=== PATIENT | male | born 1995 | race Caucasian/White ===

== ENCOUNTER 2018-11-30 15:25 | Outpatient (CLI) | payer BC, SELFPAY ==
[2018-11-30 16:00] LABS: HCT 42.6 % (40.0-50.0); HGB 14.4 g/dL (13.5-17.5); Mean Corp. HGB Concentration 33.8 g/dL (32.0-36.0); Mean Corpuscular Hemoglobin 27.7 pg (27.0-33.0); Mean Corpuscular Volume 81.9 fL (80-95); Mean Platelet Volume 9.2 fL (8.0-11.0); Platelet Count 287 x1000/uL (130-400); RBC Distribution Width 12.9 % (11.8-14.1)
[2018-11-30 18:10] LABS: ALT 80 U/L (12-78); AST 42 U/L (15-37); Albumin 4.2 g/dL (3.4-5.0); Alkaline Phosphatase 94 U/L (46-116); Anion Gap 9.6 mmol/L (3-11); BUN 15 mg/dL (7-18); Bilirubin, Total 0.4 mg/dL (0.2-1.0); CO2 27.4 mmol/L (21.0-32.0); CREATININE 0.92 mg/dL (0.70-1.30); Calcium 9.1 mg/dL (8.5-10.1); Chloride 103 mmol/L (98-107); Glucose 90 mg/dL (70-100); Sodium 140 mmol/L (136-145); TSH (W/Ref FT4) 1.66 uIU/mL (0.358-3.74); Total Protein 7.6 g/dL (6.4-8.2)
== END 2018-11-30 15:45 ==
PROVIDERS: Family Medicine; PCP Family Medicine; Visit Provider Family Medicine
DX: F41.9 Anxiety disorder, unspecified (principal); F39 Unspecified mood [affective] disorder
CPT/HCPCS: 36415; 80053; 85027; 84443

== ENCOUNTER 2019-03-02 15:16 | Emergency (ER) | payer BC, SELFPAY ==
[2019-03-02 15:18] VITALS: BP 128/77; PULSE 81; RESP 12; TEMP 36.5; O2SAT 98
--- NOTE | 2019-03-02 17:10 | ED.GENADUL_ITS ---
Discharge Plan Disposition Patient Disposition: HOME Condition: Stable Discharge Details Chief Complaint: Orthopedic Clinical Impression: Cellulitis of ring finger Primary Care Provider: Gab Adrian ED Provider: Shawna Mota Home Meds and New Rx's Prescriptions: New cephalexin [Keflex] 500 mg capsule 500 mg PO QID 7 Days Qty: 28 RF: 0 sulfamethoxazole-trimethoprim [Bactrim DS] 800-160 mg tablet 1 tab PO BID 7 Days Qty: 14 RF: 0 Continued Aspirin/Acetaminophen/Caffeine [Excedrin Extra Strength Caplet] 1 EACH tablet 1 - 2 ea PO PRN RF: 0 fexofenadine [Aller-ease] 180 MG tablet 180 mg PO PRN RF: 0 ibuprofen 800 MG tablet 800 mg PO TID PRNQty: 20 RF: 0 naproxen sodium [Aleve] 220 mg Capsule 440 mg PO BID RF: 0 No Action ketoconazole 2 % cream 1 applic TP BID Qty: 15 RF: 0 Discharge Instructions Instructions: Cellulitis (ED) Additional Instructions: Take the antibiotics until finished. Call Dr. Mccormack tomorrow morning to schedule a follow-up appointment for reevaluation. Return immediately to the emergency department with any worsening or new concerning symptoms such as fever, increased pain, redness, and swelling. Discharge Data Discharge Date/Time-TO BE ENTERED AT DEPARTURE: 03/02/19 18:29 Discharge Physician: Shawna Mota Medical Decision Making 23-year-old male 1 month status post left wrist ganglion cystectomy and left radio lunate ligament repair who presents with difficulty with full flexion of left fourth finger for the past month, now with development of left fourth fing er erythema and pain. There is redness streaking along the radial aspect of the left fourth finger extending from the base to the tip that appears consistent with a left fourth finger cellulitis/lymphangitis. Unclear if this is related to the surgery but doubtful. Patient states he was scratched by a cat few days ago and there is a very minimal area of erythema approximately 1 mm overlying incision but there is no red streaking extending from the incision. No signs of flexor tenosynovitis. He is otherwise neurovascular intact. There is no evidence of paronychia or or wrist or hand abscess. Has this does appear consistent with infection, will treat with Keflex and call orthopedics at [facility] ([place], [place]) for recommendations. I do not see any indication for imaging at this time. 1730 --discussed with Dr. Horn covering for Dr. Mccormack at [facility] -as there is no signs of flexor tenosynovitis, okay for outpatient antibiotics and recommends adding Bactrim and for patient to call Dr. Mccormack tomorrow for follow-up. Patient advised to call Dr. Mccormack tomorrow morning for follow-up and to return here with any worsening or concerning symptoms HPI General Mode of arrival: ambulatory . Date/Time Provider Initiated Documentation: 03/02/19 15:37 . Limitations to Documentation: no limitations . Information obtained by: patient . HPI Narrative: Patient is a 23-year-old male 1 month status post left wrist ganglion cystectomy and left radio lunate ligament repair by Dr. Mccormack at [facility] who presents with difficulty with full flexion of left fourth finger for the past month, now with development of left fourth finger erythema and pain that he noticed this morning. He denies any injury. He did state that he was scratched by his cat on the incision on his l eft wrist a few days ago. He denies any fever. He states he has not contacted Dr. Mccormack regarding any of these symptoms. He states his tetanus is up to date. Related Data Home Medications Medication Instructions Recorded Confirmed fexofenadine [Aller-ease] 180 mg PO PRN 04/09/14 03/02/19 ibuprofen 800 mg PO TID PRN #20 tab 04/09/14 03/02/19 Aspirin/Acetaminophen/Caffeine 1 - 2 ea PO PRN 01/04/18 03/02/19 [Excedrin Extra Strength Caplet] cephalexin [Keflex] 500 mg PO QID 7 Days #28 cap 03/02/19 naproxen sodium [Aleve] 440 mg PO BID 03/02/19 03/02/19 sulfamethoxazole-trimethoprim 1 tab PO BID 7 Days #14 tab 03/02/19 [Bactrim DS] ketoconazole 1 applic TP BID #15 gm 03/04/19 Previous Rx's Medication Instructions Recorded ibuprofen 800 mg PO TID PRN #20 tab 04/09/14 cephalexin [Keflex] 500 mg PO QID 7 Days #28 cap 03/02/19 sulfamethoxazole-trimethoprim 1 tab PO BID 7 Days #14 tab 03/02/19 [Bactrim DS] ketoconazole 1 applic TP BID #15 gm 03/04/19 Allergies Allergy/AdvReac Type Severity Reaction Status Date / Time albuterol Allergy Unknown Unverified 03/04/19 16:28 amoxicillin [Amoxicillin] AdvReac Unknown Unverified 03/04/19 16:28 potassium clavulanate AdvReac Unknown Unverified 03/04/19 16:28 [From Augmentin] General Stated Complaint: Orthopedic KRISTIAN: 4 Review of Systems Review of Systems All systems reviewed & are unremarkable except as noted in HPI and below Constitutional Reports as per HPI, Denies chills and Denies fever(s) Eyes Denies blurry vision ENT Denies dizziness, Denies sore throat and Denies throat swelling Cardiovascular Denies chest pain and Denies dyspnea Respiratory Denies cough and Denies dyspnea Gastrointestinal Denies abdominal pain, Denies diarrhea and Denies vomiting Genitourinary Denies hematuria and Denies dysuria Musculoskeletal Denies back pain, Denies numbness and Reports other (L 4th finger pain ) Integumentary/Breasts Denies lesions and Denies rash Neurologic Denies dizziness, Denies focal weakness and Denies numbness Allergic/Immunologic Denies throat swelling [facility] Medical History Anxiety Surgical History Biopsy, Soft Tissue (02/16/18) Family History Mother No problems noted. Father No problems noted. Sister No problems noted. Sister No problems noted. Grandfather Essential hypertension Heart disease Hyperlipidemia Grandfather Diabetes Essential hypertension Grandmother Essential hypertension Grandmother Personal history of malignant neoplasm Social History Smoking/Tobacco Use Status: Never Alcohol Intake: current Alcohol Intake frequency: a few times a month Drug use: Never Substance use type: does not use Do you feel safe at home: Yes Do you feel safe in your relationship?: Yes Exam Const General: cooperative, healthy appearing and no acute distress HENMT Head: normal to inspection Mouth: oral mucosae normal Eyes General: appearance normal, both eyes and all related structures Neck Neck: normal visual inspection Resp Effort & Inspection: normal respiratory effort and able to speak in complete sen tences Cardio Rate: regular rate Skin General skin exam: no rashes or lesions noted Neuro General: alert, awake and oriented x3 Motor: muscle tone normal throughout Extrem Hand/finger images: 1. 2 cm well-healing incision from previous ganglion cystectomy 2. Streaky erythema extending from base of medial fourth finger down to medial tip. There is no fluctuance, induration or obvious abscess. Other: Patient able to flex and extend at all fingers but with limitation of full flexion at left fourth finger due to edema. No pain with passive flexion or extension. Cap refill less than 2 seconds. Left radial and ulnar pulses intact. Psych Appearance: grossly normal Affect: normal affect Course Vital Signs Temperature 97.7 F 03/02/19 15:18 Pulse 81 03/02/19 15:18 Respiratory Rate 12 03/02/19 15:18 Blood Pressure 128/77 03/02/19 15:18 Pulse Oximetry 98 03/02/19 15:18 Temperature 97.7 F 03/02/19 15:18 Temperature Source Temporal Artery Scan 03/02/19 15:18 Pulse 81 03/02/19 15:18 Respiratory Rate 12 03/02/19 15:18 Respiratory Effort Non-Labored 03/02/19 15:20 Blood Pressure 128/77 03/02/19 15:18 Blood Pressure Position Sitting 03/02/19 15:18 Pulse Oximetry 98 03/02/19 15:18 Oxygen Delivery Method Room Air 03/02/19 15:18 Oxygen Flow Rate 0 03/02/19 15:18 Pain Level 2 03/02/19 15:20
[2019-03-02] MEDS: Cephalexin 500 MG CAP PO ×2 (17:13→17:48)
[2019-03-02] MEDS: Sulfameth/Trimeth DS TAB 1 TAB PO ×2 (17:48)
== END 2019-03-02 18:29 | disposition home or self-care (01) ==
PROVIDERS: Emergency Provider Physician Assistant; PCP Family Medicine
DX: L03.012 Cellulitis of left finger (principal)
CPT/HCPCS: 99283

== ENCOUNTER 2019-03-04 16:16 | Emergency (ER) | payer BC, SELFPAY ==
[2019-03-04 16:19] VITALS: BP 142/78; PULSE 95; RESP 16; TEMP 36.8; O2SAT 100
--- NOTE | 2019-03-04 16:31 | ED.GENADUL_ITS ---
Discharge Plan Disposition Patient Disposition: HOME Condition: Good Discharge Details Chief Complaint: RashLesion Clinical Impression: Jock itch Primary Care Provider: Gab Adrian ED Provider: Jonathan Maldonado Home Meds and New Rx's Prescriptions: New ketoconazole 2 % cream 1 applic TP BID Qty: 15 RF: 0 Continued Aspirin/Acetaminophen/Caffeine [Excedrin Extra Strength Caplet] 1 EACH tablet 1 - 2 ea PO PRN RF: 0 fexofenadine [Aller-ease] 180 MG tablet 180 mg PO PRN RF: 0 ibuprofen 800 MG tablet 800 mg PO TID PRNQty: 20 RF: 0 naproxen sodium [Aleve] 220 mg Capsule 440 mg PO BID RF: 0 cephalexin [Keflex] 500 mg capsule 500 mg PO QID 7 Days Qty: 28 RF: 0 sulfamethoxazole-trimethoprim [Bactrim DS] 800-160 mg tablet 1 tab PO BID 7 Days Qty: 14 RF: 0 Discharge Instructions Instructions: Jock Itch (ED) Additional Instructions: Please make sure that your underwear, groin and folds are dry at all times. Please use the cream as directed. If you notice spreading of the rash to your arms chest abdomen extremities or other areas please return immediately for reassessment. At this time your symptoms are consistent with a mild yeast infection, and inconsistent with an allergic drug reaction. Continue the antibiotics that you are currently taking. If you notice any worsening of your symptoms, or any new symptoms such as vomiting, diarrhea, fever, chills, shortness of breath, chest pain, numbness, weakness, or fainting , please return immediately to the emergency department for reevaluation. Please follow up with your primary care provider as soon as possible for reassessment and reevaluation. As always, it was a pleasure participating in your medical care today. Referrals: Gab Adrian MD [Primary Care Provider] - Medical Decision Making This is a pleasant 23-year-old male who presents for evaluation of rash on his groin. The patient recently had an infection on his ring finger on his left nondominant hand he was given Bactrim and Keflex, since starting these he did notice mild very itchy rash to his groin bilaterally. This certainly in the pannus fold. It is very moist. Exam demonstrates signs and symptoms consistent with a mild fungal infection,/jock itch. Inconsistent with an allergic drug reaction. No oral lesions. No current clinical evidence of staph scalded skin syndrome, erythema multiforme, erythema migrans, toxic epidermal necrolysis, Sharma-Kana syndrome, Kawasaki-like rash, meningococcemia, pemphigus vulgaris, or necrotizing fasciitis. At this time recommend continuing the current antibiotics, we will add a topical antifungal cream. We discussed red flags which to return, as well as signs and symptoms that would be concerning for an allergic drug reaction rather than just a mild yeast infection. I have extensively reviewed the treatment plan and discharge instructions with the patient. I have addressed all patient concerns at this time. The patient was made aware of what symptoms to monitor for that would warrant a return to the emergency department. Discussed the plan with the patient, they demonstrate verbal understanding and agreement with our assessment and plan at this time. HPI General Date/Time Provider Initiated Documentation: 03/04/19 16:21 . HPI Narrative: This is a pleasant 23-year-old male who presents today for evaluation of rash. Patient had a ganglionic cyst removed from his left wrist proximal to his index finger over a week ago. Things have been doing very well postoperatively however few days afterwards which was about 3 days ago, he noticed a red lesion on the lateral aspect of his ring finger, shortly thereafter the redness quickly spread up his extensor tendon, and around the finger. He was seen in the ED at that time, and started on Keflex and Bactrim. He has been taking this and the redness has been significantly improving. The pain is also been notably improving in his finger. No clinical evidence of f lexor tenosynovitis. He is scheduled to follow-up with his orthopedic surgeon in 4 days on Thursday. However he has noticed a bit of a notably itchy rash on his left and right groin since then. He denies any rash on the rest of his body, he denies any lesions in his mouth. He denies any fever or chills. He has no other complaints. No other modifying factors. Related Data Home Medications Medication Instructions Recorded Confirmed fexofenadine [Aller-ease] 180 mg PO PRN 04/09/14 03/02/19 ibuprofen 800 mg PO TID PRN #20 tab 04/09/14 03/02/19 Aspirin/Acetaminophen/Caffeine 1 - 2 ea PO PRN 01/04/18 03/02/19 [Excedrin Extra Strength Caplet] cephalexin [Keflex] 500 mg PO QID 7 Days #28 cap 03/02/19 naproxen sodium [Aleve] 440 mg PO BID 03/02/19 03/02/19 sulfamethoxazole-trimethoprim 1 tab PO BID 7 Days #14 tab 03/02/19 [Bactrim DS] ketoconazole 1 applic TP BID #15 gm 03/04/19 Previous Rx's Medication Instructions Recorded ibuprofen 800 mg PO TID PRN #20 tab 04/09/14 cephalexin [Keflex] 500 mg PO QID 7 Days #28 cap 03/02/19 sulfamethoxazole-trimethoprim 1 tab PO BID 7 Days #14 tab 03/02/19 [Bactrim DS] ketoconazole 1 applic TP BID #15 gm 03/04/19 Allergies Allergy/AdvReac Type Severity Reaction Status Date / Time albuterol Allergy Unknown Unverified 03/04/19 16:28 amoxicillin [Amoxicillin] AdvReac Unknown Unverified 03/04/19 16:28 potassium clavulanate AdvReac Unknown Unverified 03/04/19 16:28 [From Augmentin] General Stated Complaint: RashLesion KRISTIAN: 4 Review of Systems Review of Systems All systems reviewed & are unremarkable except as noted in HPI and below PFSH Social History Smoking/Tobacco Use Status: Never Alcohol Intake: current Alcohol Intake frequency: a few times a month Drug use: Never Substance use type: does not use Do you feel safe at home: Yes Do you feel safe in your relationship?: Yes Exam Narrative Exam Narrative: 1.Const: Well-nourished, Well-developed, appearing stated age 2.Eyes: PERRL, no conjunctival injection, and symmetrical lids. 3.ENT: Atraumatic external nose and ears. Moist MM. Neck: Symmetric, trachea midline, No thyromegaly. 4.CVS: +S1/S2, No murmurs or gallops. Peripheral pulses 2+ and equal in all extremities. Brisk capillary refill in all extremities. 5.RESP: Unlabored respiratory effort. Clear to auscultation bilaterally. No wheezes rales or rhonchi 6.GI: Soft, Nontender/Nondistended, No hepatosplenomegaly. No guarding or rebound. 7.MSK: Normocephalic/Atraumatic, Extremities w/o deformity or ttp No cyanosis or clubbing, Normal movement of all extremities. Patient's left ring finger demonstrates a small amount of erythema on the medial and lateral aspect, it is not spread past the lines of demarcation that were written previously. In fact it is actually much more minor compared to when those initial lines were made. No significant warmth, fluctuance, or presence of abscess. No significant pain with passive or active flexion or extension of the finger. No other significant abnormalities. 8.Skin: Warm, Dry. Please see musculoskeletal for description of the finger. Patient's groin bilaterally demonstrates a blanching, mildly erythematous flat macular rash. No lesions on the chest back arms or legs. No oral lesions. N egative Nikolsky sign. No large vesicles or bulla. No palpable purpura. No oral lesions. No mucosal lesions. No evidence of severe cellulitis. No evidence of vaccine preventable rash. 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 Sensation grossly intact, no focal neurologic deficits. 10.Psych: (AAO) x3. Appropriate mood and affect Course Vital Signs Temperature 36.8 C 03/04/19 16:19 Pulse 95 H 03/04/19 16:19 Respiratory Rate 16 03/04/19 16:19 Blood Pressure 142/78 H 03/04/19 16:19 Pulse Oximetry 100 03/04/19 16:19 Temperature 36.8 C 03/04/19 16:19 Temperature Source Temporal Artery Scan 03/04/19 16:19 Pulse 95 H 03/04/19 16:19 Respiratory Rate 16 03/04/19 16:19 Respiratory Effort Non-Labored 03/04/19 16:23 Blood Pressure 142/78 H 03/04/19 16:19 Blood Pressure Position Sitting 03/04/19 16:19 Pulse Oximetry 100 03/04/19 16:19 Oxygen Delivery Method Room Air 03/04/19 16:19 Oxygen Flow Rate 0 03/04/19 16:19
== END 2019-03-04 16:47 | disposition home or self-care (01) ==
PROVIDERS: Emergency Provider Student in an Organized Health Care Education/Training Program; PCP Family Medicine
DX: B35.6 Tinea cruris (principal)
CPT/HCPCS: 99283

== ENCOUNTER 2019-10-24 08:27 | Outpatient (CLI) | payer BC, SELFPAY ==
[2019-10-26 09:34] LABS: COVID-19 RT-PCR Result Not Detected (NotDetected)
== END 2019-10-24 08:47 ==
PROVIDERS: PCP Family Medicine; Visit Provider Family Medicine
DX: R05 Cough (principal); R06.02 Shortness of breath
CPT/HCPCS: U0003

== ENCOUNTER 2019-10-28 08:09 | Outpatient (CLI) | payer BC, SELFPAY ==
--- NOTE | 2019-10-28 09:30 | DI.RAD_ITS ---
EXAM: XR CHEST 2V PA LATERAL CLINICAL HISTORY: Cough for 1 month,r05 TECHNIQUE: 2D digital imaging was performed. COMPARISON: RIBS BILATERAL TO INCLUDE CXR from 04/10/2014 FINDINGS: MEDIASTINUM: Normal. HEART: Normal. PULMONARY VASCULATURE: Normal. LUNGS: Clear. PLEURAL SPACE: No pleural effusion or pneumothorax. BONE:Normal. OTHER FINDINGS:Normal. IMPRESSION: No acute pulmonary findings. DATA REPOSITORY: RADIATION DOSE DELIVERED:
== END 2019-10-28 08:29 ==
PROVIDERS: PCP Family Medicine; Visit Provider Family Medicine
DX: R05 Cough (principal)
CPT/HCPCS: 71046

== ENCOUNTER 2020-04-13 13:29 | Outpatient (CLI) | payer BC, SELFPAY ==
[2020-04-16 19:07] LABS: Patient Race White; SARS-CoV-2 RNA Undetected (Undetected); SARS-CoV-2 Specimen Source Nasopharynx
== END 2020-04-13 13:49 ==
PROVIDERS: PCP Nurse Practitioner; Visit Provider Nurse Practitioner
DX: Z11.59 Encounter for screening for other viral diseases (principal)
CPT/HCPCS: U0003

== ENCOUNTER 2020-05-04 12:49 | Outpatient (CLI) | payer BC, SELFPAY ==
[2020-05-06 23:17] LABS: Patient Race White; SARS-CoV-2 RNA Undetected (Undetected); SARS-CoV-2 Specimen Source Nasal
== END 2020-05-04 13:09 ==
PROVIDERS: PCP Nurse Practitioner; Visit Provider Physician Assistant
DX: B34.9 Viral infection, unspecified (principal)
CPT/HCPCS: U0003

== ENCOUNTER 2020-05-04 13:31 | Outpatient (REF) | payer BC, SELFPAY | END 2020-05-04 13:51 | LOC: LBN 13:31 | PROVIDERS: PCP Nurse Practitioner; Visit Provider Physician Assistant | DX: J02.9 Acute pharyngitis, unspecified (principal) | CPT/HCPCS: 87070 ==

== ENCOUNTER 2020-05-05 19:49 | Emergency (ER) | payer BC, SELFPAY ==
[2020-05-05] VITALS (26 sets, daily range): BP systolic 121–152; BP diastolic 71–100; PULSE 76–101; RESP 10–40; TEMP 36.1; O2SAT 95–99
--- NOTE | 2020-05-05 19:45 | RT.EKG_ITS ---
APPROVED REPORT Exam: Resting ECG Patient Location: E HR:92 bpm ECG Measurements Heart Rate [address] 198 P 14 QRSd 91 QRS 49 QT 340 T 11 QTc 420 Conclusion EKG 19: 58 Rate 92, intervals normal, sinus rhythm, no significant ST elevations or depressions, no evidence of STEMI, Q waves is noted in lead III, flattened T waves noted in lead III. No evidence of other signi ficant dysrhythmia or abnormality.
--- NOTE | 2020-05-05 20:00 | DI.CT_ITS ---
EXAM: CT CHEST PE CTA CLINICAL HISTORY: chest pain, SOB, likely covid. TECHNIQUE: Imaging Protocol: Axial CT angiography was performed with multi-slice acquisition and mu lti-planar and/or 3D reconstructions. CONTRAST MATERIAL: Intravenous: Omnipaque 350 Contrast volume:structured data in ml COMPARISON: No exams were available for comparison FINDINGS: CT angiography of the chest was performed with intravenous infusion of 100 cc of Omnipaque 350. The lungs are clear. No pleural effusion. Tracheobronchial tree appears intact. No evidence of pulmonary embolic disease. Thoracic aorta is of normal diameter, no thoracic aortic an eurysm or dissection, major branch vessels appear intact. No mediastinal or hilar adenopathy. Images obtained through the upper abdomen show unremarkable appearance of the visualized portions of the liver, spleen, pancreas, adrenals, and kidneys. IMPRESSION: Negative CT angiogram of the chest. No evidence of pulmonary embolic disease. RADIATION DOSE DELIVERED: 663.96mGy.cm Total DLP 663.96mGy.cm Total DLP DATA REPOSITORY: All CT scans at this facility are submitted to the National Radiology Data Registry (NRDR) Dose Index Registry (DIR) with the [employer] ([employer]). RADIATION OPTIMIZATION: All CT scans at this facility use at least one of these dose optimization te chniques: automated exposure control; mA and/or kV adjustment per patient size (includes targeted exa ms where dose is matched to clinical indication); or iterative reconstruction.
[2020-05-05] MEDS: Normal Saline 1,000 ML 1000 ML IV (20:21)
--- NOTE | 2020-05-05 20:21 | W.ED.GENAD ---
Discharge Plan Disposition Patient Disposition: [facility] Condition: Serious Discharge Details Clinical Impression: Myocarditis, Chest pain Primary Care Provider: Camille Barbour ED Provider: Jonathan Maldonado Home Meds and New Rx's Prescriptions: No Action Aspirin/Acetaminophen/Caffeine [Excedrin Extra Strength Caplet] 1 EACH tablet 1 - 2 ea PO PRN RF: 0 Medical Decision Making 25-year-old male with no significant past medical history who presents today for evaluation of chest pain shortness of breath as well as nausea diarrhea in conjunction with chills and subjective fever. 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 He states that he has come in contact with the person who was Covid positive. Patient states that yesterday he developed his symptoms, as well as mild achy central chest pain. There does appear to be a pleuritic component. No particular aggravating factors. Minimal cough, notably nonproductive. He denies any blood in his stool, he denies any vomiting or hematemesis. He does occasionally smoke. He denies any long trips recent surgeries or procedures. He denies any history of blood clots. He denies any history of cardiac disease. He is obese. He denies high cholesterol hypertension though. No other complaints at this time. No other modifying factors. Physical exam demonstrates no signs of significant hypoxemia, heart rate is mildly tachycardic, blood pressure stable. Screening EKG shows no signs of STEMI, differential is notably highest for Covid/coronavirus. With no signs of [place] hypoxemia there is no current indication for aggressive ventilator or steroid management. However with his symptomatologies I do feel that further work-up is indicated. With his notable and pleuritic chest pain we will CT PE study, will evaluate for other components of organ dysfunction or damage, gently rehydrate, monitor closely and reassess. Additionally patient's results were reviewed and his coronavirus testing is not yet back. No indication for repeat testing at this time as he was just swabbed yesterday. 10:18 PM Patient's laboratory work-up has returned, no white count or left shift. No bandemia. No severe lymphopenia area. D-dimer 352, electrolytes are stable potassium slightly low at 3.3. We will give some IV potassium. Renal function normal. Troponin is 9.48, CRP is 11.4 notably elevated. Procalcitonin is 0.1. CT scan of the chest per virtual radiology shows no evidence of PE or other significant abnormality. EKG shows no evidence of STEMI. Elevated troponin in the setting of suspected viral etiology especially in conjunction with likely coronavirus component certainly leads to high concern for viral myocarditis. Bacterial endocarditis or myocarditis is less likely as the patient denies and has no history of IV or illicit drug use whatsoever. Because of this I did contact [facility], discussed the case with Dr. Pena, Dr. Marsh, Dr. Huertas, and eventually Dr. Sullivan with the medicine team, at this time they agree with the need for transfer. They recommend holding off on any additional medications, steroids, or heparinization at this time. Patient will be transferred via EMS to [facility] for further management. There is has no additional recommendations at this time. I have extensively reviewed the treatment plan with the patient. I have addressed all patient concerns at this time. I have also discussed the plan with the admitting physician and they agree with the current assessment and plan and have agreed to assume responsibility for the patient. All parties demonstrate verbal understanding and agreement with our assessment and plan at this time. At time of transfer the patient was reassessed and continued to demonstrate current hemodynamic stability. No signs of acute respiratory distress requiring intubation, hemodynamic instability requiring pressor support, or rapidly declining mental status. The patient is appropriate for transport. Also of note I have contacted the patient's family and discussed the case with them at the patient's request. EKG 19: 58 Rate 92, intervals normal, sinus rhythm, no significant ST elevations or depressions, no evidence of STEMI, Q waves is noted in lead III, flattened T waves noted in lead III. No evidence of other significant dysrhythmia or abnormality. FINDINGS: Pulmonary arteries: Normal. No pulmonary emboli. Aorta: Unremarkable. No aortic aneurysm. No aortic dissection. Lungs: Unremarkable. No consolidation. No masses. Pleural space: Unremarkable. No pneumothorax. No pleural effusion. Heart: Unremarkable. No cardiomegaly. No pericardial effusion. Lymph nodes: Unremarkable. No enlarged lymph nodes. Bones/joints: Unremarkable. No acute fracture. Soft tissues: Unremarkable. IMPRESSION: 1. No acute findings. 2. No pulmonary arterial embolism. 3. Clear lungs. No infiltrates or edema. 4. No pleural effusion. 5. No pericardial effusion. Thank you for allowing us to participate in the care of your patient. Dictated and Authenticated by: Pato Trent MD 05/05/2020 9:39 PM Eastern Time ([place] & [place]) HPI General Date/Time Provider Initiated Documentation: 05/05/20 19:56. HPI Narrative: 25-year-old male with no significant past medical history who presents today for evaluation of chest pain shortness of breath as well as nausea diarrhea in conjunction with chills and subjective fever. 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 He states that he has come in contact with the person who was Covid positive. Patient states that yesterday he developed his symptoms, as well as mild achy central chest pain. There does appear to be a pleuritic component. No particular aggravating factors. Minimal cough, notably nonproductive. He denies any blood in his stool, he denies any vomiting or hematemesis. He does occasionally smoke. He denies any long trips recent surgeries or procedures. He denies any history of blood clots. He denies any history of cardiac disease. He is obese. He denies high cholesterol hypertension though. No other complaints at this time. No other modifying factors. Related Data Home Medications Medication Instructions Recorded Confirmed Aspirin/Acetaminophen/Caffeine 1 - 2 ea PO PRN 01/04/18 05/05/20 [Excedrin Extra Strength Caplet] Allergies Allergy/AdvReac Type Severity Reaction Status Date / Time albuterol Allergy Unknown Unverified 05/05/20 20:10 amoxicillin [Amoxicillin] AdvReac Unknown Unverified 05/05/20 20:10 potassium clavulanate AdvReac Unknown Unverified 05/05/20 20:10 [From Augmentin] General Stated Complaint: Chest Pain KRISTIAN: 2 Review of Systems All systems reviewed & are unremarkable except as noted in HPI and below [facility] Medical History (Updated 05/05/20 @ 22:26 by Jonathan Maldonado DO) Anxiety Surgical History Biopsy, Soft Tissue (02/16/18) anterior chest wall, mature adipose tissue - consistent with lipoma. Family History Mother No problems noted. Father No problems noted. Sister No problems noted. Sister No problems noted. Grandfather Essential hypertension Heart disease Hyperlipidemia Grandfather Diabetes Essential hypertension Grandmother Essential hypertension Grandmother Personal history of malignant neoplasm Social History Smoking/Tobacco Use Status: Current-Occasional Tobacco: How many years used: 4 Quit status: quit date established Second Hand Exposure: Yes Alcohol Intake: current Alcohol Intake frequency: a few times a month Alcohol type: beer and hard liquor Drug use: Current Sobriety Substance use type: marijuana Details: quit before staqrting corrections 2-3 on months ago Caregiver/Support person: No Housing: apartment Do you need help understanding health information?: Rarely Pets and animals: No Sexually active: No Do you think of yourself as: straight/heterosexual Current gender identity: male What is your relationship status?: refused to answer How often do you talk on the phone with friends or family?: decline to answer How often do you get together with friends or relatives?: once per week How often do you attend anglican or congregation services?: decline to answer Do you belong to any clubs or organized social groups?: no Panel score (0-1 are the most socially isolated patients): 0 What type of physical activity do you participate in: decline to answer Duration: decline to answer Frequency: decline to answer Aggie/Religious: None Special aggie needs: No Seatbelt use: always 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 3.ENT: Atraumatic external nose and ears. Moist MM. Neck: Symmetric, trachea midline, No thyromegaly. 4.CVS: +S1/S2, No murmurs or gallops. Peripheral pulses 2+ and equal in all extremities. Brisk capillary refill in all extremities. 5.RESP: Unlabored respiratory effort. Clear to auscultation bilaterally. No wheezes rales or rhonchi 6.GI: Soft, Nontender/Nondistended, No hepatosplenomegaly. No guarding or rebound. 7.MSK: Normocephalic/Atraumatic, Extremities w/o deformity or ttp No cyanosis or clubbing, Normal movement of all extremities 8.Skin: Warm, Dry. No rashes or lesions. 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 Sensation grossly intact, no focal neurologic deficits. 10.Psych: (AAO) x3. Appropriate mood and affect Course Vital Signs Vital signs: Vital Signs Temperature 36.1 C L 05/05/20 20:00 Pulse 89 05/05/20 20:00 Respiratory Rate 18 05/05/20 20:00 Blood Pressure 149/88 H 05/05/20 20:00 Pulse Oximetry 97 05/05/20 20:00 Temperature 36.1 C L 05/05/20 20:00 Temperature Source Skin 05/05/20 20:00 Pulse 89 05/05/20 20:00 Respiratory Rate 18 05/05/20 20:11 Respiratory Effort 05/05/20 20:11 Blood Pressure 149/88 H 05/05/20 20:00 Pulse Oximetry 97 05/05/20 20:00 Oxygen Delivery Method Room Air 05/05/20 20:00 Oxygen Flow Rate 0 05/05/20 20:00 Lab/Test Results Lab/Test Results: 05/05/20 20:11 Blood Blood Culture - Pending 05/05/20 20:11 Blood Blood Culture - Pending
[2020-05-05 20:25] LABS: Abs Immature Grans 0.03 10^3/uL (0.0-0.06); Absolute Basophil Count 0.04 10^3/uL (0.0-0.2); Absolute Eosinophil Count 0.18 10^3/uL (0.0-0.7); Absolute Lymphocyte Count 1.79 10^3/uL (1.2-3.4); Absolute Monocyte Count 1.13 10^3/uL (0.1-0.8); Basophils % 0.4; HCT 45.4 % (40.0-50.0); HGB 15.5 g/dL (13.5-17.5); Immature Grans % 0.3; Lymphocytes % 19.5; MCH 27.6 pg (27.0-33.0); MCHC 34.1 % (32.0-36.0); MCV 80.9 fL (80-95); Monocytes % 12.3; Neutrophils % 65.5; Nucleated RBC 0 %; Platelet Count 247 10^3/uL (130-400); RBC 5.61 10^6/uL (4.36-5.78); RDW 12.4 % (11.8-14.1); RDW-SD 36.6 fL; WBC 9.17 10^3/uL (4.4-10.8)
[2020-05-05 20:34] LABS: Lactate 1.3 mmol/L (0.6-1.4)
[2020-05-05] MEDS: Ketorolac 15 MG/ML VIAL IVP (20:38)
[2020-05-05] MEDS: ACETAMINOPHEN 1,000 MG/100 ML BTL 400 MG IVPB (20:38)
[2020-05-05 20:48] LABS: ALT 21 U/L (16-63); AST 35 U/L (15-37); Alkaline Phosphatase 109 U/L (46-116); Anion Gap 8.8 mmol/L (3-11); BUN 14 mg/dL (7-18); CO2 27.2 mmol/L (21.0-32.0); Chloride 101 mmol/L (98-107); Glucose 101 mg/dL (74-106); LDH 210 U/L (85-227); Potassium 3.3 mmol/L (3.5-5.1); Sodium 137 mmol/L (136-145); Total Protein 8.8 g/dL (6.4-8.2)
[2020-05-05 20:53] LABS: Troponin I 9.48 ng/mL (<0.06)
--- NOTE | 2020-05-05 20:57 | NUR.NOTE ---
Nursing Note: AMADO 9.[address] CORTÉS 05/05/20
[2020-05-05] MEDS: Omnipaque 350 MG/ML 100 ML BTL IJ (21:19)
[2020-05-05 21:27] LABS: D-Dimer 352 ng/mlFEU (<500)
--- NOTE | 2020-05-05 21:40 | DI.VRAD_ITS ---
PROCEDURE INFORMATION: Exam: CT Angiography Chest With Contrast Exam date and time: 05/05/2020 9:11 PM Age: 25 years old Clinical indication: Shortness of breath TECHNIQUE: Imaging protocol: Computed tomographic angiography of the chest with intravenous contrast. 3D rendering (Not supervised by radiologist): MIP and/or 3D reconstructed images were created by the technologist. Radiation optimization: All CT scans at this facility use at least one of these dose optimization techniques: automated exposure control; mA and/or kV adjustment per patient size (includes targeted exams where dose is matched to clinical indication); or iterative reconstruction. Contrast material: MONPAQUE 350; Contrast volume: 100 ml; Contrast route: IV; COMPARISON: CR XR CHEST 2V PA LATERAL 10/28/2019 10:41 AM FINDINGS: Pulmonary arteries: Normal. No pulmonary emboli. Aorta: Unremarkable. No aortic aneurysm. No aortic dissection. Lungs: Unremarkable. No consolidation. No masses. Pleural space: Unremarkable. No pneumothorax. No pleural effusion. Heart: Unremarkable. No cardiomegaly. No pericardial effusion. Lymph nodes: Unremarkable. No enlarged lymph nodes. Bones/joints: Unremarkable. No acute fracture. Soft tissues: Unremarkable. IMPRESSION: 1. No acute findings. 2. No pulmonary arterial embolism. 3. Clear lungs. No infiltrates or edema. 4. No pleural effusion. 5. No pericardial effusion. Dictated and Authenticated by: Pato Trent MD. Ordering:FILIPPO Castillo MD
[2020-05-05 22:05] LABS: Procalcitonin 0.1 ng/mL
[2020-05-05] MEDS: Potassium Chloride 20 MEQ TABCR 40 MEQ PO (22:52)
[2020-05-05 23:37] LABS: Ferritin 160 ng/mL (26-388)
== END 2020-05-05 23:30 | disposition short-term general hospital (02) ==
PROVIDERS: Emergency Provider Student in an Organized Health Care Education/Training Program; PCP Nurse Practitioner
DX: I40.0 Infective myocarditis (principal); E87.6 Hypokalemia; R06.02 Shortness of breath; Z20.828 Contact with and (suspected) exposure to other viral communicable diseases
CPT/HCPCS: 36415; 71275; 80053; 84145; 87040; 87449; 93005; 96361; 96365; 96375; 99285; 82728; 83605; 83615; 84484; 85025; 85379; 86140; 93010; J0131; J1885; J3490

== ENCOUNTER 2020-06-27 18:31 | Outpatient (CLI) | payer BC, SELFPAY ==
[2020-06-27 13:33] LABS: Abs Immature Grans 0.03 10^3/uL (0.0-0.06); Absolute Basophil Count 0.04 10^3/uL (0.0-0.2); Absolute Eosinophil Count 0.19 10^3/uL (0.0-0.7); Absolute Lymphocyte Count 2.17 10^3/uL (1.2-3.4); Absolute Monocyte Count 0.55 10^3/uL (0.1-0.8); Absolute Neutrophil Count 4.96 10^3/uL (1.2-6.7); Basophils % 0.5; Eosinophils % 2.4; HCT 46.7 % (40.0-50.0); HGB 15.5 g/dL (13.5-17.5); Immature Grans % 0.4; Lymphocytes % 27.3; MCH 27.4 pg (27.0-33.0); MCHC 33.2 % (32.0-36.0); MCV 82.7 fL (80-95); MPV 8.8 fL (8.0-11.0); Monocytes % 6.9; Neutrophils % 62.5; Nucleated RBC 0 %; Platelet Count 272 10^3/uL (130-400); RBC 5.65 10^6/uL (4.36-5.78); RDW 12.1 % (11.8-14.1); RDW-SD 36.9 fL; WBC 7.94 10^3/uL (4.4-10.8)
[2020-06-27 13:45] LABS: Calculated LDL 102 mg/dL (<100); Cholesterol 172 mg/dL (<200); HDL Cholesterol 37 mg/dL (40-60); Triglyceride 168 mg/dL (<150)
[2020-06-27 13:55] LABS: ALT 25 U/L (16-63); AST 18 U/L (15-37); Albumin 3.9 g/dL (3.4-5.0); Alkaline Phosphatase 108 U/L (46-116); BUN 14 mg/dL (7-18); Bilirubin, Total 0.5 mg/dL (0.2-1.0); CREATININE 1.03 mg/dL (0.70-1.30); Chloride 104 mmol/L (98-107); Glucose 106 mg/dL (74-106); Sodium 140 mmol/L (136-145); TSH (W/Ref FT4) 2.01 uIU/mL (0.36-3.74)
[2020-06-27 13:59] LABS: Troponin I < 0.05 ng/mL (<0.06)
== END 2020-06-27 18:51 ==
PROVIDERS: Nurse Practitioner Family; Physician Assistant; PCP Nurse Practitioner; Visit Provider Nurse Practitioner
DX: R07.9 Chest pain, unspecified (principal); E66.01 Morbid (severe) obesity due to excess calories
CPT/HCPCS: 36415; 80053; 80061; 83735; 84443; 84484; 85025

== ENCOUNTER 2020-10-02 10:32 | Outpatient (CLI) | payer BC, SELFPAY ==
[2020-10-03 13:59] LABS: COVID-19 RT-PCR UVMMC Result Negative (Negative)
== END 2020-10-02 10:33 | disposition home or self-care (01) ==
PROVIDERS: PCP Nurse Practitioner; Visit Provider Nurse Practitioner
DX: Z20.822 Contact with and (suspected) exposure to COVID-19 (principal)
CPT/HCPCS: U0003

== ENCOUNTER 2021-04-12 09:37 | Outpatient (CLI) | payer BC, SELFPAY ==
--- NOTE | 2021-04-12 09:30 | RT.EKG_ITS ---
APPROVED REPORT Exam: Resting ECG Reason for Exam: dizziness Patient Location: O HR:54 bpm ECG Measurements Heart Rate 54 AXIS [place] 170 P 17 QRSd 96 QRS 50 QT 406 T 59 QTc 386 Conclusion Sinus bradycardia...rate< 60 Normal Electrocardiogram
== END 2021-04-12 09:38 | disposition home or self-care (01) ==
LOC: DI.CM 09:38
PROVIDERS: PCP Nurse Practitioner; Visit Provider Nurse Practitioner Family
DX: R07.9 Chest pain, unspecified (principal); R42 Dizziness and giddiness
CPT/HCPCS: 80053; 93010; U0003; 83735; 85025

== ENCOUNTER 2021-04-12 20:52 | Outpatient (REF) | payer BC, SELFPAY ==
[2021-04-12 21:06] LABS: Abs Immature Grans 0.02 10^3/uL (0.0-0.06); Absolute Basophil Count 0.07 10^3/uL (0.0-0.2); Absolute Eosinophil Count 0.25 10^3/uL (0.0-0.7); Absolute Lymphocyte Count 2.01 10^3/uL (1.2-3.4); Absolute Monocyte Count 0.73 10^3/uL (0.1-0.8); Absolute Neutrophil Count 5.31 10^3/uL (1.2-6.7); Basophils % 0.8; HCT 47.1 % (40.0-50.0); HGB 15.3 g/dL (13.5-17.5); Immature Grans % 0.2; MCH 27.8 pg (27.0-33.0); MCHC 32.5 % (32.0-36.0); MCV 85.5 fL (80-95); Monocytes % 8.7; Neutrophils % 63.3; Nucleated RBC 0 %; Platelet Count 283 10^3/uL (130-400); RBC 5.51 10^6/uL (4.36-5.78); RDW 12.5 % (11.8-14.1); RDW-SD 38.8 fL; WBC 8.39 10^3/uL (4.4-10.8)
[2021-04-12 21:18] LABS: ALT 23 U/L (16-63); AST 18 U/L (15-37); Albumin 4.4 g/dL (3.4-5.0); Alkaline Phosphatase 100 U/L (46-116); Anion Gap 6.4 mmol/L (3-11); BUN 13 mg/dL (7-18); Bilirubin, Total 0.4 mg/dL (0.2-1.0); CO2 29.6 mmol/L (21.0-32.0); Chloride 106 mmol/L (98-107); Glucose 98 mg/dL (74-106); Magnesium 2.3 mg/dL (1.8-2.4); Potassium 4.8 mmol/L (3.5-5.1); Sodium 142 mmol/L (136-145); Total Protein 8.1 g/dL (6.4-8.2)
[2021-04-14 14:12] LABS: COVID-19 RT-PCR UVMMC Result Negative (Negative)
== END 2021-04-12 20:53 | disposition home or self-care (01) ==
LOC: LBN 20:52
PROVIDERS: PCP Nurse Practitioner; Visit Provider Nurse Practitioner Family
DX: J06.9 Acute upper respiratory infection, unspecified (principal); R11.2 Nausea with vomiting, unspecified; R42 Dizziness and giddiness; I51.4 Myocarditis, unspecified; Z20.822 Contact with and (suspected) exposure to COVID-19
CPT/HCPCS: 80053; U0003; 83735; 85025

== ENCOUNTER 2021-04-17 07:26 | Outpatient (RCR) | payer BC, SELFPAY ==
--- NOTE | 2021-04-17 09:00 | HOLTER_ITS ---
APPROVED REPORT Conclusion This is a 48-hour Holter monitor ordered for dizziness Rhythm throughout was sinus. Average heart rate was 79. Minimum was 48, maximum 127 2 isolated PVCs were seen. There were 3 isolated atrial premature beats There was no atrial fibrillation, no high-grade AV block, no pauses greater than 3 seconds Patient symptoms of dizziness, flutter, and chest pain did not correspond to any dysrhythmia
== END 2021-05-12 23:59 | disposition home or self-care (01) ==
LOC: RT 07:26
PROVIDERS: PCP Nurse Practitioner; Visit Provider Nurse Practitioner Family
DX: R42 Dizziness and giddiness (principal)
CPT/HCPCS: 93225; 93226

== ENCOUNTER 2021-04-19 02:17 | Outpatient (CLI) | payer BC, SELFPAY ==
[2021-04-19 16:02] LABS: HCT 42.2 % (40.0-50.0); HGB 13.9 g/dL (13.5-17.5); MCH 27.4 pg (27.0-33.0); MCHC 32.9 % (32.0-36.0); MCV 83.2 fL (80-95); MPV 9.1 fL (8.0-11.0); Platelet Count 246 10^3/uL (130-400); RBC 5.07 10^6/uL (4.36-5.78); RDW 12.2 % (11.8-14.1); RDW-SD 36.9 fL; WBC 8.86 10^3/uL (4.4-10.8)
[2021-04-19 17:15] LABS: ALT 24 U/L (16-63); AST 18 U/L (15-37); Albumin 4.1 g/dL (3.4-5.0); Alkaline Phosphatase 97 U/L (46-116); Anion Gap 5.5 mmol/L (3-11); BUN 15 mg/dL (7-18); Bilirubin, Total 0.5 mg/dL (0.2-1.0); CO2 30.5 mmol/L (21.0-32.0); Calcium 8.5 mg/dL (8.5-10.1); Chloride 104 mmol/L (98-107); Glucose 84 mg/dL (74-106); Sodium 140 mmol/L (136-145); Total Protein 7.4 g/dL (6.4-8.2)
[2021-04-22 14:27] LABS: Lyme Ab w Rflx to Lyme Confirm Equivocal (Negative)
[2021-04-22 15:26] LABS: Lyme IgM Ab Negative (Negative)
[2021-04-22 15:39] LABS: Lyme IgG Ab Positive (Negative)
[2021-04-23 20:35] LABS: Anaplasma phagocytophilum Negative (Negative); B. miyamotoi PCR Negative (Negative); Babesia divergens/MO-1 Negative (Negative); Babesia duncani Negative (Negative); Babesia microti Negative (Negative); Ehrlichia chaffeensis Negative (Negative); Ehrlichia ewingii/canis Negative (Negative); Ehrlichia muris eauclairensis Negative (Negative)
== END 2021-04-19 02:18 | disposition home or self-care (01) ==
LOC: LBO 02:17
PROVIDERS: PCP Nurse Practitioner; Visit Provider Nurse Practitioner
DX: R53.83 Other fatigue (principal); R42 Dizziness and giddiness; W57.XXXA Bitten or stung by nonvenomous insect and other nonvenomous arthropods, initial encounter; T14.8XXA Other injury of unspecified body region, initial encounter
CPT/HCPCS: 36415; 80053; 85027; 86617; 87798; 86618

== ENCOUNTER 2021-06-25 19:05 | Outpatient (REF) | payer BC, SELFPAY ==
[2021-06-27 13:07] LABS: COVID-19 RT-PCR UVMMC Result Negative (Negative)
== END 2021-06-25 19:06 | disposition home or self-care (01) ==
LOC: LBN 19:05
PROVIDERS: PCP Nurse Practitioner; Visit Provider Nurse Practitioner
DX: Z20.822 Contact with and (suspected) exposure to COVID-19 (principal)
CPT/HCPCS: U0003

== ENCOUNTER 2022-02-18 21:29 | Outpatient (REF) | payer BC, SELFPAY ==
[2022-02-20 12:05] LABS: COVID-19 RT-PCR UVMMC Result Negative (Negative)
== END 2022-02-18 21:30 | disposition home or self-care (01) ==
LOC: LBN 21:29
PROVIDERS: PCP Nurse Practitioner; Visit Provider Nurse Practitioner Family
DX: Z20.822 Contact with and (suspected) exposure to COVID-19 (principal)
CPT/HCPCS: U0003

== ENCOUNTER 2022-04-17 16:54 | Outpatient (CLI) | payer OTHER, SELFPAY ==
--- NOTE | 2022-04-17 16:45 | RT.EKG_ITS ---
APPROVED REPORT Exam: Resting ECG Reason for Exam: chest discomfort Patient Location: O HR:86 bpm ECG Measurements Heart Rate 86 AXIS [place] 165 P 26 QRSd 93 QRS 42 QT 366 T 44 QTc 438 Conclusion Sinus rhythm...normal P axis, V-rate 50- 99 Normal Electrocardiogram
== END 2022-04-17 16:55 | disposition home or self-care (01) ==
LOC: DI.CM 16:55
PROVIDERS: PCP Nurse Practitioner; Visit Provider Nurse Practitioner Family
DX: R07.89 Other chest pain (principal)
CPT/HCPCS: 93010

== ENCOUNTER → 2022-04-17 17:53 | Outpatient (CLI) | payer OTHER, SELFPAY ==
--- NOTE | 2022-04-17 18:11 | DI.RAD_ITS ---
Exam(s) XR CHEST 2V PA LATERAL EXAM: XR CHEST 2V PA LATERAL CLINICAL HISTORY: evaluate for pnuemonia vs bronchitis,CHRONIC COUGH R05.3. TECHNIQUE: 2D digital imaging was performed. COMPARISON: CR XR CHEST 2V PA LATERAL from 10/28/2019 FINDINGS: 2 views: Heart size is normal. The mediastinum is not widened. Lungs are clear. No infiltrates nor pleural effusions. IMPRESSION: No acute pulmonary findings. DATA REPOSITORY: RADIATION DOSE DELIVERED:
--- NOTE | 2022-04-17 18:50 | DI.VRAD_ITS ---
PROCEDURE INFORMATION: Exam: XR Chest Exam date and time: 04/17/2022 6:10 PM Age: 27 years old Clinical indication: Other: Eval pneu or bronchitis TECHNIQUE: Imaging protocol: Radiologic exam of the chest. Views: 2 views. COMPARISON: CR XR CHEST 2V PA LATERAL 10/28/2019 10:41 AM FINDINGS: Lungs: Unremarkable. No consolidation. Pleural spaces: Unremarkable. No pleural effusion. No pneumothorax. Heart/Mediastinum: Unremarkable. No cardiomegaly. Bones/joints: Unremarkable. IMPRESSION: 1. No acute findings. 2. Clear lungs and pleural space. 3. No hyperinflation. 4. Stable exam 10/28/2019. Dictated and Authenticated by: Pato Trent MD. Ordering:RUPALI Coffman MD
== END ==
PROVIDERS: PCP Nurse Practitioner; Visit Provider Nurse Practitioner Family
DX: R05.3 Chronic cough (principal)
CPT/HCPCS: 71046

== ENCOUNTER 2022-07-21 15:00 | Outpatient (REF) | payer OTHER, SELFPAY ==
[2022-07-22 09:34] LABS: IgA 312 mg/dL (85-499); IgG 1419 mg/dL (610-1616); IgM 113 mg/dL (35-242)
[2022-07-22 10:52] LABS: HIV-1/2 Ag & Ab Screen Negative (Negative)
[2022-07-23 11:06] LABS: IgE 12 IU/mL (<158)
== END 2022-07-21 15:01 | disposition home or self-care (01) ==
LOC: LBN 15:00
PROVIDERS: PCP Nurse Practitioner Family; Visit Provider Student in an Organized Health Care Education/Training Program
DX: U09.9 Post COVID-19 condition, unspecified (principal); I95.1 Orthostatic hypotension
CPT/HCPCS: 82533; 82784; 87389; 82785; 82787

== ENCOUNTER 2022-07-25 01:39 | Outpatient (CLI) | payer OTHER, SELFPAY ==
[2022-07-25] MEDS: Methacholine 100 MG VIAL IH (16:30)
[2022-07-25] MEDS: Inhaler, Assist Device 1 EACH MC (16:30)
[2022-07-25] MEDS: Albuterol HFA 18 GM 200 PUFF INH IH (16:30)
--- NOTE | 2022-07-28 10:24 | W.PFT ---
Date of service: 07/25/22 Time of Service: 13:38 Pulmonary Function Test Result Requesting Provider Sonam Indications: Dyspnea Interpretation Spirometry: There is no airflow limitation. There was a 28% decrease in FEV1% with administration of 4.0mg/mL methacholine. Lung Volumes: Normal lung volumes Diffusion Capacity: Normal diffusion Airway Pressure: Normal airways resistance Impression Normal baseline pulmonary function testing with a positive methacholine challenge. Clinical Correlation therefore is recommended.
== END 2022-07-25 01:40 | disposition home or self-care (01) ==
LOC: RT 01:39
PROVIDERS: PCP Nurse Practitioner Family; Visit Provider Student in an Organized Health Care Education/Training Program
DX: U09.9 Post COVID-19 condition, unspecified (principal); R06.09 Other forms of dyspnea; Z87.891 Personal history of nicotine dependence
CPT/HCPCS: 94060; 94070; 94726; 94729; 94010; J7674

== ENCOUNTER 2022-11-05 10:53 | Emergency (ER) | payer OTHER, SELFPAY ==
[2022-11-05] VITALS (7 sets, daily range): BP systolic 134–143; BP diastolic 66–83; PULSE 60–75; RESP 13–22; TEMP 36.8; O2SAT 98–99
--- NOTE | 2022-11-05 10:45 | RT.EKG_ITS ---
APPROVED REPORT Exam: Resting ECG Reason for Exam: chest pain Patient Location: E HR:60 bpm ECG Measurements Heart Rate 60 AXIS [place] 173 P 15 QRSd 98 QRS 45 QT 391 T 26 QTc 390 Conclusion Sinus rhythm...normal P axis, V-rate 60- 99 Low voltage, precordial leads...precordial leads <1.0mV Narrow complex normal sinus rhythm at a rate of 60. Normal axis. Intervals within normal limits. N o ST segment abnormalities. T wave flattening in lead III. Appears similar to prior dated last fall .
--- NOTE | 2022-11-05 11:45 | DI.RAD_ITS ---
Exam(s) XR CHEST 2V PA LATERAL EXAM: XR CHEST 2V PA LATERAL CLINICAL HISTORY: chest wall pain TECHNIQUE: 2D digital imaging was performed. COMPARISON: CR,XR XR CHEST 2V PA LATERAL from 04/17/2022 FINDINGS: HEART: Normal size. Aorta: Not dilated. PULMONARY VASCULATURE: Normal. LUNGS: Clear. PLEURAL SPACE: No pleural effusion or pneumothorax. BONE:Unremarkable for age. IMPRESSION: No acute abnormality. DATA REPOSITORY: RADIATION DOSE DELIVERED:
--- NOTE | 2022-11-05 11:45 | W.ED.GENAD ---
Discharge Plan Disposition Patient Disposition: Home Condition: Improving Discharge Details Clinical Impression: Acute costochondritis Primary Care Provider: Kimi Grayson ED Provider: Wilbur Martins Home Meds and New Rx's Prescriptions: New naproxen 250 mg tablet 250 mg PO BID PRNQty: 30 0RF Continued fexofenadine [Winsome Allergy] 180 mg tablet 180 mg PO DAILY fluticasone propion-salmeterol [Advair HFA] 230-21 mcg/actuation HFA aerosol inhaler 2 puff inhalation BID Qty: 12 9RF Patient Comments: not taking Rx Instructions: Rinse mouth after use Aspirin/Acetaminophen/Caffeine [Excedrin Extra Strength Caplet] 1 EACH tablet 1 - 2 ea PO PRN Discharge Instructions Instructions: Chest Wall Pain (ED) Discharge Data Discharge Physician: Wilbur Martins Medical Decision Making Patient presents to the emergency department complaining of left rib cage pain which is constant when he turns. EKG was done which is within normal limits. Clearly the patient has musculoskeletal pain x-ray does not show any rib fractures and the lungs are clear as read by me and the radiologist. At this time there is no further labs that need to be obtained the data analyzed shows pulselike the patient has musculoskeletal pain or costochondritis and will be discharged home on nonsteroidals. In the differential I told him to watch for rashes for this still could be early shingles but at this time it seems to be just musculoskeletal pain. Differential Diagnosis Differential Diagnosis: 1. Costochondritis 2. Muscle strain 3. Shingles Medical Records Medical records reviewed: Yes I reviewed the patient's medical records. Imaging Data Radiologic Study: Attestation: I personally reviewed and interpreted this imaging study as follows: Imaging: X-Ray My impression: No acute findings and x-ray as read by the radiologist and reviewed by me Radiologist's impression: Patient Name: Alcides Lo Jr Unit #: [id number] Loc: ER ? Ordering Provider:? Wilbur Martins M.D. Status: REG ER ? Primary Care Provider: Kimi Grayson SUPERVISOR FABRICATION Date of Exam: 11/05/22 Sex: M ? Admission Date: 11/05/22? : 1995 ? Age: 27 ? Exam(s) XR CHEST 2V PA ? LATERAL EXAM:? XR CHEST 2V PA ? LATERAL CLINICAL HISTORY:? chest wall pain TECHNIQUE:? 2D digital imaging was performed. COMPARISON:? CR,XR XR CHEST 2V PA ? LATERAL from 04/17/2022 FINDINGS: HEART: Normal size.? Aorta: Not dilated. PULMONARY VASCULATURE: Normal. LUNGS: Clear. ? PLEURAL SPACE: No pleural effusion or pneumothorax. BONE:Unremarkable for age.? IMPRESSION: No acute abnormality.? DATA REPOSITORY:? RADIATION DOSE DELIVERED:? Ordered By:? Wilbur Martins M.D. CC: ? Dictated By: Renetta Singleton M.D. ? 11/05/22 1216 ? <Electronically signed by Renetta Singleton M.D. in OV> ? 11/05/22 1216 Transcribed By: Renetta Singleton?? ECG Data Attestation: I personally reviewed and interpreted this ECG (s) as follows: Prior ECG tracings: available for review Interpretation: Normal sinus rhythm heart rate of [address]-T changes with normal AL intervals. HPI General Date/Time Provider Initiated Documentation: 11/05/22 11:45. HPI Narrative: Patient presents emergency department complaining of left-sided chest wall pain which he said it hurts when he touches the left lateral rib and hurts when he takes a deep breath hurts when he moves he complains about a sharp 4/10 pain. Denies any shortness of breath denies any cough reports the pain is constant since yesterday on the lateral side and exacerbated with movement and breathing. Related Data Home Medications Medication Instructions Recorded Confirmed Aspirin/Acetaminophen/Caffeine 1 - 2 ea PO PRN 01/04/18 11/05/22 [Excedrin Extra Strength Caplet] fexofenadine 180 mg tablet 180 mg PO DAILY 07/21/22 11/05/22 (Winsome Allergy) fluticasone propionate 230 2 puff inhalation BID #12 grams 07/28/22 11/05/22 mcg-salmeterol 21 mcg/actuation HFA inhaler (Advair HFA) naproxen 250 mg tablet 250 mg PO BID PRN #30 tabs 11/05/22 Previous Rx's Medication Instructions Recorded fluticasone propionate 230 2 puff inhalation BID #12 grams 07/28/22 mcg-salmeterol 21 mcg/actuation HFA inhaler (Advair HFA) naproxen 250 mg tablet 250 mg PO BID PRN #30 tabs 11/05/22 Allergies Allergy/AdvReac Type Severity Reaction Status Date / Time albuterol Allergy Unknown Verified 11/05/22 10:59 amoxicillin [Amoxicillin] AdvReac Unknown Verified 11/05/22 10:59 potassium clavulanate AdvReac Unknown Verified 11/05/22 10:59 [From Augmentin] General Stated Complaint: Chest Pain KRISTIAN: 3 Review of Systems All systems reviewed & are unremarkable except as noted in HPI and below Constitutional Constitutional: Reports as per HPI and Reports system reviewed and no additional complaints, except as documented Eyes Eyes: Reports system reviewed and no additional complaints, except as documented ENT Ears, Nose, Mouth, and Throat: Reports system reviewed and no additional complaints, except as documented Cardiovascular Cardiovascular: Reports as per HPI and Reports system reviewed and no additional complaints, except as documented Respiratory Respiratory: Reports system reviewed and no additional complaints, except as documented Gastrointestinal Gastrointestinal: Reports system reviewed and no additional complaints, except as documented Genitourinary Genitourinary: Reports system reviewed and no additional complaints, except as documented Musculoskeletal Musculoskeletal: Reports system reviewed and no additional complaints, except as documented Neurologic Neurologic: Reports system reviewed and no additional complaints, except as documented Psychiatric Psychiatric: Reports system reviewed and no additional complaints, except as documented Hematologic/Lymphatic Hematologic/Lymphatic: Reports system reviewed and no additional complaints, except as documented PFSH All Active Problems (Updated 11/05/22 @ 12:51 by Wilbur Martins MD) Acute costochondritis (Acute) Orthostatic hypotension (Acute) 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 Family History Mother No problems noted. Father No problems noted. Sister No problems noted. Sister No problems noted. Grandfather Essential hypertension Heart disease Hyperlipidemia Grandfather Diabetes Essential hypertension Grandmother Essential hypertension Grandmother Personal history of malignant neoplasm Social History Smoking/Tobacco Use Status: Current every day Tobacco Type: e-cigarettes Tobacco: How many years used: 4 Second Hand Exposure: Yes Smoking risk assessment performed?: Yes Alcohol Intake: current Alcohol Intake frequency: a few times a month Alcohol type: beer and wine Drug use: Rarely Substance use type: marijuana Details: quit before staqrting corrections 2-3 on months ago Caregiver/Support person: No Household members: family Housing: house Communication Needs: None Do you need help understanding health information?: Never Pets and animals: Yes Pets and animals: cat(s) Sexually active: No Do you think of yourself as: bisexual Current gender identity: male What is your relationship status?: never How often do you talk on the phone with friends or family?: three or more times per week How often do you get together with friends or relatives?: three or more times per week How often do you attend religion or hinduism services?: decline to answer Do you belong to any clubs or organized social groups?: no Panel score (0-1 are the most socially isolated patients): 1 What type of physical activity do you participate in: walking Duration: > 90 minutes/day Frequency: 5-6 times per week Aggie/Oriental Orthodox: No preference Special aggie needs: No Seatbelt use: always Drive intox or ride w/intox solo truck driver: No Do you feel safe at home: Yes Do you feel safe in your relationship?: Yes Exam Const General: cooperative, healthy appearing, comfortable and no acute distress HENMT Head: normal to inspection, no palpable skull fracture and normocephalic Eyes General: appearance normal, both eyes and all related structures Visual Matthews: normal visual matthews by confrontation Alignment and Position: alignment normal Neck Neck: normal visual inspection, full ROM and no lymphadenopathy Chest Chest: normal inspection of the chest and localized rib tenderness with anteroposterior compression left mid-axillary line involving the 7th rib Resp Effort & Inspection: normal respiratory effort and able to speak in complete sentences Auscultation: clear to auscultation bilaterally Percussion: percussion normal Cardio Jugular venous pressure: no JVD Rate: regular rate Rhythm: regular rhythm GI Inspection: normal to inspection Palpation: soft Back/Spine/Pelvis Thoracic/Lumbar Spine: thoracic and lumbar spine normal to inspection Skin General skin exam: no rashes or lesions noted Neuro General: patient alert, patient awake, patient oriented x3, gait normal, moves all extremities, normal light touch, pain and propioception, no focal motor deficits and CN's II-XI intact bilaterally Course Vital Signs Vital signs: Vital Signs Temperature 36.8 C 11/05/22 10:58 Pulse 72 11/05/22 10:58 Respiratory Rate 18 11/05/22 10:58 Pulse Oximetry 99 11/05/22 10:58 Temperature 36.8 C 11/05/22 10:58 Temperature Source Oral 11/05/22 10:58 Pulse 63 11/05/22 11:33 Pulse 66 11/05/22 11:40 Respiratory Rate 15 11/05/22 11:40 Respiratory Effort Normal 11/05/22 11:01 Respiratory Depth Normal 11/05/22 11:01 Respiratory Pattern Normal 11/05/22 11:01 Blood Pressure 143/66 H 11/05/22 11:33 Blood Pressure Mean 81 11/05/22 11:33 Pulse Oximetry 99 11/05/22 11:40 Oxygen Delivery Method Room Air 11/05/22 10:58 Oxygen Flow Rate 0 11/05/22 10:58 Pain Level 5 11/05/22 11:01 PAWSS Have you Been Recently Intoxicated or Drunk Within the Last 30 days?: No Have you Ever Experienced Previous Episodes of Alcohol Withdrawal?: No Have you ever Experienced Withdrawal Seizures?: No Have you ever Experienced Delirium Tremens(DT)s?: No Have you ever undergone Alcohol Rehabilitation Treatment (i.e, inpt ot outpatient treatment programs)?: No Have you ever Experienced Blackouts?: No Have you ever Combined Alcohol with other Downers within the last 90 days?: No Have you ever Combined Alcohol with any other Substance of Abuse during the last 90 days?: No Positive Blood Alcohol level on Presentation? [PCS.BAL]: No Evidence of Increased Autonomic Activity (i.e. HR>120, tremor, sweating, agitation, nausea)?: No Result: 0
== END 2022-11-05 13:10 | disposition home or self-care (01) ==
PROVIDERS: Emergency Provider Emergency Medicine Emergency Medical Services; PCP Nurse Practitioner Family
DX: M94.0 Chondrocostal junction syndrome [Tietze] (principal)
CPT/HCPCS: 93005; 99283; 71046; 93010; 99284

== ENCOUNTER 2023-10-26 17:17 | Outpatient (REF) | payer OTHER, SELFPAY ==
[2023-10-26 23:27] LABS: C Diff PCR Negative (Negative)
== END 2023-10-26 17:18 | disposition home or self-care (01) ==
LOC: NCHCN 17:17
PROVIDERS: PCP Nurse Practitioner Family; Visit Provider Physician Assistant Medical
DX: R19.7 Diarrhea, unspecified (principal)
CPT/HCPCS: 87329; 87493; 87505; 87177

== ENCOUNTER 2023-12-03 05:04 | Outpatient (CLI) | payer OTHER, SELFPAY ==
[2023-12-03 13:27] LABS: HCT 45.3 % (40.0-50.0); HGB 15.4 g/dL (13.5-17.5); MCH 27.9 pg (27.0-33.0); MCV 82 fL (80-95); MPV 8.9 fL (8.0-11.0); Platelet Count 259 10^3/uL (130-400); RBC 5.51 10^6/uL (4.36-5.78); RDW 12.3 % (11.8-14.1); RDW-SD 37.2 fL; WBC 10.62 10^3/uL (4.4-10.8)
[2023-12-03 13:53] LABS: Amylase 53 U/L (25-115); Anion Gap 9.5 mmol/L (3-11); BUN 17 mg/dL (7-18); CO2 27.5 mmol/L (21.0-32.0); Calcium 8.8 mg/dL (8.5-10.1); Chloride 103 mmol/L (98-107); Estimated GFR 105.79 (mL/min/1.73m2); Glucose 84 mg/dL (74-106); Lipase 17 U/L (16-77); Potassium 3.9 mmol/L (3.5-5.1); Sodium 140 mmol/L (136-145)
[2023-12-07 14:27] LABS: IgA 272 mg/dL (85-499); Interpretation (See Note); Tissue Transglutaminase IgA <4.0 CU (<20.0)
== END 2023-12-03 05:05 | disposition home or self-care (01) ==
LOC: LBO 05:04
PROVIDERS: PCP Nurse Practitioner Family; Visit Provider Nurse Practitioner Family
DX: K52.9 Noninfective gastroenteritis and colitis, unspecified (principal)
CPT/HCPCS: 36415; 80048; 82784; 83516; 83690; 85027; 82150

== ENCOUNTER 2023-12-05 15:42 | Outpatient (REF) | payer OTHER, SELFPAY ==
[2023-12-06 22:58] LABS: Campylobacter PCR Negative (Negative); Salmonella PCR Negative (Negative); Shiga Toxin PCR Negative (Negative); Shigella/Enteroinvasive Ecoli Negative (Negative)
[2023-12-09 12:34] LABS: Calprotectin 104 mcg/g
== END 2023-12-05 15:43 | disposition home or self-care (01) ==
LOC: LBN 15:42
PROVIDERS: PCP Nurse Practitioner Family; Visit Provider Nurse Practitioner Family
DX: K52.9 Noninfective gastroenteritis and colitis, unspecified (principal)
CPT/HCPCS: 87329; 87505; 83993; 87177

== ENCOUNTER 2024-06-06 14:24 | Outpatient (CLI) | payer OTHER, SELFPAY ==
--- NOTE | 2024-06-06 11:35 | DI.RAD_ITS ---
Exam(s) XR CHEST 2V PA LATERAL EXAM: XR CHEST 2V PA LATERAL CLINICAL HISTORY: R05.9 Cough eval pna TECHNIQUE: 2D digital imaging was performed of the chest. Three images were obtained. PA and later al views were obtained. COMPARISON: CR XR CHEST 2V PA LATERAL from 11/05/2022 FINDINGS: MEDIASTINUM: Normal. HEART: Normal. PULMONARY VASCULATURE: Normal. LUNGS: Clear. PLEURAL SPACE: No pleural effusion or pneumothorax. BONE:Within normal limits for the patient's age. OTHER FINDINGS:Normal. IMPRESSION: No acute pulmonary findings. DATA REPOSITORY: RADIATION DOSE DELIVERED:
--- OUTSIDE RECORDS SUMMARY | 2024-06-06 14:33 | XMS_ITS | Clinical Summary ---
Author Organization [facility] Address [address] [place] [address] Care Team Providers Care Calender Operator Name Role Phone Unknown, Provider MD Primary Care Provider Unava ilable Social History Tobacco Use Types Packs/Day Years Used Date Smoking Tobacco: Never Assessed Interpersonal Safety Answer Date Record ed Physically Hurt Never 02/13/2020 Verbally Threaten Not on file 02/13/2020 Sex and Gender Information Value Date Recorded Sex Assigned at Not on file Legal Sex Male 23:55 EDT Gender Identity Not on file Sexual Orientation Not on file Plan of Treatment Health Maintenance Due Date Last Done Comments Hepatitis C Screen 1995 Hepatitis B Vaccine (1 of 3 - 19+ 3-dose series) 03/19 COVID-19 Vaccine ( season) 2024 Care Teams Calender Operator Relationship Specialty Start Date End Date Unknown, Provider, PCP - General 02/16/18
--- OUTSIDE RECORDS SUMMARY | 2024-06-06 14:33 | XMS_ITS | Encounter Summary ---
Author Organization [facility] [place] [address] Care Team Providers Care Inside Channel Account Manager Name Role Phone Camille Barbour APRN Primary Care Provider [phone] Encounter Details Date Type Department Care Team (Late st Contact Info) Description 05/05/2020 External Results [place] [address] Social History Tobacco Use Types Packs/Day Years Used Date Smoking Tobacco: Never Assessed Sex and Gender Information Value Date Recorded Sex Assigned at Not on file Gender Identity Not on file Sexual Orientation Not on file documented as of this encounter Plan of Treatment Not on file documented as of this encounter Procedures Procedure Name Priority Date/Time Associated Diagnosis Comments ECG SCAN Routine 05/05/2020 documented in this encounter Results * Scan Doc: ECG (05/05/2020) Historical Provider MD WOODS MGR SCAN EX T ORDR/RSLT documented in this encounter Visit Diagnoses Not on filedocumented in this encounter Additional Health Concerns Infection Onset Date Last Indicated Resolved Time Rule Out COVID-19 05/06/2020 05/06/2020 05/06/2020 4:44 AM EDT Rule Out Respiratory 05/06/2020 05/06/2020 020 6:18 PM EDT Rule Out COVID-19 05/06/2020 05/06/2020 05/06/2020 5:28 PM EDT Enterovirus / Rhinovirus 05/06/2020 05/06/202010/2019 8:09 PM EST documented as of this encounter Care Teams Inside Channel Account Manager Relationship Specialty Start Date End Date Camille Barbour APRN [address] [place] [address] PCP - General Family Medicine 05/05/20 documented as of this encounter
--- OUTSIDE RECORDS SUMMARY | 2024-06-06 14:33 | XMS_ITS | Encounter Summary ---
Author Organization [facility] [place] [address] Care Team Providers Care Service Consultant Name Role Phone Camille Barbour JENNIFER Primary Care Provider [phone] Encounter Details Date Type Department Care Team (Late st Contact Info) Description 08/10/2020 [place] [id number] Joe Talavera MD [facility] [place] [address] Social History Tobacco Use Types Packs/Day Years Used Date Smoking Tobacco: Some Days Smokeless Tobacco: Never Comments:states its a social thing. Alcohol Use Standard Drinks/Week Comments Yes 0 (1 standard drink = 0.6 oz pure alcohol) very occasional 1-2 times a month Sex and Gender Information Value Date Recorded Sex Assigned at Not on file Gender Identity Not on file Sexual Orientation Not on file documented as of this encounter Miscellaneous Notes * Telephone Encounter - Joe Talavera MD - 08/10/2020 4:57 PM EST Spoke to patient over the phone regarding cardiac MRI result. Overall, reassuring resolution of thevast majority of late rosalva enhancement. We spoke about resuming normal activity. We will decrease metoprolol to 50 mg as I believe he is experiencing fatigue related to this. We will plan to continue at this dose for the rest of the year before stopping. Joe Talavera MD. documented in this encounter Plan of Treatment Not on file documented as of this encounter Visit Diagnoses Not on filedocumented in this encounter Care Teams Service Consultant Relationship Specialty Start Date End Date Camille Barbour APRN [address] [place], [place] [address]Y [facility] [address] [place] [address] PCP - General Family Medicine 05/05/20 documented as of this encounter
--- OUTSIDE RECORDS SUMMARY | 2024-06-06 14:33 | XMS_ITS | Continuity of Care Document ---
Author Organization [facility] Address [address] [place] [id number] Care Team Providers Care Boring Mill Operator Name Role Phone Kimi Grayson Primary Care Physician Karla Houser Unavailable Unavailable Encounter [facility] [id number] Date(s): 02/25/24 - 02/25/[address] [address]- Discharge Disposition: Home or Self Care Attending Physician: Ramesh Mcelroy DO Admitting Physician: Ramesh Mcelroy DO Referring Physician: Kimi Grayson Allergies, Adverse Reactions, Alerts Substance Criticality Severity Reaction Reaction Severity Status amoxicillin Unable to assess criticality Unknown Active Augmentin Unable to assess criticality Unknown Active Assessment and Plan Diagnostic Tests Pending * Surgical Pathology [facility] 02/25/24 Functional Status 02/25/24 ADLs Independent Medications albuterol 90 mcg/inh aerosol inhaler 1 puffs, Inhale, every 4 hr, PRN as needed for wheezing, # 8 g, 0 Refill(s) Start Date: 02/04/24 Status: Ordered Align 4 mg oral capsule 4 mg = 1 cap, Oral, Daily, # 28 cap, 0 Refill(s) Start Date: 02/04/24 Status: Ordered Dulcolax Laxative 5 mg oral tablet 10 mg = 2 tab, Oral, BID, with a full glass of water as directed for colonoscopy preparation, # 4 tab, 0 Refill(s), Pharmacy: [id number], 191, cm, 01/20/24 15:21:00 EDT, Height, 164.4, kg, 01/20/24 15:23:00 EDT, Weight Dosing Start Date: 01/20/24 Status: Ordered Excedrin Extra Strength oral tablet 2 tab, Oral, every 6 hr, PRN as needed for headache, # 50 tab, 0 Refill(s) Start Date: 02/04/24 Status: Ordered fexofenadine 180 mg oral tablet 180 mg = 1 tab, Oral, Daily, 0 Refill(s) Start Date: 01/20/24 Status: Ordered MiraLax oral powder for reconstitution See Instructions, As directed for colonoscopy preparation, # 238 g, 0 Refill(s), Pharmacy: [id number], 191, cm, 01/20/24 15:21:00 EDT, Height, 164.4, kg, 01/20/24 15:23:00 EDT, Weight Dosing Start Date: 01/20/24 Status: Ordered omeprazole 20 mg oral delayed release capsule 20 mg = 1 cap, Oral, Daily, 0 Refill(s) Start Date: 01/20/24 Status: Ordered Problem List Condition Confirmation Course Effective Dates Status Health St atus Informant Anxiety Confirmed Active Belching Confirmed Active Chronic diarrhea Confirmed Active Concussion injury of brain 1 Confirmed Active Depression Confirmed Active Difficulty breathing Confirmed Active Dislocation of shoulder 2 Confirmed Active Fatigue Confirmed Active Elevated blood pressure reading Confirmed Active Irregular heart rate Confirmed Active Knee sprain 3 Confirmed Active Morbid obesity Confirmed Active Myocarditis Confirmed Active Orthostatic hypotension Confirmed Active Post-acute sequelae of COVID-19 (PASC) Confirmed Active 1in high school 2in high school 3left knee torn meniscus, no surgery Procedures Procedure Date Related Diagnosis Body Site Status Biopsy of soft tissue 1 02/15/18 C ompleted Excision of lipoma Comple noé 1anterior chest wall, mature adipose tissue - consistent with lipoma Vital Signs Most recent to oldest [Reference Range]: 1 2 3 Temperature Tympanic [36.6-38.1 Deg C] 36.7 Deg C (02/25/24 10:58 AM) Temperature Temporal Artery [36-38 Deg C] 36.7 Deg C (02/25/24 10:22 AM) 36.1 Deg C (02/25/24 7:20 AM) Temperature Temporal Artery (DegF) [97.3-100 Deg F] 98.06 Deg F (02/25/24 10:22 AM) 96.98 Deg F *LOW* (02/25/24 7:20 AM) Apical Heart Rate [60-100 bpm] 85 bpm 1 (02/25/24 7:20 AM) Peripheral Pulse Rate [60-100 bpm] 54 bpm *LOW* (02/25/24 10:58 AM) 104 bpm *HI* (02/25/24 10:22 AM) Respiratory Rate [12-24 br/min] 14 br/min (02/25/24 10:58 AM) 14 br/min (02/25/24 10:22 AM) 16 br/min 2 (02/25/24 7:20 AM) Blood Pressure [90-140/60-90 mmHg] 124/54mmHg (02/25/24 10:58 AM) 124/54mmHg (02/25/24 10:22 AM) 132/88mmHg (02/25/24 7:20 AM) Mean Arterial Pressure, Cuff 77 (02/25/24 10:22 AM) 103 (02/25/24 7:20 AM) Blood Pressure Location Left arm (02/25/24 10:22 AM) Blood Pressure Method Automatic (02/25/24 10:22 AM) Weight Measured (lbs) 350.535 lb (02/25/24 7:20 AM) Weight Dosing 159.000 kg (02/25/24 7:20 AM) Height/Length Measured (inches) 75 inch (02/25/24 7:20 AM) BSA Measured 2.9 m2 (02/25/24 7:20 AM) Body Mass Index 43.81 kg/m2 (02/25/24 10:58 AM) 43.81 kg/m2 (02/25/24 7:20 AM) Height 190.50 cm (02/25/24 10:58 AM) 190.50 cm (02/25/24 7:20 AM) Weight 159 kg (02/25/24 10:58 AM) 159 kg (02/25/24 7:20 AM) 1Result Comment: Regualr heart rate 2Result Comment: lungs clear Social History Social History Type Response Tobacco Former tobacco user Tobacco Use:. Sex Discharge instructions * Vince Smith RN: PERFORM Event Display: Discharge Instructions Authored Date: [id number] ASUNCION STAFFORD JR :1995 Age:28 years Sex:Male Visit Date:02/25/2024 Primary Care Physician: [facility] Instructions We would like to thank you for allowing us to assist you with your healthcare needs. The following includes patient education materials and information regarding your injury/illness. Your Next Steps Instructions From Your Care Team Call for any increasing abdominal pain. ?? Diet as tolerated. ?? No operating dangerous machinery or driving until tomorrow. ?? Diet as tolerated. Medications What How Much When Why Instructions Next Dose Unchanged acetaminophen/ aspirin/ caffeine (Excedrin Extra Strength oral tablet) 2 tab Oral (given by mouth) Every 6 hours as needed for as needed for headache Unchanged albuterol (albuterol 90 mcg/ inh aerosol inhaler) 1 Puffs Inhale (breathe in) Every 4 hours as needed for as needed for wheezing Unchanged bifidobacterium infantis (Align 4 mg oral capsule) 1 Capsules Oral (given by mouth) Every day Unchanged bisacodyl (Dulcolax Laxative 5 mg oral tablet) 2 tab Oral (given by mouth) 2 times a day Bloating Burping Elevated fecal calprotectin Diarrhea Abdominal pain with a full glass of water as directed for colonoscopy preparation ?? Unchanged fexofenadine (fexofenadine 180 mg oral tablet) 1 tab Oral (given by mouth) Every day Unchanged omeprazole (omeprazole 20 mg oral delayed release capsule) 1 Capsules Oral (given by mouth) Every day Unchanged polyethylene glycol 3350 (MiraLax oral powder for reconstitution) See instructions Bloating Burping Elevated fecal calprotectin Diarrhea Abdominal pain As directed for colonoscopy preparation ?? Your Summary Your Care Team Admitting Physician - Ramesh Mcelroy DO Attending Physician - Ramesh Mcelroy DO Primary Care Physician - Kimi Grayson Referring Physician - Kimi Grayson Problems Ongoing - Any problem that you are currently receiving treatment for. Anxiety Belching Chronic diarrhea Concussion injury of brain Depression Difficulty breathing Dislocation of shoulder Elevated blood pressure reading Fatigue Irregular heart rate Knee sprain Morbid obesity Myocarditis Orthostatic hypotension Post-acute sequelae of COVID-19 (PASC) Discharge Vitals Temperature??(Tympanic) 98.1 ??F (36.7 ??C) Heart Rate??(Peripheral) 54 Respiratory Rate?? 14 Blood Pressure?? 124/54?? SpO2?? 97% Height?? 75.00 in (190.50 cm) Weight?? 350.60 lb (159 kg) BMI?? 43.81 Allergies Augmentin amoxicillin Patient/Medical Library Assistant Signature Patient Name:ASUNCION STAFFORD JR I have received this information and my questions have been answered. Patient/Medical Library Assistant Name: Patient/Medical Library Assistant Signature: Relationship to Patient: Witness Name/Signature: Date: Electronically Signed on: 02/25/2024 11:00 EDT Signed by: Patient Care team information Care Team Personnel Name: Kimi Grayson Position: No Access Member Role: Primary Care Physician Name: Karla Houser Position: Ambulatory - Leader Tier Member Role: Leader Tier
--- OUTSIDE RECORDS SUMMARY | 2024-06-06 14:33 | XMS_ITS | Encounter Summary ---
[place] [address] Care Team Providers Care Chief Of Safety And Protection Name Role Phone Camille Barbour JENNIFER Primary Care Provider [phone] Reason for Referral * Consultation (Routine) - Closed Specialty Diagnoses / Procedures Referred By Contac t Referred To Contact Cardiology Diagnoses Elevated troponin Acute viral myocarditis Enteroviral infection Rhinovirus I am referring to Cardiology my 25 y.o. male patient Alcides Lo for evaluation.follow up recovery from viral (rhino/enteroviral) myocarditis with elevated troponin T 0.5, consider utility of stress test *[place] [address] [facility] [address] [place] [phone] Referral ID Status Reason Start Date Expiration Date V isits Requested Visits Authorized [id number] Closed Specialty Service Requested 05/08/2020 05/08/2021 1 1 Reason for Visit * Auth/Cert Specialty Diagnoses / Procedures Referred By Contac t Referred To Contact Diagnoses Suspected COVID-19 virus infection Viral Myocarditis / ? Covid-19 Procedures EMERGENCY IPI Referral ID Status Reason Start Date Expiration Date Visits Re quested Visits Authorized [id number] 1 1 Encounter Details Date Type Department Care Team (Latest Contact Info) Description 05/06/2020 12:40 AM EDT - 05/08/2020 5:30 PM EDT Hospital Encounter [place] [address] [place] [address] [place] [address] Elevated troponin; Acute viral myocarditis; Enteroviral infection; Rhinovirus Discharge Disposition: Home Social History Tobacco Use Types Packs/Day Years [...] on file documented as of this encounter Last Filed Vital Signs Vital Sign Reading Time Taken Comments Blood Pressure 122/66 05/08/2020 5:05 PM EDT Pulse 79 05/08/2020 5:05 PM EDT Temperature 36.7 ??C (98.1 ??F) 05/08/2020 11:07 AM E DT Respiratory Rate 16 05/08/2020 11:07 AM EDT Oxygen Saturation 96% 05/08/2020 11:07 AM EDT Inhaled Oxygen Concentration - - Weight 144.3 kg (318 lb 2 oz) 05/08/2020 6:29 AM EDT Height 190.5 cm (6' 3) 05/06/2020 12:42 AM EDT Body Mass Index 39.76 05/06/2020 12:42 AM EDT documented in this encounter Discharge Summaries * Jose Herrera MD - 05/08/2020 4:53 PM EDT Discharge Summary Patient Name: Alcides Lo Patient Age: 25 y.o. Language: Trinidadian Race: White Ethnicity: Not nor Admit date: 05/06/2020 Discharge date and time: 05/08/2020 Attending Physician: Jose Herrera MD Follow-up Recommendations for Providers: -Per Cardiology recommendations, any ruykzczm-ln-jxbotkekw exertional activity should be avoided, given new diagnosis of myocarditis. Light exertional activity (that would not induce sweating) would be acceptable -Troponin T during hospitalization was elevated 0.5 but stable x4. Etiology is viral myocarditis. Check troponin in 1-2 weeks of discharge and assess chest pain/discomfort. Referral placed for [facility] Cardiology Inpatient Provider Contact Information: For questions regarding this document or issues relating to this hospitalization on the Medical Service, please contact your inpatient physician through the [facility] [employer] [facility] . Issues afterhours and on weekends will be handled by the Hospitalist staff on-call. Admission Diagnoses: Suspected COVID-19 virus infection [Z20.828] Discharge Diagnoses (Hospital Problems) and Secondary Diagnoses (Chronic Problems): Active Hospital Problems Diagnosis ??? Acute viral myocarditis ??? Rhinovirus ??? Elevated troponin ??? Hypokinesis ??? Suspected COVID-19 virus infection Resolved Hospital Problems No resolved problems to display. There are no active non-hospital problems to display for this patient. 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 Also endorses some dry cough, states that he has been taking shallow fast breaths over the last day or so. Also has had multiple episodes of watery diarrhea over the last 1-1/2 days. 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 At [facility] he had a Covid test done yesterday, results of which are still pending. Upon work-up he had elevated CRP at 11, troponin I around 9 with a normal EKG. Cardiology and ICU were consulted for transfer and felt that he should be on the hospital medicine service. Cardiology did not recommend heparinizing the patient due to likely suspicion for viral myocarditis rather than acute coronary event. ?? On arrival to [facility] patient due to high suspicion for COVID-19 he was brought in under isolation precautions repeat EKG and work-up has been ordered.. Currently he states he feels fine without any issues and is saturating well on room air. Other vitals are stable as well. Hospital Course: Patient admitted to Hospital Medicine, initially under COVID isolation precautions until two COVID swabs negative so isolation precautions discontinued with Infectious Diseases following. RVP showed entero/rhinovirus positive. Troponin T elevated at 0.5 stable x4, and chest discomfort improved with repositioning and ibuprofen. Mild cough and sneezing improved as well. Cardiology recommended TTE, which showed LVEF 60% with mild hypokinesis of RV apex. Cardiac MRI showed mildly reduced LVEF 52%, normal RV, patchy epicardial enhancement consistent with myocarditis. Cardiology recommended starting metoprolol succinate (50 mg daily for 4 days, then 100 mg daily). Per Cardiology recommendations, any notlvyxl-wa-gmrssbxsk exertional activity should be avoided, given new diagnosis of myocarditis.Light exertional activity (that would not induce sweating) would be acceptable. Patient hemodynamically stable for discharge with follow up with PCP and Cardiology in a few weeks to assess for repeatcardiac MRI. Patient's mother Bonny Lo [phone] updated at bedside. Vital Signs at Discharge: BP: 133/75, Heart Rate: 72, Temp: 36.7 ??C (98.1 ??F), Resp: 19, BMI (Calculated): 40.37 Height: 190.5 cm (6' 3) (05/06/2041) Weight: (!) 146.5 kg (323 lb) (05/06/2041) Functional and Cognitive Status: intact Important Studies and Lab Data: Labs: Last 3 wbc, hgb, hct plt Recent Labs 05/07/2041105/06/20141 WBC 7.1 9.0 HGB 13.4* 13.8 HCT 39.5* 41.3 PLATELET 224 210 Last 3 Lytes Recent Labs 05/07/2041105/06/20141 NA 141 139 K 4.0 3.5 CL 106 103 CO2 25 24 BUN 14 15 CREATININE 0.97 0.97 Last 3 LFTs Recent Labs 05/06/20141 AST 43* ALT 19 ALKPHOS 87 BILITOT 0.8 BILIDIR 0.3 Last Ca, Mg, Phos Recent Labs 05/07/20 0412 05/06/20141 CALCIUM 8.9 8.9 PHOS -- 3.2 Last 3 Coags Recent Labs 05/06/20141 PT 14.6* INR 1.3 PTT 25 Last 3 ProBNP, Trop, CK Recent Labs 05/07/2041105/06/20 2050 05/06/20 1330 05/06/20141 CK 328* -- -- 438* TROPONINT 0.54* 0.54* 0.50* 0.52* Last 3 TFT No results for input(s): TSH in the last 7068 hours. Invalid input(s): T4, FT4 Last 3 Lipids Recent Labs 05/06/20141 CHLPL 137 HDL 31 LDLDIRECT 87 Last 3 HgbA1C Recent Labs 05/06/20141 HA1C 5.0 Last CRP, SEDRATE Recent Labs 05/06/20 014 CRP 104.0* SEDRATE 28 Studies: Film Library- Storage Only Ct Chest Result Date: 05/05/2020 This exam is auto-finalizing. It's purpose is for storage only. Pending Studies and Lab Data: None Discharge Conditions/Prognosis: Stable Discharge to: Home Updated Allergies/ADRs: Allergies Allergen Reactions ??? Albuterol Palpitations Immunizations Given this Hospitalization: There is no immunization history on file for this patient. Discharge Medications: Your Medications New Medications Dose Details ibuprofen 600 mg Tab Commonly known as: Advil;Motrin Take 1 tablet by mouth every 6 hours as needed for Pain. 600 mg Quantity: 30 tablet Refills: 0 metoprolol succinate XL 100 mg Tablet sr Commonly known as: Toprol-XL Take 0.5 tablets by mouth daily for 4 days, THEN 1 tablet daily for 60 days. Start taking on: May 08, 2020 Quantity: 62 tablet Refills: 0 Smoking Status at Discharge: Social History Tobacco Use Smoking Status Current Some Day Smoker Smokeless Tobacco Never Used Tobacco Comment states its a social thing. Instructions Given to Patient at Discharge: Patient Instructions Instructions on Discharge to Home Why you were hospitalized - myocarditis secondary to entero/rhinovirus Call your doctor or seek medical attention if you develop the following - chest pain, palpitations,shortness of breath, syncope, fainting, fever, cough, weakness in an arm or leg Activity level - No moderate or intensive exertional activities. No boot camp. No sweating-inducingactivities. Only light activities (light walking, cooking, light housework) Diet - no change in previous diet Driving - as before hospitalization Shower/Bath - permitted Wound Care - none Home Oxygen therapy - none Changes in Your Medications: New Medications: metoprolol succinate Medication dose changes: none Stop these medications: none Follow-up: No future appointments. Your Inpatient Doctor: Jose Herrera MD Your Primary Care Provider: Camille Barbour, JENNIFER [phone] For questions regarding this document or issues relating to this hospitalization on the Medical Service, please contact your inpatient physician through the [facility] . Issues afterhours and on weekends will be handled by the Hospitalist staff on-call. Jose Herrera MD 05/07/2020 General Instructions None Discharge References/Attachments None documented in this encounter Discharge Instructions * Patient Instructions* Jose Herrera MD - 05/07/2020 7:12 AM EDT Instructions on Discharge to Home Why you were hospitalized - myocarditis secondary to entero/rhinovirus Call your doctor or seek medical attention if you develop the following - chest pain, palpitations,shortness of breath, syncope, fainting, fever, cough, weakness in an arm or leg Activity level - No moderate or intensive exertional activities. No boot camp. No sweating-inducingactivities. Only light activities (light walking, cooking, light housework) Diet - no change in previous diet Driving - as before hospitalization Shower/Bath - permitted Wound Care - none Home Oxygen therapy - none Changes in Your Medications: New Medications: metoprolol succinate Medication dose changes: none Stop these medications: none Follow-up: No future appointments. Your Inpatient Doctor: Jose Herrera MD Your Primary Care Provider: Camille Barbour, JENNIFER [phone] For questions regarding this document or issues relating to this hospitalization on the Medical Service, please contact your inpatient physician through the [facility] . Issues afterhours and on weekends will be handled by the Hospitalist staff on-call. Jose Herrera MD 05/07/2020 * Attachments The following attachments cannot be sent through Care Everywhere. * Myocarditis: General Info (Trinidadian) documented in this encounter Medications at Time of Discharge Medication Sig Dispensed Refills Start Date End Date ibuprofen (Advil;Motrin) 600 mg Tablet Take 1 tablet by mouth every 6 hours as needed for Pain. 30 tablet 05/07/2020 metoprolol succinate XL (Toprol-XL) 100 mg Tablet Sustained Release 24 hr Take 0.5 tablets by mouth daily for 4 days, THEN 1 tablet daily for 60 days. 62 tablet 05/08/2020 07/11/2020 documented as of this encounter Progress Notes * Jose Herrera MD - 05/08/2020 5:30 PM EDT Hospital Medicine - Attending Day of Discharge Documentation Discharge diagnosis Active Hospital Problems Diagnosis ??? Acute viral myocarditis ??? Rhinovirus ??? Elevated troponin ??? Hypokinesis ??? Suspected COVID-19 virus infection Resolved Hospital Problems No resolved problems to display. Secondary Issues There are no active non-hospital problems to display for this patient. I have personally seen and examined the patient and they are ready for discharge. I spent >30 minutes (Day of Discharge Code 68635) involved in the final examination of the patient, discussion of the hospital stay, instructions for continuing care to all relevant caregivers, and preparation of discharge records, prescriptions and referral forms. Plans ? Discharge to home ? Follow-up scheduled with Primary Care Provider, Cardiology Future Appointments and Orders Future Appointments and Orders Future Appointments Provider Department Dept Phone 05/09/2020 11:30 AM [facility] MR 3 MRI at [facility] Arrive at: [facility]Z [facility] [phone] Please arrive at the Lab 1 Hour and 15 Minutes prior to your scheduled time if your labs need to betaken. Future Orders Complete By Expires Referral to Cardiology [REF12 Custom] As directed Process Instructions: If no progress note charted, please enter Clinical details in comments. Scheduling Instructions: Comments: Please select a template from the list below: I am referring to Cardiology my 25 y.o. male patient Alcides Lo for evaluation. Testing which is available for review and which may be helpful in this evaluation include the following (Select ALL that apply, then hit Enter): [X] ECG [X] Echocardiogram [X] Other (specify) Cardiac MRI Most recent assessment: The most current assessment of this problem can be found in the eDH note dated 05/08/2020. My clinical question is: follow up recovery from viral (rhino/enteroviral) myocarditis with elevated troponin T 0.5, consider utility of stress test Pending specialist evaluation, I anticipate (Select One): [X] Consultation, Recommendations & Return to Primary Care Do not type below here [id number] Questions: My question or request is: See comment ? Please see the Discharge Summary for complete details of any medication changes and additional plans. * Jose Herrera MD - 05/07/2020 5:45 PM EDT Hospital Medicine Attending Daily Progress Note Admit Date: 05/06/2020 Hospital Day 1 day Active Hospital Problems Diagnosis ??? Suspected COVID-19 virus infection Resolved Hospital Problems No resolved problems to display. PMH There are no active non-hospital problems to display for this patient. Inpatient Medications: Scheduled ??? sodium chloride 0.9 % (flush) 5 mL Intravenous BID ??? enoxaparin 40 mg Subcutaneous Nightly Continuous infusions: PRN: sodium chloride 0.9 % (flush), lidocaine, acetaminophen, ondansetron OR ondansetron, ibuprofen Interval History: No acute overnight events ROS: Chest discomfort improved No chest pain, dyspnea, nausea or vomiting, abdominal pain Tolerating diet Physical Exam Vitals Range last 24 hrs Temperature Temp: [36.5 ??C (97.7 ??F)-37.2 ??C (99 ??F)] Heart Rate Heart Rate: [72-82] Blood Pressure BP: (115-133)/(57-80) Respiratory Rate Resp: [18-20] SpO2 SpO2: [97 %-100 %] Intake/Output Summary (Last 24 hours) at 05/07/20202043 Last data filed at 05/07/2020 192 Gross per 24 hour Intake 480 ml Output 0 ml Net 480 ml Patient Vitals for the past 168 hrs: Weight 05/06/20 0042 (!) 146.5 kg (323 lb) Body mass index is 40.37 kg/m??. Physical Exam Constitutional: Oriented to person, place, and time. Appears well-developed and well-nourished. No distress. HENT: Head: Normocephalic and atraumatic. Mouth/Throat: Oropharynx is clear and moist. No oropharyngeal exudate. Eyes: Pupils are equal, round, and reactive to light. Conjunctivae and EOM are normal. Right eye exhibits no discharge. Left eye exhibits no discharge. No scleral icterus. Neck: Normal range of motion. Neck supple. No JVD present. No tracheal deviation present. No thyromegaly present. Cardiovascular: Normal rate, regular rhythm and intact distal pulses. Exam reveals no gallop and nofriction rub. No murmur heard. Pulmonary/Chest: Effort normal and breath sounds normal. No stridor. No respiratory distress. No wheezes. No rales. No tenderness. Abdominal: Soft. Bowel sounds are normal. No distension and no mass. There is no tenderness. There is no rebound and no guarding. No hernia. Musculoskeletal: Normal range of motion. No edema, tenderness or deformity. Lymphadenopathy: No cervical adenopathy. Neurological: Alert and oriented to person, place, and time. Displays normal reflexes. No cranial nerve deficit or sensory deficit. Exhibits normal muscle tone. Coordination normal. Skin: Skin is warm and dry. No rash noted. Not diaphoretic. No erythema. No pallor. Psychiatric: Normal mood and affect. Behavior is normal. Judgment and thought content normal. Nursing note and vitals reviewed. Studies reviewed in eDH. Remarkable for the following: LABS: Last 3 wbc, hgb, hct plt Recent Labs 05/07/2041105/06/20141 WBC 7.1 9.0 HGB 13.4* 13.8 HCT 39.5* 41.3 PLATELET 224 210 Last 3 Lytes Recent Labs 05/07/2041105/06/20141 NA 141 139 K 4.0 3.5 CL 106 103 CO2 25 24 BUN 14 15 CREATININE 0.97 0.97 Last 3 LFTs Recent Labs 05/06/20141 AST 43* ALT 19 ALKPHOS 87 BILITOT 0.8 BILIDIR 0.3 Last Ca, Mg, Phos Recent Labs 05/07/20 04105/06/20141 CALCIUM 8.9 8.9 PHOS -- 3.2 Last 3 Coags Recent Labs 05/06/20141 PT 14.6* INR 1.3 PTT 25 Last 3 ProBNP, Trop, CK Recent Labs 05/07/2041105/06/20204905/06/20 1330 05/06/20141 CK 328* -- -- 438* TROPONINT 0.54* 0.54* 0.50* 0.52* Last 3 TFT No results for input(s): TSH in the last 7068 hours. Invalid input(s): T4, FT4 Last 3 Lipids Recent Labs 05/06/20141 CHLPL 137 HDL 31 LDLDIRECT 87 Last 3 HgbA1C Recent Labs 05/06/20141 HA1C 5.0 Last CRP, SEDRATE Recent Labs 05/06/20141 CRP 104.0* SEDRATE 28 FSBG Trend No results for input(s): POCGLU in the last 72 hours. MICRO: No results for input(s): URINECULTURE in the last 720 hours. No results for input(s): GRAMSTAIN, BFCX, LOWERRESPCX, TISSUECX in the last 720 hours. Recent Labs 05/06/20 0218 BLOODCX No growth at 1 day. ECG: Recent Labs 05/06/20 014 DIAGLINE Normal sinus rhythm Low voltage QRS Nonspecific ST and T wave abnormality Abnormal ECG No previous ECGs available Confirmed by MD Blake, Devang ([id number]) on 05/07/2020 6:33:36 AM QTCCALC 405 VASCULAR: No results for input(s): VBTEXTRPT in the last 720 hours. IMAGING: Film Library- Storage Only Ct Chest Result Date: 05/05/2020 This exam is auto-finalizing. It's purpose is for storage only. 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 COVID-19 PCR neg x2, found with positive RVP for entero/rhinovirus. Evidence of myocarditis with elevated troponin T?? Plan: #Rhino/enterovirus #Elevated troponin #Likely viral myocarditis #Chest pain - improved -Supportive care -TTE LVEF 60% with mild hypokinesis of RV apex -Pending Cardiac MRI per Cardiology recs IV access: Peripheral IV Tubes/Drains: none VTE Prophylaxis: enoxaparin Anticipated Disposition: home, no needs Goals of Care: full Updated mother at bedside 05/07 PCP: Camille Barbour, CONDITIONER TUMBLER OPERATOR [phone] Attestation: IPI Certification I certify that I am a [facility] credentialed attending provider with admitting privileges and that the patient meets or has met medical necessity to require an inpatient IPI level of care meeting a minimumof two midnights or is on the [facility] inpatient only procedure list (status C) due to: myocarditis requiring workup including echo and MRI Jose Herrera MD 05/07/2020 * ValReaganRadha N - 05/06/2020 1:47 PM EDT Nutrition Services Note - Low Nutrition Acuity Alcides Lo is a 25 y.o. male Reason for intervention: ICU admit Nutrition Plan: Continue current diet. Multivitamin with minerals. Monitor weight. Encourage good oral intake. Support and encouragement provided. 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 RN reports decreased appetite but that pt will often ask for snacks and order meals when he is hungry. RN denies need for supplements at this time.Nutrition Services will continue to monitor and f/u as needed. Active Orders Diet Regular diet Frequency: Effective Now Number of Occurrences: Until Specified Admit Weight: 146.51 kg Estimated body mass index is 40.37 kg/m?? as calculated from the following: Height as of this encounter: 190.5 cm (6' 3). Weight as of this encounter: 146.5 kg (323 lb). Wt Readings from Last 5 Encounters: 05/06/20 (!) 146.5 kg (323 lb) Weight loss: none Appetite: Fair (25%-50%) Food allergies:no known food allergies Chewing/Swallowing difficulty: none Nausea/Vomiting: no nausea and no vomiting Last Bowel Movement: 05/05/20 Patient education / questions: not appropriate for education Nutrition services to follow weekly through hospital course unless consulted in the interim. Radha Neal Pager: [phone] documented in this encounter H&P Notes * Dl Sullivan MD - 05/06/2020 2:20 AM EDT Inpatient Hospital Medicine - Admission Note Problem List: Active Hospital Problems Diagnosis ??? Suspected COVID-19 virus infection Resolved Hospital Problems No resolved problems to display. There are no active non-hospital problems to display for this patient. ID: 25 y.o. Male presents to [facility] with subjective fevers, chills, chest pain, mild shortness of breath,diarrhea and recent exposure to a Covid positive patient. 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 Also endorses some dry cough, states that he has been taking shallow fast breaths over the last day or so. Also has had multiple episodes of watery diarrhea over the last 1-1/2 days. 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 Upon work-up he had elevated CRP at 11, troponin I around 9 with a normal EKG. Cardiology and ICU were consulted for transfer and felt that he should be on the hospital medicine service. Cardiology did not recommend heparinizing the patient due to likely suspicion for viral myocarditis rather than acute coronary event. On arrival to [facility] patient due to high suspicion for COVID-19 he was brought in under isolation precautions repeat EKG and work-up has been ordered.. Currently he states he feels fine without any issues and is saturating well on room air. Other vitals are stable as well. Review of Systems: Review of Systems 10 point review of systems negative except above Past Medical and Surgical History: No past medical history on file. No past surgical history on file. Prior To Admission Medications: No medications prior to admission. Allergies: Allergies Allergen Reactions ??? Albuterol Palpitations Family History: No family history on file. Social History and Habits: Social History Socioeconomic History ??? Marital status: Single Spouse name: Not on file ??? Number of children: Not on file ??? Years of education: Not on file ??? Highest education level: Not on file Occupational History ??? Not on file Social Needs ??? Financial resource strain: Not on file ??? Food insecurity Worry: Not on file Inability: Not on file ??? Transportation needs Medical: Not on file Non-medical: Not on file Tobacco Use ??? Smoking status: Not on file Substance and Sexual Activity ??? Alcohol use: Not on file ??? Drug use: Not on file ??? Sexual activity: Not on file Lifestyle ??? Physical activity Days per week: Not on file Minutes per session: Not on file ??? Stress: Not on file Relationships ??? Social connections Talks on phone: Not on file Gets together: Not on file Attends confucianist service: Not on file Active member of club or organization: Not on file Attends meetings of clubs or organizations: Not on file Relationship status: Not on file ??? Intimate partner violence Fear of current or ex partner: Not on file Emotionally abused: Not on file Physically abused: Not on file Forced sexual activity: Not on file Other Topics Concern ??? Not on file Social History Narrative ??? Not on file Immunizations: There is no immunization history on file for this patient. Physical Exam: Last Set of Vitals and range of vitals over past 24 hours: Last value Range last 24 hrs Temperature Temp: 36.6 ??C (97.9 ??F) Temp: [36.6 ??C (97.9 ??F)-36.9 ??C (98.4 ??F)] Heart Rate Heart Rate: 73 Heart Rate: [73-80] Blood Pressure BP: 108/60 BP: (108-139)/(60-91) Respiratory Rate Resp: 20 Resp: [16-21] SpO2 SpO2: 98 % SpO2: [98 %-100 %] Body mass index is 40.37 kg/m??. Physical Exam Constitutional: General: He is not in acute distress. Appearance: He is obese. HENT: Head: Normocephalic. Nose: Nose normal. Mouth/Throat: Mouth: Mucous membranes are moist. Eyes: Pupils: Pupils are equal, round, and reactive to light. Neck: Musculoskeletal: Normal range of motion. Cardiovascular: Rate and Rhythm: Normal rate. Pulses: Normal pulses. Pulmonary: Effort: Pulmonary effort is normal. Breath sounds: Normal breath sounds. Abdominal: General: Abdomen is flat. Bowel sounds are normal. There is no distension. Palpations: Abdomen is soft. Musculoskeletal: Normal range of motion. General: No swelling or tenderness. Skin: General: Skin is warm and dry. Capillary Refill: Capillary refill takes less than 2 seconds. Neurological: General: No focal deficit present. Mental Status: He is alert. Psychiatric: Mood and Affect: Mood normal. Laboratory (Last 24 Hours): Recent Results (from the past 24 hour(s)) COVID-19 PCR Specimen: Nasopharyngeal Swab Symptoms->COVID-19 Suspected Result Value Ref Range Rapid SARS-CoV-2 RNA Not Detected Not Detected SARS-CoV-2 Source [employer]CRA[employer] Swab Basic Metabolic Panel (non-fasting) Result Value Ref Range Glucose Lvl 90 65 - 199 mg/dL BUN 15 10 - 20 mg/dL Creatinine 0.97 0.80 - 1.50 mg/dL Sodium 139 135 - 145 mmol/L Potassium 3.5 3.5 - 5.0 mmol/L Chloride 103 98 - 107 mmol/L CO2 24 22 - 31 mmol/L Anion Gap 12 5 - 15 mmol/L Calcium 8.9 8.5 - 10.5 mg/dL eGFR 109 >=60 mL/min/1.73 m?? eGFR 126 >=60 mL/min/1.73 m?? Magnesium Result Value Ref Range Magnesium 0.89 0.69 - 1.07 mmol/L Phosphorus Result Value Ref Range Phosphorus 3.2 2.5 - 4.5 mg/dL Hepatic Function Panel Result Value Ref Range Total Protein 7.3 6.1 - 8.0 gm/dL Albumin 4.3 3.2 - 5.2 gm/dL AST 43 (H) 0 - 39 unit/L ALT 19 0 - 55 unit/L Alk Phos 87 40 - 130 unit/L Total Bilirubin 0.8 0.2 - 1.3 mg/dL Bili, Direct 0.3 0.0 - 0.3 mg/dL Prothrombin Time Result Value Ref Range PT 14.6 (H) 9.4 - 12.5 sec INR 1.3 APTT Result Value Ref Range PTT 25 25 - 37 sec D-Dimer, Quantitative Result Value Ref Range D-Dimer, Quant 529 (H) 0 - 500 FEU ng/ml Ferritin Result Value Ref Range Ferritin 161 30 - 400 ng/mL CRP, acute inflammation Result Value Ref Range CRP 104.0 (H) <=4.9 mg/L Sedimentation rate Result Value Ref Range Sed Rate 28 2 - 28 mm/hr Hemogram Result Value Ref Range WBC 9.0 4.0 - 9.5 x10(3)/mcL RBC 5.05 4.58 - 5.54 x10(6)/mcL Hemoglobin 13.8 13.7 - 16.5 gm/dL Hematocrit 41.3 40.5 - 48.5 % MCV 81.8 (L) 82.9 - 93.1 fL MCH 27.3 (L) 27.5 - 32.1 pg MCHC 33.4 32.0 - 35.7 gm/dL Platelets 210 145 - 357 x10(3)/mcL RDWSD 37.7 36.0 - 45.0 fL RDWCV 12.6 11.4 - 13.8 % MPV 8.9 7.6 - 12.9 fL nRBC % Auto 0.0 % nRBC Abs Auto 0.000 0.000 - 0.000 x10(3)/mcL Differential, Automated Result Value Ref Range Neutrophils % 55.9 % Neutr Abs (ANC) 5.02 1.70 - 6.10 x10(3)/mcL Lymphocytes % 26.6 % Lymphocytes Abs 2.4 0.9 - 3.2 x10(3)/mcL Monocytes % 14.1 % Monocyte Abs 1.3 (H) 0.3 - 0.9 x10(3)/mcL Eosinophils % 2.6 % Eosinophils Abs 0.2 0.0 - 0.4 x10(3)/mcL Basophils % 0.6 % Basophils Abs 0.0 0.0 - 0.1 x10(3)/mcL Immature Gran % 0.20 % Verónica Gran Abs 0.02 0.00 - 0.04 x10(3)/mcL Troponin Result Value Ref Range Troponin-T 0.52 (H) 0.00 - 0.00 ng/mL CK Result Value Ref Range CK, Total 438 (H) 0 - 200 unit/L Microbiology: Blood Cultures: Ordered Urine Cultures: Radiology: CXR - CT - CT angiogram done at the outside hospital without any PE CT angiogram done at the outside hospital without any PE,no infiltrates seen either Ultrasound - MRI - Other Studies: EKG -normal sinus rhythm Echocardiogram - Vascular Studies - Pulmonary Report - Endoscopy - Assessment/plan: 25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 Initially at [facility] found to have elevated troponin I of up to 9 without any EKG changes, CT angio negative for PE and for infiltrates. Vital signs are stable, patient is saturating well on room air. Covid test has been ordered, results of which are still pending from yesterday there. On exam he appears to be well without any hypoxia or any physical findings. The plan is to admit him to the ICU under Covid precautions, retest for Covid, consult cardiology for likely myocarditis. Initially recommendation was not to heparinize due to no EKG changes and low suspicion for ACS. Covidresults will be followed and plan changed accordingly.A 2D echo and troponins cycling have been ordered as well to evaluate for viral myocarditis, will likely need full panel if Covid is negative. #Recent exposure to Covid positive patient #Elevated troponin #Likely viral myocarditis #Chest pain -Plan outlined as above #DVT prophylaxis-Lovenox CODE STATUS-full A copy of this document will be sent to the patient's Primary Care Physician and/or Referring Physician. Dl Sullivan MD 05/06/2020 documented in this encounter Miscellaneous Notes * Consult Note - Rg Ball MD - 05/08/2020 5:06 PM EDT Cardiology Consult Note Date of Consultation: 05/08/2020 Admit Date: 05/06/2020 Hospital Day 2 days Reason for Consult: Myocarditis Active Problems: Active Hospital Problems Diagnosis ??? Acute viral myocarditis ??? Rhinovirus ??? Elevated troponin ??? Hypokinesis ??? Suspected COVID-19 virus infection Resolved Hospital Problems No resolved problems to display. ID Alcides Lo is a 25 y.o. male with no significant PMH who presented for URI symptoms and concernfor COVID 19 and was found to have enterovirus with positive troponin secondary to a viral myocarditis. EF is borderline reduced, but he has not had CHF or arrhythmia. 24 hour events: - CMRI performed with borderline low EF and large amount of delayed gadolinium enhancement in a typical pattern for myocarditis. In-Patient Medications: ??? metoprolol succinate XL 50 mg Oral Daily ??? sodium chloride 0.9 % (flush) 5 mL Intravenous BID ??? enoxaparin 40 mg Subcutaneous Nightly Family History: No history of inherited cardiomyopathy. 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 Review of Systems: 4 point ROS is either negative or as described in HPI Physical Exam: Last value Range last 8 hrs Temperature Temp: 36.7 ??C (98.1 ??F) Temp: [36.7 ??C (98.1 ??F)] Heart Rate Heart Rate: 79 Heart Rate: [79] Blood Pressure BP: 122/66 BP: (120-122)/(63-66) Respiratory Rate Resp: 16 Resp: [16] SpO2 SpO2: 96 % SpO2: [96 %] Intake/Output Summary (Last 24 hours) at 05/08/2020 1706 Last data filed at 05/08/2020 1109 Gross per 24 hour Intake 800 ml Output 0 ml Net 800 ml Wt & BMI By Encounter Date Admission (Current) from 05/06/2020 in Intermediate Cardiac Care Unit [place] [facility] Weight (!) 144.3 kg (318 lb 2 oz) 1 05/08/2020 0629 BMI 40.37 1 05/06/2020 0042 General: Pleasant male in NAD, overweight Cardiac: RRR, S1/S2 of normal character and amplitude, no m/r/g. PMI Nondisplaced. JVP flat Respiratory: Adequate air entry throughout. No adventitious sounds Abdominal: Soft and non-tender with no organomegaly. Normal bowel sounds Extremities: No atrophy, no clubbing/cyanosis, no edema, radial/DP/PT pulses 2+ and symmetric Neurology: Without focal deficit Telemetry Review: NSR ECG: NSR, low voltage qrs, mild non-specific ST and T wave abnormalities. ECHO: 1. The left ventricular chamber size is normal. There is normal global left ventricular systolic function. The quantitative left ventricular ejection fraction by biplane Rodríguez's method is 60% with mild hypokinesis at the apical segments as coded below. 2. The right ventricle is probably normal in size. Right ventricular global systolic function is low normal with hypokinesis at the RV apex. 3. Other details as noted below. 4. IMPRESSION: Technically difficult study. Intravenous echo contrast was administered to enhance endocardial border definition. Subtle hypokinesis at the apex - consider viral myocarditis, stress-induced cardiomyopathy, or other. Consider further evaluation with a cardiac MRI if clinically indicated. CMR: IMPRESSION 1. Mildly reduced left ventricular function quantitated at 52% 2. Normal right ventricular size and function 3. Patchy epicardial enhancement consistent with the diagnosis of myocarditis ?? Recent Labs 05/07/2041105/06/20141 WBC 7.1 9.0 HGB 13.4* 13.8 HCT 39.5* 41.3 PLATELET 224 210 Recent Labs 05/07/2041105/06/20141 NA 141 139 K 4.0 3.5 CL 106 103 CO2 25 24 BUN 14 15 CREATININE 0.97 0.97 Recent Labs 05/06/20141 AST 43* ALT 19 ALKPHOS 87 BILITOT 0.8 BILIDIR 0.3 Recent Labs 05/07/2041105/06/20141 CALCIUM 8.9 8.9 MAGNESIUM -- 0.89 PHOS -- 3.2 Recent Labs 05/06/20141 INR 1.3 PT 14.6* PTT 25 Recent Labs 05/07/2041120 2050 05/06/20 1330 05/06/20 0142 CK 328* -- -- 438* TROPONINT 0.54* 0.54* 0.50* 0.52* No results found for: PROBNP Assessment/Recommendations: 25 year old male with enterovirus myocarditis with borderline to mildly reduced EF and typical pattern of patchy epicardial enhancement on cardiac MRI 05/08/2020. No CHF or dysrhythmias. Spoke to patient and mother at length regarding diagnosis and most likely course of illness. He understands to avoid moderate to heavy exertion over the next 2-3 months until repeat cardiac MRI can be performed due to risk of arrythmia/SCD and worsening of inflammation with exercise. In addition will start metoprolol succinate 50 mg daily for 4 days, and increase to 100 mg if tolerated after that to decrease risk of arrhythmia and for potential positive remodeling effects. If enhancement on MRIis resolved, can resume full activity. Alternative would be repeat troponin, echocardiogram, and ETT if not covered by insurance. Recommendations relayed to the primary team. I will see him in clinic in 2-3 months. Joe Talavera MD Print Buyer STAFF ADDENDUM Patient interviewed and examined. Medical record reviewed. I agree with the History of Present Illness Past Medical History Family History, Social History Review of Systems Physical Exam Objective Data Assessment and Plan as detailed by Dr. Talavera, with whom the patient was interviewed, examined, and discussed, with thefollowing additions and/or exceptions. Reviewed the cMRI with Dr. Noble. It confirms the diagnosis of a myocarditis as the explanation for his +TN. The plan as outlined by Dr. Talavera is consistentwith the recommendation for treatment and follow-up. * Plan of Care - Royal Tompkins RN - 05/08/2020 4:42 AM EDT Pt is A/O x 4. SR on tele. No complaints throughout the night. Rested comfortably between care. Cardiac MRI today. * Plan of Care - Joe Talavera MD - 05/07/2020 5:07 PM EDT Echocardiogram reviewed. Patient discussed on rounds. Plan for cardiac MRI with and without gadolinium to confirm suspected myocarditis and to determine EF. Will see the patient following this resultand discuss plan going forward. Joe Talavera MD Print Buyer * Initial Assessments - Otilia Curran RN - 05/06/2020 2:54 PM EDT Office of Care Management Assessment Medical record reviewed. Plan of care and patient status discussed with direct care RN and/or Care Team in multidisciplinary rounds. Screeninyo man with suspected COVID. Initial swab was negative. Second test being obtained at this time. Additional work up to be completed. Discharge needs are dependent upon hospital course, functional status and needs at time of discharge. Do not anticipate any d/c needs at this time. Last COVID test: Collected: 05/06/2020 01:30, Second one collected 05/06 @ 1326 25 y.o. male here with exposure to a known Covid positive patient 12 days ago, multiple patients with symptoms in the last few days presented with acute onset of substernal chest pain, mild subjective shortness of breath, subjective fever/chills, diarrhea, loss of taste over the last 1 to 2 days. Present on Admission: ??? Suspected COVID-19 virus infection Patient Alcides Lo has been admitted to a hospital within the last 30 days. Information known about that admission: He was transferred to [facility] on 05/06/20. Patient receiving hospital care under Inpatient status. Admission order reviewed. Primary Insurance on file: [employer] OOS Secondary Insurance on file:@ Primary care provider on file: Camille Barbour, CONDITIONER TUMBLER OPERATOR [phone] Advance Directive on file and Code Status: No AD on file, Attempt Cardiopulmonary Resuscitation - Inpatient Patient???s Functional Status: Independent Living Situation: Unknown at this time. [address] [facility] [address] Supports: Mother Assessment: Patient with no apparent RNCM/SW needs at this time. No housing, transportation, insurance, resources concerns identified at this time. Supports in place to achieve a safe post-hospital transition. No identified barriers to accessing necessary care and/or follow-up after discharge. Plan: Patient to d/c to home via car when medically ready. strategy lead/Food Safety Specialist will continue to follow patient???s progress and remain available if situation changes for coordination of care, psychosocial support and/or discharge planning. Otilia Curran RN microsoft access developer pager: [phone] * Plan of Care - Arianna Beyer RN - 05/06/2020 6:20 AM EDT OUTCOME EVALUATION NOTE: OUTCOME SUMMARY: Pt admitted from [facility] with high suspicion of COVID. RA, a+ox4, NSR. Elevated trop and trending Q6. Afebrile. PRN tylenol x1 for pain. COVID swab came back negative on admission to [facility], but is unsure if the patient needs to be retested due to high suspicion. ID being further consulted and patient remains on COVID precautions. PLAN MOVING FORWARD: Retest COVID if necessary * Consult Note - Ramesh Huertas MD - 05/06/2020 6:12 AM EDT Inpatient Cardiology - Initial Consultation Date of Consultation: 05/06/2020 Admit Date: 05/06/2020 Patient Location: [address] [place] [address] Attending Freight Service Inspector: Dr. Ramos Reason for Consult: We are seeing Alcides Lo at the request of Dl Sullivan MD of the Hospital Medicine service for the evaluation of possible myocarditis. I have reviewed the available records and interviewed the patient. HPI: Mr. Lo is a 25M with no medical history who presented to [facility] with 2 days of URI symptoms in setting of recent covid exposure. Cardiology consulted for concern for myocarditis in setting of tropinemia. Interview conducted over the phone in front of patient room in order to limit exposure to possible covid. 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 He notes that about 1 week prior to this, he had been exposed to a symptomatic co-worker who later tested positive for covid. Over the past 2 days, hedeveloped a decrease sense of taste, a sore throat, and sharp chest pain that was more or less persi stent. Notes that there is a positional component to the chest pain but no obvious improvement whenhe sat up or lay down. Denies any prior cardiac history. 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 He does not run much but is able to do aerobic exercise for 30 minutes at a time without having any symptoms. He is not currently on any medications. No family history of cardiac disease. Medical hx - none Surgical hx - wrist surgery Social hx - Lives with a room mate in [place], [place]. Current smoker (only smokes 1-2 cigarettes per month), social EtOH, smokes marijuana occasionally. Family hx - no cardiac history or h/o sudden Review of Systems: 10 point review of systems completed, pertinent findings are noted in the HPI. Vitals: Last value Range last 24 hrs Temperature Temp: 36.6 ??C (97.9 ??F) Temp: [36.6 ??C (97.9 ??F)-36.9 ??C (98.4 ??F)] Heart Rate Heart Rate: 73 Heart Rate: [64-80] Blood Pressure BP: 114/74 BP: (108-139)/(60-91) Respiratory Rate Resp: 15 Resp: [15-21] SpO2 SpO2: 100 % SpO2: [98 %-100 %] Examination: Exam deferred Interview conducted over the phone in front of patient room in order to limit exposure to possible covid. Labs: CBC: Recent Labs 05/06/20141 WBC 9.0 HGB 13.8 PLATELET 210 Chemistry: Recent Labs 05/06/20141 NA 139 K 3.5 CL 103 CO2 24 BUN 15 CREATININE 0.97 GLUCOSE 90 Recent Labs 05/06/20141 CALCIUM 8.9 MAGNESIUM 0.89 PHOS 3.2 LFT's: Recent Labs 05/06/20141 BILITOT 0.8 BILIDIR 0.3 ALBUMIN 4.3 ALKPHOS 87 ALT 19 AST 43* Coags: Recent Labs 10/25/20 0142 PT 14.6* INR 1.3 PTT 25 DDIMER 529* Cardiac enzymes: Recent Labs 05/06/20 0142 TROPONINT 0.52* CK 438* CRP 104 ESR 28 Echocardiogram: Pending EKG: NSR no e/o ST / T wave changes CTPA without e/o PE at [facility] Assessment: Mr. Lo is a 25M with no medical history who presented to [facility] with 2 days of URI symptoms in setting of recent covid exposure. Cardiology consulted for concern for myocarditis in setting of tropinemia. Based on presentation, symptomatology, and cardiac enzyme elevation (trop 0.52), there is a high suspicion for myocarditis - high likelihood of a viral myocarditis, covid in particular, given recent exposure. Patient has the classic symptomatology and lab work of a covid infection including elevated inflammatory markers, D dimer, and transaminases. He is currently hemodynamically stable, not tachycardic, on room air and saturating 100%. EKG is grossly within normal. There is low suspicion for ACS at this time given lack of risk factors, normal appearing EKG, and atypical history. Recommendations: - Please obtain an echocardiogram to further evaluate cardiac morphology and assess for wall motionabnormalities - Please trend troponins q6h - Obtain a lipid panel and A1c for risk stratification - Recommend to send a respiratory viral panel to rule out other etiologies of possible viral infection Case will be discussed with Dr. Ramos x Consult service will continue to follow patient. Recommendations are above, please page if further consultation required. Ramesh Huertas MD 05/06/2020 Pager #[phone] Associated attestation - Rg Ramos MD - 05/06/2020 11:23 AM EDT Cardiology Attending Note I interviewed and examined the patient during comprehensive bedside rounds. I concur with the summary of interval events, active hospital-focused problem list and plan of care as described in the note below. I personally reviewed the medications, laboratory results, treatment decisions and updated the patient. Likely a viral myocarditis (awaiting COVID testing) given symptomology. Doubt plaque rupture ACS event. Agree with echocardiogram. He will eventually need a cardiac MRI. He should be counseled about precautions to take and how to return safely to his usual exercise routine. This may involve an eventual outpatient stress test. Rg Ramos MD, FACC Section of Cardiovascular Medicine [facility] Information Coderdiagnostic medical sonographer [facility] documented in this encounter Plan of Treatment Scheduled Referrals Name Type Priority Associated Diagnoses Order Schedule Referral to Cardiology Outpatient Referral Routine Elevated troponin Acute viral myocarditis Enteroviral infection Rhinovirus Ordered: 05/08/2020 documented as of this encounter Procedures Procedure Name Priority Date/Time Associated Diagnosis Comments MRI CARDIAC MORPHOLOGY FUNCTION WWO CONTRAST Routine 05/08/2020 1:58 PM EDT ECHO COMPLETE W CONTRAST Routine 05/07/2020 11:06 AM EDT Elevated troponin HEMOGRAM Routine 05/07/2020 4:12 AM EDT DIFFERENTIAL, AUTOMATED Routine 05/07/20 20 4:12 AM EDT HC CBC,PLT & AUTO DIFF Routine 0 4:12 AM EDT HC TROPONIN T STAT 05/07/2020 4:12 AM EDT HC CREATINE PHOSPHOKINASE, SERUM Routine 05/07/2020 4:12 AM EDT BASIC METABOLIC PANEL Routine 05/07/2020 4:12 AM EDT HC BLOOD CULTURE- STAT 05/06/2020 8:5 0 PM EDT HC TROPONIN T STAT 05/06/2020 8:50 PM EDT HC TROPONIN T STAT 05/06/2020 1:30 PM EDT RAPID COVID-19 PCR ([facility]) Routine 05/06/2020 1:26 PM EDT HC RESPIRATORY VIRUS PANEL BY PCR Routine 05/06/2020 1:26 PM EDT HC BLOOD CULTURE- STAT 05/06/2020 2:1 8 AM EDT EKG 12-LEAD Routine 05/06/2020 1:46 AM EDT Elevated troponin HC C-REACTIVE PROTEIN Routine 05/06/2020 1:42 AM EDT HEMOGRAM Routine 05/06/2020 1:42 AM EDT DIFFERENTIAL, AUTOMATED Routine 05/06/20 20 1:42 AM EDT HC D-DIMER, QUANTITATIVE Routine 05/06/2020 1:42 AM EDT HC PARTIAL THROMBOPLASTIN TIME Routine 05/06/2020 1:42 AM EDT HC ESR-SEDIMENTATION RATE, BLOOD Routine 05/06/2020 1:42 AM EDT HC PROTHROMBIN TIME Routine 05/06/2020 1 :42 AM EDT HC CBC,PLT & AUTO DIFF Routine 0 1:42 AM EDT TROPONIN Routine 05/06/2020 1:42 AM EDT HC PHOSPHORUS, SERUM Routine 05/06/2020 1:42 AM EDT HC MAGNESIUM, SERUM Routine 05/06/2020 1 :42 AM EDT LDL CHOLESTEROL, DIRECT Routine 05/06/20 20 1:42 AM EDT HDL/CHOL PROFILE Routine 05/06/2020 1:42 AM EDT HEMOGLOBIN A1C Routine 05/06/2020 1:42 AM EDT HC FERRITIN, SERUM Routine 05/06/2020 1: 42 AM EDT CK Routine 05/06/2020 1:42 AM EDT HEPATIC FUNCTION PANEL Routine 0 1:42 AM EDT BASIC METABOLIC PANEL Routine 05/06/2020 1:42 AM EDT RAPID COVID-19 PCR ([facility]) Routine 05/06/2020 1:30 AM EDT documented in this encounter Results * MRI Cardiac Morphology Function wwo Contrast (05/08/2020 1:58 PM EDT) Anatomical Region Laterality Modality Magnetic Resonan ce Impressions 05/08/2020 3:07 PM EDT 1. ??Mildly reduced left ventricular function quantitated at 52% 2. ??Normal right ventricular size and function 3. ??Patchy epicardial enhancement consistent with the diagnosis of myocarditis Thank you for letting us participate in the care of this patient. For questions regarding this report, please contact the number below. ? Electronically signed by: Mathieu Noble MD, [facility] ([phone]), at 05/08/2020 3:07 PM Narrative 05/08/2020 3:07 PM EDT EXAMINATION: MRI CARDIAC MORPHOLOGY FUNCTION WWO CONTRAST CLINICAL HISTORY: Viral myocarditis COMPARISON: None TECHNIQUE: Cardiac MRI with and without IV contrast IV CONTRAST: 56 mL Dotarem Quantification: ?? LEFT VENTRICLE: End-diastolic volume 232 mL End-systolic volume 111 mL Stroke volume 121 mL Ejection fraction 52% End-diastolic volume index 84 mL/sq m Short axis end-diastolic width 5.7 cm Short axis septal thickness 0.9 cm Short axis inferolateral wall thickness 0.9 cm RIGHT VENTRICLE: End-diastolic volume 243 mL End-systolic volume 118 mL Stroke volume 124 mL Ejection fraction 51% End-diastolic volume index 88 mL/sq m Chambers: At rest, the left ventricle is normal in size with mildly reduced function. Quantitated left ventricular ejection fraction is 52%. There are no regional wall motion abnormalities present. Wall thickness is normal. The right ventricle is normal in size and function. Quantitated right ventricular ejection fraction is 51%. There are no right ventricular regional wall motion abnormalities present. The left atrium is normal in size. The right atrium is normal in size. Interventricular and interatrial septum are intact. The aortic root is normal in size. There is a small pericardial effusion. Valves: Mitral valve: Normal in structure and function with trace regurgitation and no stenosis present. Aortic valve: Trileaflet. Normal in structure and function with no regurgitation. There is no aortic valve stenosis present. Tricuspid valve: Normal in structure and function with trace tricuspid regurgitation and no stenosis present. Pulmonic valve: Not visualized on today's study. Resting perfusion: Resting perfusion was performed in both long and short axis planes. There were no resting perfusion defects to suggest previous infarct or resting myocardial ischemia. TI Steersman: TI Steersman demonstrates normal nulling patterns. Delayed enhancement: Delayed enhancement was performed in both long and short axis planes. Patchy epicardial hyperenhancement is present in the inferior wall, basilar and distal anterior wall, and basilar lateral wall. These findings are consistent with the diagnosis of myocarditis. Extracardiac: Extracardiac imaging performed for the purposes of cardiac planning only. The aorta is normal in course and caliber. There is no significant pericardial effusion present. Procedure Note Mathieu Noble MD - 05/08/2020 EXAMINATION: MRI CARDIAC MORPHOLOGY FUNCTION WWO CONTRAST CLINICAL HISTORY: Viral myocarditis COMPARISON: None TECHNIQUE: Cardiac MRI with and without IV contrast IV CONTRAST: 56 mL Dotarem Quantification: LEFT VENTRICLE: End-diastolic volume 232 mL End-systolic volume 111 mL Stroke volume 121 mL Ejection fraction 52% End-diastolic volume index 84 mL/sq m Short axis end-diastolic width 5.7 cm Short axis septal thickness 0.9 cm Short axis inferolateral wall thickness 0.9 cm RIGHT VENTRICLE: End-diastolic volume 243 mL End-systolic volume 118 mL Stroke volume 124 mL Ejection fraction 51% End-diastolic volume index 88 mL/sq m Chambers: At rest, the left ventricle is normal in size with mildly reducedfunction. Quantitated left ventricular ejection fraction is 52%. There are noregional wall motion abnormalities present. Wall thickness is normal. The rightventricle is normal in size and function. Quantitated right ventricular ejectionfraction is 51%. There are no right ventricular regional wall motionabnormalities present. The left atrium is normal in size. The right atrium is normal insize. Interventricular and interatrial septum are intact. The aortic root isnormal in size. There is a small pericardial effusion. Valves: Mitral valve: Normal in structure and function with trace regurgitationand no stenosis present. Aortic valve: Trileaflet. Normal in structure and function with no regurgitation. There is no aortic valve stenosis present. Tricuspid valve: Normal in structure and function with trace tricuspid regurgitation and no stenosis present. Pulmonic valve: Not visualized on today's study. Resting perfusion: Resting perfusion was performed in both long and short axis planes. Therewere no resting perfusion defects to suggest previous infarct or restingmyocardial ischemia. TI Steersman: TI Steersman demonstrates normal nulling patterns. Delayed enhancement: Delayed enhancement was performed in both long and short axis planes.Patchy epicardial hyperenhancement is present in the inferior wall, basilar anddistal anterior wall, and basilar lateral wall. These findings are consistentwith the diagnosis of myocarditis. Extracardiac: Extracardiac imaging performed for the purposes of cardiac planning only.The aorta is normal in course and caliber. There is no significantpericardial effusion present. IMPRESSION 1. Mildly reduced left ventricular function quantitated at 52% 2. Normal right ventricular size and function 3. Patchy epicardial enhancement consistent with the diagnosis ofmyocarditis Thank you for letting us participate in the care of this patient. Forquestions regarding this report, please contact the number below. Electronically signed by: Mathieu Noble MD, [facility]([phone]), at 05/08/2020 3:07 PM Jose Herrera MD [facility] MRI ORDERABLES * ECHO COMPLETE W CONTRAST (05/07/2020 11:06 AM EDT) EF 60 HEARTLAB SYSTEM Anatomical Region Laterality Modality Other 05/07/2020 Narrative 05/07/2020 11:32 AM EDT Procedure: ?Transthoracic Echocardiogram Patient: ?CAMBER ALCIDES ?(Age): 1995(25y) Med Rec#: ? [id number] ?Sex: ?M ? Site Loc: ? [facility] ?Ht / Wt: ??191(cm)/147(kg) Pt. Loc: ?Adult Floor ? BSA: ?2.7 Study Date: ?? 05/07/2020 ?Pt. Type: Inpatient Tape: ? Referring: HERBERT CORTÉS R Reading: Selvin Harding ([id number]) Rental Representative: Ti Arambula RDCS Diagnosis: *Other specified abnormalities of plasma proteins (R77.8) BP: ? 119/80 SUMMARY: 1. The left ventricular chamber size is normal. ??There is normal global left ventricular systolic function. ??The quantitative left ventricular ejection fraction by biplane Rodríguez's method is 60% with mild hypokinesis at the apical segments as coded below. 2. The right ventricle is probably normal in size. ??Right ventricular global systolic function is low normal with hypokinesis at the RV apex. 3. Other details as noted below. 4. IMPRESSION: Technically difficult study. ??Intravenous echo contrast was administered to enhance endocardial border definition. ??Subtle hypokinesis at the apex - consider viral myocarditis, stress-induced cardiomyopathy, or other. ??Consider further evaluation with a cardiac MRI if clinically indicated. ?? Findings ? : Study Quality: ? Adequate Left Ventricle: ? The left ventricular chamber size is normal. ?Mild concentric left ventricular hypertrophy is observed. ?There is no evidence of LVOT obstruction. ?No ventricular septal defect is visualized. ?There is normal global left ventricular systolic function. ?The visually estimated left ventricular ejection fraction is 55%. ?The quantitative left ventricular ejection fraction by biplane Rodríguez's method is 60%. ?There are left ventricular segmental wall motion abnormalities present, as shown in the diagram below. ?Left ventricular diastolic function is normal. ?Doppler assessment is consistent with normal left sided filling pressure. ?The ??apical septal, apical anterior, apical lateral, and ??apical inferior wall segments are hypokinetic (score 2). ?Overall wallmotion score index is ??1.25 Left Atrium: ? The left atrium is normal in size.22.3 ml/m2 Right Ventricle: ? The right ventricle is probably normal in size. ?Right ventricular global systolic function is low normal. ?The estimated pulmonary artery systolic pressure is 19 mmHg. ?The estimated right atrial pressure is 3 mmHg. Right Atrium: ? The right atrium is mildly dilated. Aortic Valve: ? The aortic valve is trileaflet. The leaflets are thin with normal excursion. There is no aortic stenosis or regurgitation present. Mitral Valve: ? The mitral valve appears normal in structure and function. ?There is trace mitral regurgitation present. Tricuspid Valve: ? The tricuspid valve appears normal in structure and function. ?There is trace tricuspid regurgitation present. Pulmonic Valve: ? The pulmonic valve appears normal in structure and function. ?There is trace pulmonic regurgitation present. Pericardium: ? The pericardium appears normal and there is no evidence of a pericardial effusion. Aorta: ? The aortic root is normal in size. ?The ascending aorta is normal in size. Pulmonary Artery: ? The main pulmonary artery appears normal. Venous: ? The inferior vena cava appears dilated. ?There is a greater than 50% respiratory change in the inferior vena cava dimension. Misc: ? Two-dimensional echo, spectral Doppler and color Doppler performed. ?Optison contrast (one 3 ml vial) was used to enhance endocardial definition. Excess contrast was discarded. Chambers 2D ?Value ?Units (Range) ? IVSd (2D) ? 1.4 ?cm ? LVPWd (2D) ?1.4 ?cm ? IVS:LVPW ratio (2D) 1 ?ratio ? RWT (2D) ?0.53 ? ratio ? RWT PW (2D) ? 0.53 ? ratio ? LVIDd (2D) ?5.3 ?cm ? LVIDs (2D) ?3.3 ?cm ? LVIDd (2D) index ?1.96 ? cm/m2 ? LVIDs (2D) index ?1.22 ? cm/m2 ? LV FS (2D) ?37.74 ?% ? EF Teichholz (2D) ?? 67.39 ?% ? Ao root diameter (2D3.2 ?cm (2.1 - 3.6) ? Ascending Ao ?2.8 ?cm (2 - 3.5) ? Volumes/Mass ?Value ?Units (Range) ? LA Area 4 CH ?22 ? cm2 (<21) ? RA AREA 4CH ? 23 ? cm2 ? LA ESV BP (MOD) inde22.3 ? ml/m2 ? LV ESV SP 4CH (MOD) 76.5 ? ml ? LV ESV SP 2CH (MOD) 79.8 ? ml ? LV EDV BP ? 201 ?ml ? LV ESV BP ? 78.5 ? ml ? LV EDV BP index ? 74.47 ?ml/m2 ? LV ESV BP index ? 29.08 ?ml/m2 ? BP EF (MOD) ? 60.95 ?% ? LV mass (2D) ?318.89 ? g ? LV mass (2D) index ??118.15 ? g/m2 ? Diastolic/Systolic Function ?Value ?Units (Range) ? MV E-wave Vmax ?0.66 ? m/sec ? MV deceleration txmp384 ?msec ? MV A-wave Vmax ?0.49 ? m/sec ? MV E:A ratio ?1.35 ? ratio ? LV septal e' Vmax ?? 0.1 ?m/sec ? LV lateral e' Vmax ??0.12 ? m/sec ? LV average e' Vmax ??0.11 ? m/sec ? LV E:e' septal ratio6.64 ? ratio ? LV E:e' lateral rati5.53 ? ratio ? LV average E:e' rati6.04 ? ratio ? Tricuspid Valve ?Value ?Units (Range) ? TR Vmax ? 2 ?m/sec ? TR peak gradient ?16 ? mmHg ? RAP ? 3 ?mmHg ? RVSP ?19 ? mmHg ? Pulmonic Valve/Qp:Qs ?Value ?Units (Range) ? HI end-diastolic Vma1.19 ? m/sec ? PA end-diastolic pre8.66 ? mmHg ? Wall Motion: Segment Name ?Rest ? Base-Anteroseptal ?? Normal ? Base-Anterior ? Normal ? Base-Anterolateral ??Normal ? Base-Posterolateral Normal ? Base-Inferior ? Normal ? Base-Inferoseptal ?? Normal ? Mid-Anteroseptal ?Normal ? Mid-Anterior ?Normal ? Mid-Anterolateral ?? Normal ? Mid-Posterolateral ??Normal ? Mid-Inferior ?Normal ? Mid-Inferoseptal ?Normal ? [place]-Septal ? Hypokinetic ? [place]-Anterior ? Hypokinetic ? [place]-Lateral ?Hypokinetic ? [place]-Inferior ? Hypokinetic ? [place]-Tip ?Hypokinetic ? This report has been electronically signed by: Selvin Harding MD ? 05/07/2020 11:32:07 Images reviewed and interpretation verified [facility] Cardiac Ultrasound Laboratory Procedure Note Selvin Harding MD - 05/07/2020 Procedure: Transthoracic Echocardiogram Patient: RIVERA ROLAND DOB(Age): 1995(25y) Med Rec#: [id number] Sex: M Site Loc: [facility] [place] Ht / Wt: 191(cm)/147(kg) Pt. Loc: Adult Floor BSA: 2.7 Study Date: 05/07/2020 Pt. Type: Inpatient Tape: Referring: HERBERT CORTÉS R Reading: Selvin Harding ([id number]) Rental Representative: Ti Arambula [facility] Diagnosis: *Other specified abnormalities of plasma proteins (R77.8) BP: 119/80 SUMMARY: 1. The left ventricular chamber size is normal. There is normal global left ventricular systolic function. The quantitative left ventricular ejection fraction by biplane Rodríguez's method is 60% with mild hypokinesis at the apical segments as coded below. 2. The right ventricle is probably normal in size. Right ventricular global systolic function is low normal with hypokinesis at the RV apex. 3. Other details as noted below. 4. IMPRESSION: Technically difficult study. Intravenous echo contrast was administered to enhance endocardial border definition. Subtle hypokinesis at the apex - consider viral myocarditis, stress-induced cardiomyopathy, or other. Consider further evaluation with a cardiac MRI if clinically indicated. Findings : Study Quality: Adequate Left Ventricle: The left ventricular chamber size is normal. Mild concentric left ventricular hypertrophy is observed. There is no evidence of LVOT obstruction. No ventricular septal defect is visualized. There is normal global left ventricular systolic function. The visually estimated left ventricular ejection fraction is 55%. The quantitative left ventricular ejection fraction by biplane Rodríguez's method is 60%. There are left ventricular segmental wall motion abnormalities present, as shown in the diagram below. Left ventricular diastolic function is normal. Doppler assessment is consistent with normal left sided filling pressure. The apical septal, apical anterior, apical lateral, and apical inferior wall segments are hypokinetic (score 2). Overall wallmotion score index is 1.25 Left Atrium: The left atrium is normal in size.22.3 ml/m2 Right Ventricle: The right ventricle is probably normal in size. Right ventricular global systolic function is low normal. The estimated pulmonary artery systolic pressure is 19 mmHg. The estimated right atrial pressure is 3 mmHg. Right Atrium: The right atrium is mildly dilated. Aortic Valve: The aortic valve is trileaflet. The leaflets are thin with normal excursion. There is no aortic stenosis or regurgitation present. Mitral Valve: The mitral valve appears normal in structure and function. There is trace mitral regurgitation present. Tricuspid Valve: The tricuspid valve appears normal in structure and function. There is trace tricuspid regurgitation present. Pulmonic Valve: The pulmonic valve appears normal in structure and function. There is trace pulmonic regurgitation present. Pericardium: The pericardium appears normal and there is no evidence of a pericardial effusion. Aorta: The aortic root is normal in size. The ascending aorta is normal in size. Pulmonary Artery: The main pulmonary artery appears normal. Venous: The inferior vena cava appears dilated. There is a greater than 50% respiratory change in the inferior vena cava dimension. Misc: Two-dimensional echo, spectral Doppler and color Doppler performed. Optison contrast (one 3 ml vial) was used to enhance endocardial definition. Excess contrast was discarded. Chambers 2D Value Units (Range) IVSd (2D) 1.4 cm LVPWd (2D) 1.4 cm IVS:LVPW ratio (2D) 1 ratio RWT (2D) 0.53 ratio RWT PW (2D) 0.53 ratio LVIDd (2D) 5.3 cm LVIDs (2D) 3.3 cm LVIDd (2D) index 1.96 cm/m2 LVIDs (2D) index 1.22 cm/m2 LV FS (2D) 37.74 % EF Teichholz (2D) 67.39 % Ao root diameter (2D3.2 cm (2.1 - 3.6) Ascending Ao 2.8 cm (2 - 3.5) Volumes/Mass Value Units (Range) LA Area 4 CH 22 cm2 (<21) RA AREA 4CH 23 cm2 LA ESV BP (MOD) inde22.3 ml/m2 LV ESV SP 4CH (MOD) 76.5 ml LV ESV SP 2CH (MOD) 79.8 ml LV EDV BP 201 ml LV ESV BP 78.5 ml LV EDV BP index 74.47 ml/m2 LV ESV BP index 29.08 ml/m2 BP EF (MOD) 60.95 % LV mass (2D) 318.89 g LV mass (2D) index 118.15 g/m2 Diastolic/Systolic Function Value Units (Range) MV E-wave Vmax 0.66 m/sec MV deceleration isog671 msec MV A-wave Vmax 0.49 m/sec MV E:A ratio 1.35 ratio LV septal e' Vmax 0.1 m/sec LV lateral e' Vmax 0.12 m/sec LV average e' Vmax 0.11 m/sec LV E:e' septal ratio6.64 ratio LV E:e' lateral rati5.53 ratio LV average E:e' rati6.04 ratio Tricuspid Valve Value Units (Range) TR Vmax 2 m/sec TR peak gradient 16 mmHg RAP 3 mmHg RVSP 19 mmHg Pulmonic Valve/Qp:Qs Value Units (Range) HI end-diastolic Vma1.19 m/sec PA end-diastolic pre8.66 mmHg Wall Motion: Segment Name Rest Base-Anteroseptal Normal Base-Anterior Normal Base-Anterolateral Normal Base-Posterolateral Normal Base-Inferior Normal Base-Inferoseptal Normal Mid-Anteroseptal Normal Mid-Anterior Normal Mid-Anterolateral Normal Mid-Posterolateral Normal Mid-Inferior Normal Mid-Inferoseptal Normal [place]-Septal Hypokinetic [place]-Anterior Hypokinetic [place]-Lateral Hypokinetic [place]-Inferior Hypokinetic [place]-Tip Hypokinetic This report has been electronically signed by: Selvin Harding MD 05/07/2020 11:32:07 Images reviewed and interpretation verified [facility] Cardiac Ultrasound Laboratory Dl Sullivan MD ECHO ORDERABLES * Differential, Automated (05/07/2020 4:12 AM EDT) Neutrophil % 49.8 % [facility] Neutrophil Absolute 3.54 1.70 - 6.10 x10(3)/[facility] LABORATORY Lymph % 33.2 % [facility] Lymphocytes Abs 2.4 0.9 - 3.2 x10(3)/[facility] LABORATORY Monocyte % 12.1 % [facility] Monocyte Abs 0.9 0.3 - 0.9 x10(3)/[facility] LABORATORY Eos % 4.1 % [facility] Eosinophils Abs 0.3 0.0 - 0.4 x10(3)/[facility] LABORATORY Basophil % 0.7 % [facility] Baso Absolute 0.0 0.0 - 0.1 x10(3)/[facility] LABORATORY Immature Gran % 0.10 % [facility] Comment: Immature granulocytes(IG's)percentage and absolute count will include metamyelocytes, myelocytes, and promyelocytes. Blood smears from CBCs yielding IG's will be scanned manually for concordance. If this scan disagrees with the automated IG or if promyelocytes are noted, a manual differential will be performed. Immature Gran Absolute 0.01 0.00 - 0.04 x10(3)/[facility] LABORATORY Blood specimen (specimen) 05/07/2020 4:12 AM EDT 05/07/2020 4:40 AM EDT Narrative Resulting Agency Comment Spec In Lab Jose Herrera MD HEMATOLOGY ORDERABLE S [facility] [place] [address] * (ABNORMAL) Hemogram (05/07/2020 4:12 AM EDT) White Blood Cell 7.1 4.0 - 9.5 x10(3)/[facility] LABORATORY Red Blood Cell 4.81 4.58 - 5.54 x10(6)/[facility] LABORATORY Hemoglobin 13.4(L) 13.7 - 16.5 gm/dL [facility] Hematocrit 39.5(L) 40.5 - 48.5 % [facility] Mean Cell Volume 82.1(L) 82.9 - 93.1 [facility] LABORATORY Mean Cell Hemoglobin 27.9 27.5 - 32.1 pg [facility] Mean Cell Hemoglobin Concentration 33.9 32.0 - 35.7 gm/dL [facility] Platelet 224 145 - 357 x10(3)/[facility] LABORATORY RDW Standard Deviation 37.3 36.0 - 45.0 [facility] LABORATORY RDW coefficient of variation 12.3 11.4 - 13.8 % [facility] Mean Platelet Volume 8.7 7.6 - 12.9 [facility] LABORATORY NRBC% auto 0.0 % [facility] NRBC Absolute 0.000 0.000 - 0.000 x10(3)/[facility] LABORATORY Blood specimen (specimen) 05/07/2020 4:12 AM EDT 05/07/2020 4:40 AM EDT Narrative Resulting Agency Comment Spec In Lab Jose Herrera MD HEMATOLOGY ORDERABLE S Performing Organization Address City/[facility] Co de Phone Number [facility] [place] [address] * (ABNORMAL) CK (05/07/2020 4:12 AM EDT) Creatine Kinase 328(H) 0 - 200 unit/L [facility] Blood specimen (specimen) 05/07/2020 4:12 AM EDT 05/07/2020 4:40 AM EDT Narrative Resulting Agency Comment Spec In Lab Jose Herrera MD CHEMISTRY ORDERABLES Performing Organization Address [facility] Co de Phone Number [facility] [place] [address] * (ABNORMAL) Troponin (05/07/2020 4:12 AM EDT) Troponin-T 0.54(H) 0.00 - 0.00 ng/mL [facility] Comment: The 99th percentile for Troponin T is less than 0.01 ng/mL, any detectable cTnT concentration using this assay should be considered elevated. According to the third universal definition of myocardial infarction the following criteria with a clinical presentation consistent with acute myocardial ischemia meets the diagnosis for a myocardial infarction (CO). Detection of a rise and/or fall of cTnT, with at least one value greater than the 99th percentile (> or = 0.01) and with at least one of the following ?? Symptoms of ischemia ?? New or presumed new significant AN-gbxphxf-Z wave (ST-T) changes or new left bundle branch block (LBBB) ?? Development of pathologic Q waves in the ECG ?? Imaging evidence of new loss of viable myocardium or new regional wall motion abnormality ?? Identification of an intracoronary thrombus by angiography or autopsy Samples for cTnT testing should be obtained serially upon first assessment and again 3 to 6 hours later. If the clinical suspicion is high and previous samples have been negative an additional sample may be indicated. Reference: Third [place]wood Definition of Myocardial Infarction. Journal of the [place] [employer] 2012;60:1581-98 Blood specimen (specimen) 05/07/2020 4:12 AM EDT 05/07/2020 4:40 AM EDT Narrative Resulting Agency Comment Spec In Lab Jose Herrera MD CHEMISTRY ORDERABLES [facility] [place] [address] * Basic Metabolic Panel (non-fasting) (05/07/2020 4:12 AM EDT) Glucose 87 65 - 199 mg/dL [facility] Comment:Diabetes: >=200 mg/d L plus symptoms Blood Urea Nitrogen 14 10 - 20 mg/dL [facility] Creatinine 0.97 0.80 - 1.50 mg/dL [facility] Sodium 141 135 - 145 mmol/L [facility] Potassium 4.0 3.5 - 5.0 mmol/L [facility] Comment: Please note: ??Patients with WBC >100,000 may have falsely elevated Potassium levels. ??For accurate Potassium quantification in these patients send serum separator tube (gold top) for subsequent determinations. ??Contact the Clinical Chemistry Laboratory if there are any questions. Chloride 106 98 - 107 mmol/L [facility] Carbon Dioxide 25 22 - 31 mmol/L [facility] Anion Gap 10 5 - 15 mmol/L [facility] Calcium 8.9 8.5 - 10.5 mg/dL [facility] Est Glomerular Filtration Rate 109 >=60 mL/min/1. 73 m?? [facility] Comment: The eGFR was calculated using the CKD-EPI equation. As with all creatinine based estimates of kidney function, eGFR values calculated with the CKD-EPI equation are not accurate in patients with acute kidney failure, extremes of body mass or the acutely ill. http://[employer] Data/DHnkf eGFR 126 >=60 mL/min/1. 73 m?? [facility] Comment: The eGFR was calculated using the CKD-EPI equation. As with all creatinine based estimates of kidney function, eGFR values calculated with the CKD-EPI equation are not accurate in patients with acute kidney failure, extremes of body mass or the acutely ill. [email or web address] [email or web address] Blood specimen (specimen) 05/07/2020 4:12 AM EDT 05/07/2020 4:40 AM EDT Narrative Resulting Agency Comment Spec In Lab Jose Herrera MD CHEMISTRY ORDERABLES [facility] [place] [address] * (ABNORMAL) Troponin (05/06/2020 8:50 PM EDT) Troponin-T 0.54(H) 0.00 - 0.00 ng/mL [facility] Comment: The 99th percentile for Troponin T is less than 0.01 ng/mL, any detectable cTnT concentration using this assay should be considered elevated. According to the third universal definition of myocardial infarction the following criteria with a clinical presentation consistent with acute myocardial ischemia meets the diagnosis for a myocardial infarction (CO). Detection of a rise and/or fall of cTnT, with at least one value greater than the 99th percentile (> or = 0.01) and with at least one of the following ?? Symptoms of ischemia ?? New or presumed new significant DP-imepxwd-Y wave (ST-T) changes or new left bundle branch block (LBBB) ?? Development of pathologic Q waves in the ECG ?? Imaging evidence of new loss of viable myocardium or new regional wall motion abnormality ?? Identification of an intracoronary thrombus by angiography or autopsy Samples for cTnT testing should be obtained serially upon first assessment and again 3 to 6 hours later. If the clinical suspicion is high and previous samples have been negative an additional sample may be indicated. Reference: Third Underwood Definition of Myocardial Infarction. Journal of the [place] [employer] 2012;60:1581-98 Blood specimen (specimen) 05/06/2020 8:50 PM EDT 05/06/2020 9:06 PM EDT Narrative Resulting Agency Comment Spec In Lab Dl Sullivan MD CHEMISTRY ORDERABLES Performing Organization Address City/[facility]/ZIP Co de Phone Number [facility] [place] [address] * Blood culture (05/06/2020 8:50 PM EDT) Blood Culture No growth at 5 days. [facility] Blood specimen (specimen) 05/06/2020 8:50 PM EDT 05/06/2020 10:25 PM EDT Comment:L AC Narrative Resulting Agency Comment Spec In Lab Dl Sullivan MD MICROBIOLOGY - BLOOD ORDERABLES Performing Organization Address [facility] Co de Phone Number [facility] [place] [address] * (ABNORMAL) Troponin (05/06/2020 1:30 PM EDT) [facility] Troponin-T 0.50(H) 0.00 - 0.00 ng/mL [facility] Comment: The 99th percentile for Troponin T is less than 0.01 ng/mL, any detectable cTnT concentration using this assay should be considered elevated. According to the third universal definition of myocardial infarction the following criteria with a clinical presentation consistent with acute myocardial ischemia meets the diagnosis for a myocardial infarction (CO). Detection of a rise and/or fall of cTnT, with at least one value greater than the 99th percentile (> or = 0.01) and with at least one of the following ?? Symptoms of ischemia ?? New or presumed new significant VT-whrojsm-I wave (ST-T) changes or new left bundle branch block (LBBB) ?? Development of pathologic Q waves in the ECG ?? Imaging evidence of new loss of viable myocardium or new regional wall motion abnormality ?? Identification of an intracoronary thrombus by angiography or autopsy Samples for cTnT testing should be obtained serially upon first assessment and again 3 to 6 hours later. If the clinical suspicion is high and previous samples have been negative an additional sample may be indicated. Reference: Third Underwood Definition of Myocardial Infarction. Journal of the [place] [employer] 2012;60:1581-98 Blood specimen (specimen) 05/06/2020 1:30 PM EDT 05/06/2020 2:09 PM EDT Narrative Resulting Agency Comment Spec In Lab Dl Sullivan MD CHEMISTRY ORDERABLES [facility] [place] [address] * COVID-19 PCR (05/06/2020 1:26 PM EDT) SARS-CoV-2 RNA (Rapid) Not Detected Not Detected [facility] Comment: This result should be interpreted in combination with the clinical observations, patient history and epidemiological information. For testing of asymptomatic individuals, assay performance characteristics and clinical utility have not been evaluated. Testing for SARS-CoV-2 (Severe acute respiratory syndrome coronavirus 2, formerly known as 2019 novel coronavirus or 2019-nCoV) to aid in the diagnosis of COVID-19 is performed using the Simplexa COVID-19 Direct Assay by [employer] as authorized by the FDA issued Emergency Use Authorization (EUA). This assay is intended for In-vitro Diagnostic (IVD) use with nasopharyngeal swabs collected from individuals meeting the CDC criteria for testing. The assay is performed based on the instructions for use and additional guidance provided by the FDA. Testing is performed in the Microbiology Laboratory within the Department of Pathology and Laboratory Medicine at [facility], certified under the Clinical Laboratory Improvement Amendments of 1988 (CLIA), 42 U.S.C. section 263a, to perform high complexity tests. Assay performance has been verified according to clinical laboratory regulatory requirements. Test results are provided above. A result of Not Detected indicates that the viral RNA target is not present but does not preclude SARS-CoV-2 infection. False negative results may occur if a specimen is improperly collected, transported or handled; if amplification inhibitors are present; or if inadequate numbers of viral particles are present in the specimen. A result of Detected suggests a current or recent infection and the patient is presumed to be infected. Positive and negative predictive values for this test are highly dependent on disease prevalence. A result of Invalid indicates the inability to conclusively determine the presence or absence of SARS-CoV-2 RNA in the sample which can be due to a variety of factors. Recollection is recommended in the case of an invalid result. CDC COVID-19 criteria for testing on human specimens and clinical management guidance information are available at the CDC Coronavirus Disease 2019 (COVID-19) webpage under Information for Healthcare Professionals (https://www.cdc.gov/coronavirus/2019-ncov/hcp/index.html). SARS-CoV-2 Source [employer] Swab ID [facility] Nasopharyngeal swab (specimen) 05/06/2020 1:26 PM EDT 05/06/2020 2:39 PM EDT Comment:Symptoms->COVID-19 S uspected Narrative Resulting Agency Comment Spec In Lab Dl Sullivan MD MICROBIOLOGY - GENER AL ORDERABLES [facility] [place] [address] * (ABNORMAL) Respiratory Panel PCR (05/06/2020 1:26 PM EDT) Respiratory Panel Source [employer] Swab [facility] Respiratory Panel PCR Positive(A) Negative [facility] Comment: Respiratory Panels are performed on the [employer], using multiplexed PCR nucleic acid detection. ??Negative results do not preclude respiratory infection and should not be used as the sole basis for diagnosis, treatment or other management decisions. Adenovirus Not Detected Not Detected [facility] Coronavirus HKU1 Not Detected Not Detected [facility] Coronavirus NL63 Not Detected Not Detected [facility] Coronavirus 229E Not Detected Not Detected [facility] Coronavirus OC43 Not Detected Not Detected [facility] Human Metapneumovirus Not Detected Not Detected [facility] Human Rhinovirus/Enterov irus Detected(A) Not Detected [facility] Influenza A Not Detected Not Detected [facility] Influenza A H1 Not Detected Not Detected [facility] Influenza A H1-2009 Not Detected Not Detected [facility] Influenza A H3 Not Detected Not Detected [facility] Influenza B Not Detected Not Detected [facility] Parainfluenza 1 Not Detected Not Detected [facility] Parainfluenza 2 Not Detected Not Detected [facility] Parainfluenza 3 Not Detected Not Detected [facility] Parainfluenza 4 Not Detected Not Detected [facility] Respiratory Syncytial Virus Not Detected Not Detected [facility] Chlamydophila pneumoniae Not Detected Not Detected [facility] Mycoplasma pneumoniae Not Detected Not Detected [facility] Nasopharyngeal swab (specimen) 05/06/2020 1:26 PM EDT 05/06/2020 2:39 PM EDT Comment:Per Cardiology recs Narrative Resulting Agency Comment Spec In Lab Jose Herrera MD MICROBIOLOGY - GENER AL ORDERABLES Performing Organization Address [facility]/[place] [address] * Blood culture (05/06/2020 2:18 AM EDT) Blood Culture No growth at 5 days. [facility] Blood specimen (specimen) STRUCTURE OF LEFT HAND / Unknown 05/06/2020 2:18 AM EDT 05/06/2020 3:26 AM EDT Narrative Resulting Agency Comment Spec In Lab Dl Sullivan MD MICROBIOLOGY - BLOOD ORDERABLES Performing Organization Address [facility]/ZIP Co de Phone Number [facility] [place] [address] * EKG 12 Lead (05/06/2020 1:46 AM EDT) Ventricular rate 73 BPM MUSE SYSTEM Atrial Rate 73 BPM MUSE SYSTEM P-R Interval 182 ms MUSE SYSTEM QRS Duration 90 ms MUSE SYSTEM Q-T Interval 368 ms MUSE SYSTEM QTC Calculated (Bezet) 405 ms MUSE SYSTEM Calculated P Stuart 12 degrees MUSE SYSTEM Calculated R Stuart 31 degrees MUSE SYSTEM Calculated T Stuart 20 degrees MUSE SYSTEM INTERPRETATION Normal sinus rhythm Low voltage QRS Nonspecific ST and T wave abnormality Abnormal ECG No previous ECGs available Confirmed by MD Lozano Kevin ([id number]) on 05/07/2020 6:33:36 AM MUSE SYSTEM 05/06/2020 1:46 AM EDT 05/07/2020 6:33 AM EDT Dl Sullivan MD ECG ORDERABLES MUSE SYSTEM * Hemoglobin A1c (05/06/2020 1:42 AM EDT) Hemoglobin A1c 5.0 4.3 - 5.6 % [facility] Comment: Reference Range: 4.3 - 5.6% 5.7 - 6.4% - Increased Risk of Developing Diabetes Mellitus >= 6.5% - Consistent with diagnosis of Diabetes Mellitus In the absence of hyperglycemia (i.e. plasma glucose > 200 mg/dL) or classic symptoms of hyperglycemia a repeat measurement of HbA1c should be performed on a separate sample to confirm the diagnosis. Diagnosis and Classification of Diabetes Mellitus, Diabetes Care 2013; 36: Suppl. 1, S67-02 Estimated Average Glucose 98 mg/dL [facility] Comment: eAG equivalents for HbA1c percentages: HbA1c(%) ?eAG(mg/dL) 6.0 ?126 6.5 ?140 7.0 ?154 7.5 ?169 8.0 ?183 8.5 ?197 9.0 ?212 9.5 ?226 10.0 ? 240 Limitations: The eAG calculation has not been validated on women, individuals below 18 years old and above 70 years old, and individuals with hemoglobinopathies. Additional resources are available on the ADA website. Amol WRIGHT, Doreen J, Treva R, et al. ??Translating the A1C assay into estimated average glucose values. ??Diabetes Care 2008:31(8):0074-8231. Blood specimen (specimen) Venous Draw / Unknown 05/06/2020 1:42 AM EDT 05/06/2020 7:57 AM EDT Narrative Resulting Agency Comment Spec In Lab Jose Herrera MD CHEMISTRY ORDERABLES Performing Organization Address [facility] Co de Phone Number [facility] [place] [address] * LDL Cholesterol, Direct (05/06/2020 1:42 AM EDT) LDL Cholesterol, Direct 87 mg/dL [facility] Comment: Lowest Risk: <100 mg/dL Lower Risk: 100-129 mg/dL Borderline High Risk: 130-159 mg/dL High Risk: 160-189 mg/dL Very High Risk: >eu=925 mg/dL Blood specimen (specimen) Venous Draw / Unknown 05/06/2020 1:42 AM EDT 05/06/2020 2:02 AM EDT Narrative Resulting Agency Comment Spec In Lab Jose Herrera MD CHEMISTRY ORDERABLES Performing Organization Address [facility] Co de Phone Number [facility] [place] [address] * HDL/Cholesterol Profile (05/06/2020 1:42 AM EDT) Cholesterol, Total 137 mg/dL [facility] Comment: Lower Risk: <200 mg/dL Average Risk: 200-239 mg/dL Higher Risk: >zi=192 mg/dL HDL Cholesterol 31 mg/dL [facility] Comment: Males: ?? Higher Risk: <40 mg/dL Females: ?? HIgher Risk: <50 mg/dL Cholesterol/HDL Ratio 4.4 ratio [facility] Chol/HDL Interpretation See Note [facility] Comment: Lipid management should be guided by a patient? s ASCVD risk, goals and preferences. ACC/AHA Guidelines recommend high intensity statin if clinical ASCVD or LDL greater than or equal to 190 mg/dL. http://WEMS.com/JHD-VLU-Rshzhdzlp Measure LDL if Total Cholesterol minus HDL Cholesterol is greater than 220 mg/dL. Adults aged 40-75 with LDL 70-189 mg/dL should have their 10 year ASCVD risk estimated with the ACC/AHA ASCVD risk window shade estimator http://tools.acc.org/REREP-Xcqi-Eghpntjjs/ Statin should be discussed if risk greater than or equal to 7.5% in non-diabetics. With diabetes, moderate intensity statin is recommended if risk less than 7.5%, high intensity if risk greater than or equal to 7.5%. Annual lipid monitoring on statins is not necessary. Lifestyle modification is a critical component of ASCVD risk reduction. Blood specimen (specimen) Venous Draw / Unknown 05/06/2020 1:42 AM EDT 05/06/2020 2:02 AM EDT Narrative Resulting Agency Comment Spec In Lab Jose Herrera MD CHEMISTRY ORDERABLES [facility] [place] [address] * (ABNORMAL) CK (05/06/2020 1:42 AM EDT) Creatine Kinase 438(H) 0 - 200 unit/L [facility] Blood specimen (specimen) Venous Draw / Unknown 05/06/2020 1:42 AM EDT 05/06/2020 2:02 AM EDT Narrative Resulting Agency Comment Spec In Lab Dl Sullivan MD CHEMISTRY ORDERABLES [facility] [place] [address] * (ABNORMAL) Troponin (05/06/2020 1:42 AM EDT) Troponin-T 0.52(H) 0.00 - 0.00 ng/mL [facility] Comment: The 99th percentile for Troponin T is less than 0.01 ng/mL, any detectable cTnT concentration using this assay should be considered elevated. According to the third universal definition of myocardial infarction the following criteria with a clinical presentation consistent with acute myocardial ischemia meets the diagnosis for a myocardial infarction (CO). Detection of a rise and/or fall of cTnT, with at least one value greater than the 99th percentile (> or = 0.01) and with at least one of the following ?? Symptoms of ischemia ?? New or presumed new significant RD-mqulppl-D wave (ST-T) changes or new left bundle branch block (LBBB) ?? Development of pathologic Q waves in the ECG ?? Imaging evidence of new loss of viable myocardium or new regional wall motion abnormality ?? Identification of an intracoronary thrombus by angiography or autopsy Samples for cTnT testing should be obtained serially upon first assessment and again 3 to 6 hours later. If the clinical suspicion is high and previous samples have been negative an additional sample may be indicated. Reference: Third Underwood Definition of Myocardial Infarction. Journal of the [place] [employer] 2012;60:1581-98 Blood specimen (specimen) Venous Draw / Unknown 05/06/2020 1:42 AM EDT 05/06/2020 2:02 AM EDT Narrative Resulting Agency Comment Spec In Lab Dl Sullivan MD CHEMISTRY ORDERABLES [facility] [place] [address] * (ABNORMAL) Differential, Automated (05/06/2020 1:42 AM EDT) Neutrophil % 55.9 % [facility] Neutrophil Absolute 5.02 1.70 - 6.10 x10(3)/mc L [facility] Lymph % 26.6 % [facility] Lymphocytes Abs 2.4 0.9 - 3.2 x10(3)/mc L [facility] Monocyte % 14.1 % [facility] Monocyte Abs 1.3(H) 0.3 - 0.9 x10(3)/mc L [facility] Eos % 2.6 % [facility] Eosinophils Abs 0.2 0.0 - 0.4 x10(3)/[facility] Basophil % 0.6 % [facility] Baso Absolute 0.0 0.0 - 0.1 x10(3)/[facility] Immature Gran % 0.20 % [facility] Comment: Immature granulocytes(IG's)percentage and absolute count will include metamyelocytes, myelocytes, and promyelocytes. Blood smears from CBCs yielding IG's will be scanned manually for concordance. If this scan disagrees with the automated IG or if promyelocytes are noted, a manual differential will be performed. Immature Gran Absolute 0.02 0.00 - 0.04 x10(3)/[facility] Blood specimen (specimen) 05/06/2020 1:42 AM EDT 05/06/2020 2:00 AM EDT Narrative Resulting Agency Comment Spec In Lab Dl Sullivan MD HEMATOLOGY ORDERABLE S [facility] [place] [address] * (ABNORMAL) Hemogram (05/06/2020 1:42 AM EDT) White Blood Cell 9.0 4.0 - 9.5 x10(3)/ L [facility] Red Blood Cell 5.05 4.58 - 5.54 x10(6)/[facility] Hemoglobin 13.8 13.7 - 16.5 gm/dL [facility] Hematocrit 41.3 40.5 - 48.5 % [facility] Mean Cell Volume 81.8(L) 82.9 - 93.1 fL [facility] Mean Cell Hemoglobin 27.3(L) 27.5 - 32.1 pg [facility] Mean Cell Hemoglobin Concentration 33.4 32.0 - 35.7 gm/dL [facility] Platelet 210 145 - 357 x10(3)/mc L [facility] RDW Standard Deviation 37.7 36.0 - 45.0 [facility] RDW coefficient of variation 12.6 11.4 - 13.8 % [facility] Mean Platelet Volume 8.9 7.6 - 12.9 [facility] NRBC% auto 0.0 % [facility] NRBC Absolute 0.000 0.000 - 0.000 x10(3)/mc L [facility] Blood specimen (specimen) 05/06/2020 1:42 AM EDT 05/06/2020 2:00 AM EDT Narrative Resulting Agency Comment Spec In Lab Dl Sullivan MD HEMATOLOGY ORDERABLE S Performing Organization Address City/[facility]/ZIP Co de Phone Number [facility] [place] [address] * Sedimentation rate (05/06/2020 1:42 AM EDT) Sedimentation Rate Automated 28 2 - 28 mm/hr [facility] Comment: Effective June 22, 2019 new capillary photometric technology has resulted in a change in reference ranges. It is recommended that each ESR result be reviewed with its own age appropriate reference range. Blood specimen (specimen) 05/06/2020 1:42 AM EDT 05/06/2020 2:00 AM EDT Narrative Resulting Agency Comment Spec In Lab Dl Sullivan MD HEMATOLOGY ORDERABLE S Performing Organization Address City/[facility]/ZIP Co de Phone Number [facility] [place] [address] * (ABNORMAL) CRP, acute inflammation (05/06/2020 1:42 AM EDT) C-Reactive Protein 104.0(H) <=4.9 mg/L [facility] Blood specimen (specimen) 05/06/2020 1:42 AM EDT 05/06/2020 2:00 AM EDT Narrative Resulting Agency Comment Spec In Lab Dl Sullivan MD CHEMISTRY ORDERABLES Performing Organization Address City/[facility]/ZIP Co de Phone Number [facility] [place] [address] * Ferritin (05/06/2020 1:42 AM EDT) Pathologist [facility] Ferritin 161 30 - 400 ng/mL [facility] Comment: Pediatric reference ranges not verified at [facility], interpret with caution. Reference ranges for females greater than 50 years of age approach values for men, i.e., 30-400 ng/mL. Blood specimen (specimen) 05/06/2020 1:42 AM EDT 05/06/2020 2:00 AM EDT Narrative Resulting Agency Comment Spec In Lab Dl Sullivan MD CHEMISTRY ORDERABLES Performing Organization Address [facility] Co de Phone Number [facility] [place] [address] * (ABNORMAL) D-Dimer, Quantitative (05/06/2020 1:42 AM EDT) [facility] D-Dimer 529(H) 0 - 500 FEU ng/ml [facility] Comment: The D-Dimer assay is used to aid in the diagnosis of deep vein thrombosis and pulmonary embolism. A normal D-Dimer result (less than 500 FEU ng/ml) has a negative predictive value of approximately 95% for the exclusion of acute PE and DVT when there is low to moderate pretest probability. To use age adjusted cutoff: Age x 10 ng/ml. Blood specimen (specimen) 05/06/2020 1:42 AM EDT 05/06/2020 2:00 AM EDT Narrative Resulting Agency Comment Spec In Lab Dl Sullivan MD HEMATOLOGY ORDERABLE S Performing Organization Address City/[facility]/ZIP Co de Phone Number [facility] [place] [address] * APTT (05/06/2020 1:42 AM EDT) Partial Thromboplastin Time 25 25 - 37 sec [facility] Comment: The PTT is NOT appropriate for heparin monitoring. Use the Anti-Xa level for heparin monitoring (HEP UFH) or LMWH monitoring (HEP LMW). A PTT less than 37 seconds generally indicates adequate hemostasis. Blood specimen (specimen) 05/06/2020 1:42 AM EDT 05/06/2020 2:00 AM EDT Narrative Resulting Agency Comment Spec In Lab Dl Sullivan MD HEMATOLOGY ORDERABLE S Performing Organization Address [facility] Co de Phone Number [facility] [place] [address] * (ABNORMAL) Prothrombin Time (05/06/2020 1:42 AM EDT) Prothrombin Time 14.6(H) 9.4 - 12.5 sec [facility] International Normalization Ratio 1.3 [facility] Comment: An INR <2.0 indicates adequate procoagulant activity for hemostasis in most patients without underlying bleeding disorders, though the INR may not adequately reflect hemostatic capacity in patients with liver disease and synthetic impairment. The recommended target INR range for therapeutic anticoagulation is 2.0 ? 3.0 for most applications, though lower and higher ranges may be appropriate depending on clinical circumstances. Blood specimen (specimen) 05/06/2020 1:42 AM EDT 05/06/2020 2:00 AM EDT Narrative Resulting Agency Comment Spec In Lab Dl Sullivan MD HEMATOLOGY ORDERABLE S Performing Organization Address [facility]/ZIP Co de Phone Number [facility] [place] [address] * (ABNORMAL) Hepatic Function Panel (05/06/2020 1:42 AM EDT) Protein, Total 7.3 6.1 - 8.0 gm/dL [facility] Albumin 4.3 3.2 - 5.2 gm/dL [facility] Aspartate Aminotransferase 43(H) 0 - 39 unit/L [facility] Alanine Aminotransferase 19 0 - 55 unit/L [facility] Alkaline Phosphatase 87 40 - 130 unit/L [facility] Bilirubin, Total 0.8 0.2 - 1.3 mg/dL [facility] Bilirubin, Direct 0.3 0.0 - 0.3 mg/dL [facility] Blood specimen (specimen) 05/06/2020 1:42 AM EDT 05/06/2020 2:00 AM EDT Narrative Resulting Agency Comment Spec In Lab Dl Sullivan MD CHEMISTRY ORDERABLES Performing Organization Address [facility] Co de Phone Number [facility] [place] [address] * Phosphorus (05/06/2020 1:42 AM EDT) Phosphorus 3.2 2.5 - 4.5 mg/dL [facility] Blood specimen (specimen) 05/06/2020 1:42 AM EDT 05/06/2020 2:00 AM EDT Narrative Resulting Agency Comment Spec In Lab Dl Sullivan MD CHEMISTRY ORDERABLES Performing Organization Address [facility] Co de Phone Number [facility] [place] [address] * Magnesium (05/06/2020 1:42 AM EDT) Magnesium 0.89 0.69 - 1.07 mmol/L [facility] Blood specimen (specimen) 05/06/2020 1:42 AM EDT 05/06/2020 2:00 AM EDT Narrative Resulting Agency Comment Spec In Lab Dl Sullivan MD CHEMISTRY ORDERABLES Performing Organization Address City/[facility]/ZIP Co de Phone Number [facility] [place] [address] * Basic Metabolic Panel (non-fasting) (05/06/2020 1:42 AM EDT) Glucose 90 65 - 199 mg/dL [facility] Comment:Diabetes: >=200 mg/d L plus symptoms Blood Urea Nitrogen 15 10 - 20 mg/dL [facility] Creatinine 0.97 0.80 - 1.50 mg/dL [facility] Sodium 139 135 - 145 mmol/L [facility] Potassium 3.5 3.5 - 5.0 mmol/L [facility] Comment: Please note: ??Patients with WBC >100,000 may have falsely elevated Potassium levels. ??For accurate Potassium quantification in these patients send serum separator tube (gold top) for subsequent determinations. ??Contact the Clinical Chemistry Laboratory if there are any questions. Chloride 103 98 - 107 mmol/L [facility] Carbon Dioxide 24 22 - 31 mmol/L [facility] Anion Gap 12 5 - 15 mmol/L [facility] Calcium 8.9 8.5 - 10.5 mg/dL [facility] Est Glomerular Filtration Rate 109 >=60 mL/min/1. 73 m?? [facility] Comment: The eGFR was calculated using the CKD-EPI equation. As with all creatinine based estimates of kidney function, eGFR values calculated with the CKD-EPI equation are not accurate in patients with acute kidney failure, extremes of body mass or the acutely ill. http://Target Data/[email or web address] eGFR 126 >=60 mL/min/1. 73 m?? [facility] Comment: The eGFR was calculated using the CKD-EPI equation. As with all creatinine based estimates of kidney function, eGFR values calculated with the CKD-EPI equation are not accurate in patients with acute kidney failure, extremes of body mass or the acutely ill. http://[employer] Data[email or web address] Blood specimen (specimen) 05/06/2020 1:42 AM EDT 05/06/2020 2:00 AM EDT Narrative Resulting Agency Comment Spec In Lab Dl Sullivan MD CHEMISTRY ORDERABLES [facility] [place] [address] * COVID-19 PCR (05/06/2020 1:30 AM EDT) SARS-CoV-2 RNA (Rapid) Not Detected Not Detected [facility] Comment: This result should be interpreted in combination with the clinical observations, patient history and epidemiological information. For testing of asymptomatic individuals, assay performance characteristics and clinical utility have not been evaluated. Testing for SARS-CoV-2 (Severe acute respiratory syndrome coronavirus 2, formerly known as 2019 novel coronavirus or 2019-nCoV) to aid in the diagnosis of COVID-19 is performed using the Simplexa COVID-19 Direct Assay by [employer] as authorized by the FDA issued Emergency Use Authorization (EUA). This assay is intended for In-vitro Diagnostic (IVD) use with nasopharyngeal swabs collected from individuals meeting the CDC criteria for testing. The assay is performed based on the instructions for use and additional guidance provided by the FDA. Testing is performed in the Microbiology Laboratory within the Department of Pathology and Laboratory Medicine at [facility], certified under the Clinical Laboratory Improvement Amendments of 1988 (CLIA), 42 U.S.C. section 263a, to perform high complexity tests. Assay performance has been verified according to clinical laboratory regulatory requirements. Test results are provided above. A result of Not Detected indicates that the viral RNA target is not present but does not preclude SARS-CoV-2 infection. False negative results may occur if a specimen is improperly collected, transported or handled; if amplification inhibitors are present; or if inadequate numbers of viral particles are present in the specimen. A result of Detected suggests a current or recent infection and the patient is presumed to be infected. Positive and negative predictive values for this test are highly dependent on disease prevalence. A result of Invalid indicates the inability to conclusively determine the presence or absence of SARS-CoV-2 RNA in the sample which can be due to a variety of factors. Recollection is recommended in the case of an invalid result. CDC COVID-19 criteria for testing on human specimens and clinical management guidance information are available at the CDC Coronavirus Disease 2019 (COVID-19) webpage under Information for Healthcare Professionals (https://www.cdc.gov/coronavirus/2019-ncov/hcp/index.html). SARS-CoV-2 Source [employer] Swab [facility] Nasopharyngeal swab (specimen) 05/06/2020 1:30 AM EDT 05/06/2020 4:42 AM EDT Comment:Symptoms->COVID-19 S uspected Narrative Resulting Agency Comment Spec In Lab Dl Sullivan MD MICROBIOLOGY - GENER AL ORDERABLES [facility] [place] [address] documented in this encounter Visit Diagnoses Diagnosis Acute viral myocarditis- Primary Elevated troponin Other abnormal blood chemistry Acute viral myocarditis Enteroviral infection Other specified diseases due to viruses Rhinovirus Rhinovirus infection in conditions classified elsewhere and of unspecified site Suspected COVID-19 virus infection Rhinovirus Rhinovirus infection in conditions classified elsewhere and of unspecified site Elevated troponin Other abnormal blood chemistry Hypokinesis Other general symptoms documented in this encounter Admitting Diagnoses Diagnosis Suspected COVID-19 virus infection documented in this encounter Administered Medications Inactive Administered Medications - up to 3 most recent administrations Medication Order MAR Action Action Date Dose Rate Site acetaminophen (Tylenol) tablet 650 mg 650 mg, Oral, EVERY 6 HOURS PRN, Starting on Thu05/06/20 at 0127, Until Thu05/08/20 at 1931, Pain, Fever, Administer for temperature greater than or equal to 38.2 degrees celsius. Maximum daily dose of acetaminophen from all sources not to exceed 4,000 mg. When ordered for pain, acetaminophen should be given even when other ordered pain medications are indicated., Routine Given 05/07/2020 4:17 PM EDT 650 mg Given 05/06/2020 1:38 PM EDT 650 mg Given 05/06/2020 2:21 AM EDT 650 mg enoxaparin (LOVENOX) injection 40 mg 40 mg, Subcutaneous, NIGHTLY, First dose on 05/06/20 at 2100, Until Discontinued, Routine Given 05/07/2020 8:20 PM EDT 40 mg Given 05/06/2020 8:24 PM EDT 40 mg gadoterate meglumine (DOTAREM) 0.5 mmol/mL (376.9 mg/mL) injection 28.86 mL 28.86 mL (0.2 mL/kg/dose ? 144.3 kg), Intravenous, ONCE PRN, 1 dose, Starting on Thu05/08/20 at 1412, Until Thu05/08/20 at 1412, Per Protocol, Routine Given 05/08/2020 2:12 PM EDT 56 m Ls ibuprofen (Advil;Motrin) tablet 600 mg 600 mg, Oral, EVERY 6 HOURS PRN, Starting on Thu05/06/20 at 1854, Until Thu05/08/20 at 1931, Pain, Administer orally with milk or food to minimize GI irritation. Maximum dose of 3200 mg from all sources in 24 hours, Routine Given 05/06/2020 7:43 PM EDT 600 mg metoprolol succinate XL (Toprol-XL) tablet 50 mg 50 mg, Oral, DAILY, First dose on Thu05/08/20 at 1700, Until Discontinued, DO NOT CRUSH OR OPEN, STAT Given 05/08/2020 5:05 PM EDT 50 mg ondansetron (ZOFRAN) injection 4-8 mg 4-8 mg, Intravenous, EVERY 8 HOURS PRN, Starting on Thu05/06/20 at 0127, Until Thu05/08/20 at 1931, Nausea, Start with 4mg and if ineffective in 30 minutes, give an additional 4mg If multiple antiemetics are ordered, give ondansetron first. ondansetron (Zofran) tablet 4-8 mg 4-8 mg, Oral, EVERY 8 HOURS PRN, Starting on Thu05/06/20 at 0127, Until Thu05/08/20 at 1931, Nausea, Vomiting, If multiple antiemetics are ordered, use ondansetron first. PO Preferred. If patient unable to take PO, may give IV if ordered. Start with 4mg and if ineffective in 45 minutes, give an additional 4mg. If unable to take PO, may give IV., Routine perflutren protein-A microspheres (OPTISON) 0.22 mg/mL injection 0.5 mL 0.5 mL, Intravenous, ONCE PRN, 1 dose, Starting on Thu05/07/20 at 1106, Until Thu05/07/20 at 0900, for enhancement of sub-optimal echo images, Echo Lab (Intra-Procedure), Routine Given 05/07/2020 9:00 AM EDT 2.5 mLs sodium chloride 0.9 % (flush) flush 5 mL 5 mL, Intravenous, 2 TIMES DAILY, First dose on 05/06/20 at 0215, Until Discontinued, Routine Given 05/08/2020 9:00 AM EDT 5 mLs Given 05/06/2020 8:25 PM EDT 5 mLs Given 05/06/2020 9:00 AM EDT 5 mLs documented in this encounter Active and Recently Administered Medications Times are shown in EDT. Scheduled Medication Order 05/06/2020 05/07/2020 05/08/2020 enoxaparin (LOVENOX) injection 40 mg 40 mg, Subcutaneous, NIGHTLY, First dose on 05/06/20 at 2100, Until Discontinued, Routine 2023 (Given - Provider: Tasha Black RN) 2019 (Given - Provider: Royal Tompkins RN) metoprolol succinate XL (Toprol-XL) tablet 50 mg 50 mg, Oral, DAILY, First dose on Thu05/08/20 at 1700, Until Discontinued, DO NOT CRUSH OR OPEN, STAT 1705 (Given - Provider: Lucia Smith RN) sodium chloride 0.9 % (flush) flush 5 mL 5 mL, Intravenous, 2 TIMES DAILY, First dose on 05/06/20 at 0215, Until Discontinued, Routine 223 (Given - Provider: Arianna Beyer RN)0900 (Given - Provider: Melba Lazaro RN)2024 (Given - Provider: Tasha Black RN) 0900 (Canceled Entry - Provider: Radha Davila RN - Reason: Transfer to a Procedural area)2099 (Due) 0900 (Given - Provider: Lucia Smith RN) PRN Medication Order 05/06/2020 05/07/2020 05/08/2020 acetaminophen (Tylenol) tablet 650 mg 650 mg, Oral, EVERY 6 HOURS PRN, Starting on 05/06/20 at 0127, Until Thu05/08/20 at 1931, Pain, Fever, Administer for temperature greater than or equal to 38.2 degrees celsius. Maximum daily dose of acetaminophen from all sources not to exceed 4,000 mg. When ordered for pain, acetaminophen should be given even when other ordered pain medications are indicated., Routine 022 (Given - Provider: Arianna Beyer, RN)1338 (Given - Provider: Melba Lazaro, RAZIA) 1617 (Given - Provider: Radha Davila, RAZIA) gadoterate meglumine (DOTAREM) 0.5 mmol/mL (376.9 mg/mL) injection 28.86 mL (COMPLETED) 28.86 mL (0.2 mL/kg/dose ? 144.3 kg), Intravenous, ONCE PRN, 1 dose, Starting on Thu05/08/20 at 1412, Until Thu05/08/20 at 1412, Per Protocol, Routine 141 (Given - Provider: Vince Bernard) ibuprofen (Advil;Motrin) tablet 600 mg 600 mg, Oral, EVERY 6 HOURS PRN, Starting on Thu05/06/20 at 1854, Until Thu05/08/20 at 1931, Pain, Administer orally with milk or food to minimize GI irritation. Maximum dose of 3200 mg from all sources in 24 hours, Routine 194 (Given - Provider: Tasha Black RN) lidocaine (XYLOCAINE) 10 mg/mL (1 %) injection 3 mg 3 mg (0.3 mL), Subcutaneous, ONCE PRN, 1 dose, Starting on Thu05/06/20 at 0127, Until Thu05/08/20 at 1931, for discomfort with PIV insertion, Routine ondansetron (ZOFRAN) injection 4-8 mg(Linked Group 1) 4-8 mg, Intravenous, EVERY 8 HOURS PRN, Starting on Thu05/06/20 at 0127, Until Thu05/08/20 at 193, Nausea, Start with 4mg and if ineffective in 30 minutes, give an additional 4mg If multiple antiemetics are ordered, give ondansetron first. ondansetron (Zofran) tablet 4-8 mg(Linked Group 1) 4-8 mg, Oral, EVERY 8 HOURS PRN, Starting on 05/06/20 at 0127, Until Thu05/08/20 at 1931, Nausea, Vomiting, If multiple antiemetics are ordered, use ondansetron first. PO Preferred. If patient unable to take PO, may give IV if ordered. Start with 4mg and if ineffective in 45 minutes, give an additional 4mg. If unable to take PO, may give IV., Routine perflutren protein-A microspheres (OPTISON) 0.22 mg/mL injection 0.5 mL (COMPLETED) 0.5 mL, Intravenous, ONCE PRN, 1 dose, Starting on 05/07/20 at 1106, Until Thu05/07/20 at 0900, for enhancement of sub-optimal echo images, Echo Lab (Intra-Procedure), Routine 0900 (Given - Provider: Ti Arambula) sodium chloride 0.9 % (flush) flush 5-20 mL 5-20 mL, Intravenous, EVERY 1 MIN PRN, Starting on 05/06/20 at 0127, Until Tu05/08/20 at 1931, flush, Flush pertains to all indwelling lines. Flush per protocol found in the job aid using the link provided on this medication record., Routine Linked Groups Order Group 1: ondansetron (Zofran) tablet 4-8 mgJump to med 4-8 mg, Oral, EVERY 8 HOURS PRN, Starting on Thu05/06/20 at 0127, Until Thu05/08/20 at 1931, Nausea, Vomiting, If multiple antiemetics are ordered, use ondansetron first. PO Preferred. If patient unable to take PO, may give IV if ordered. Start with 4mg and if ineffective in 45 minutes, give an additional 4mg. If unable to take PO, may give IV., Routine Or ondansetron (ZOFRAN) injection 4-8 mgJump to med 4-8 mg, Intravenous, EVERY 8 HOURS PRN, Starting on Thu05/06/20 at 0127, Until Thu05/08/20 at 1931, Nausea, Start with 4mg and if ineffective in 30 minutes, give an additional 4mg If multiple antiemetics are ordered, give ondansetron first. documented in this encounter Additional Health Concerns Infection Onset Date Last Indicated Resolved Time Rule Out COVID-19 05/06/2020 05/06/2020 05/06/2020 4:44 AM EDT Rule Out Respiratory 05/06/2020 05/06/2020 020 6:18 PM EDT Rule Out COVID-19 05/06/2020 05/06/2020 05/06/2020 5:28 PM EDT Enterovirus / Rhinovirus 05/06/2020 05/06/202010/2019 8:09 PM EST documented as of this encounter Care Teams Chief Of Safety And Protection Relationship Specialty Start Date End Date Camille Barbour APRN [address] [place] [address] [address] [place] [address] PCP - General Family Medicine 05/05/20 documented as of this encounter
--- OUTSIDE RECORDS SUMMARY | 2024-06-06 14:33 | XMS_ITS | Encounter Summary ---
Author Organization [facility] Address [address] [place] [address] Care Team Providers Care Sheet Metal Apprentice Name Role Phone Unknown, Provider Primary Care Provider Unava ilable Encounter Details Date Type Department Care Team (Late st Contact Info) Description 07/21/2022 Lab Requisition [facility] Pathology & Laboratory Medicine - [facility] [address], [place] [id number] Outr Resulting Lab, Provider Social History Tobacco Use Types Packs/Day Years [...] Procedure Name Priority Date/Time Associated Diagnosis Comments HIV 1/2 ANTIGEN AND ANTIBODY, 4TH GENERATION Routine 07/21/2022 10:27 EST documented in this encounter Results * HIV 1/2 ANTIGEN AND ANTIBODY, 4TH GENERATION (07/21/2022 10:27 EST) HIV 1 and 2 Antibody/p24 Antigen, 4th Generation Negative Negative 07/22/2022 10:48 EST [facility] Comment:If acute HIV-1 infec tion is suspected in a high risk patient, submit plasma specimen for HIV-1 RNA quantitation test. Blood VENOUS BLOOD / Unknown 07/21/2022 10:27 EST 07/21/2022 22:21 EST Narrative [facility] - 07/22/2022 10:48 EST Fourth Generation assay performed on the Siemens Centaur XPT. us Provider Outr Resulting Lab IMMUNOLOGY AND SEROL OGY ORDERABLES Final Result [facility] [address] [place] [address] documented in this encounter Visit Diagnoses Not on filedocumented in this encounter Care Teams Sheet Metal Apprentice Relationship Specialty Start Date End Date Unknown, Provider, PCP - General 02/16/18 documented as of this encounter
--- OUTSIDE RECORDS SUMMARY | 2024-06-06 14:33 | XMS_ITS | Encounter Summary ---
Author Organization [facility] [place] [address] Care Team Providers Care Insurance Risk Surveyor Name Role Phone Camille Barbour Clarke RODRIGUEZ Primary Care Provider [phone] Reason for Referral * Diagnostic Test (Routine) - Closed Specialty Diagnoses / Procedures Referred By Contac t Referred To Contact Radiology Diagnoses Acute viral myocarditis Procedures MRI Cardiac Morphology Function donato Contrast Joe Talavera MD [facility] [place] [address] [place] [address] Referral ID Status Reason Start Date Expiration Date V isits Requested Visits Authorized [id number] Closed Specialty Service Requested 07/25/2020 01/22/2022 1 1 Reason for Visit * Diagnostic Test (Routine) - Closed Specialty Diagnoses / Procedures Referred By Contac t Referred To Contact Radiology Diagnoses Acute viral myocarditis Procedures MRI Cardiac Morphology Function Joe Acevedo MD [facility] [place] [address] [place] [address] Referral ID Status Reason Start Date Expiration Date V isits Requested Visits Authorized [id number] Closed Specialty Service Requested 07/25/2020 01/22/2022 1 1 Encounter Details Date Type Department Care Team (Latest Contact Info) Description 08/10/2020 8:45 AM EST - 08/10/2020 11:59 PM EST Hospital Encounter MRI at [facility] [place] [address] Reese Geronimo MD [facility] [place] [address] Acute viral myocarditis Discharge Disposition: Home Social History Tobacco Use [...] on file documented as of this encounter Medications at Time of Discharge Medication Sig Dispensed Refills Start Date End Date metoprolol succinate XL (Toprol-XL) 100 mg Tablet Sustained Release 24 hr TAKE ONE TABLET BY MOUTH EVERY DAY 07/18/2020 ibuprofen (Advil;Motrin) 600 mg Tablet Take 1 tablet by mouth every 6 hours as needed for Pain. 30 tablet 05/07/2020 documented as of this encounter Plan of Treatment Not on file documented as of this encounter Procedures Procedure Name Priority Date/Time Associated Diagnosis Comments MRI CARDIAC MORPHOLOGY FUNCTION WWO CONTRAST Routine 08/10/2020 10:58 AM EST Acute viral myocarditis documented in this encounter Results * MRI Cardiac Morphology Function wwo Contrast (08/10/2020 10:58 AM EST) Anatomical Region Laterality Modality Magnetic Resonan ce Impressions 08/10/2020 4:46 PM EST 1. ??Near-complete resolution of patchy subepicardial enhancement in basal left ventricular lateral wall. Trace residual low-level delayed enhancement, likely minimal post inflammatory scarring. 2. ??Improved LVEF 55%, previously 52%. I have personally reviewed the image(s) and the resident's interpretation and agree with the findings, Purvi Rajan MD at 08/10/2020 4:46 PM Thank you for letting us participate in the care of this patient. For questions regarding this report, please contact the number below. ? Electronically signed by: Purvi Rajan MD, [facility] ([phone]), at 08/10/2020 4:46 PM Narrative 08/10/2020 4:46 PM EST EXAMINATION: MRI CARDIAC MORPHOLOGY FUNCTION WWO CONTRAST CLINICAL HISTORY: Acute myocarditis COMPARISON: Cardiac MRI 05/08/2020 TECHNIQUE: Axial HASTE without contrast. Short and long axis cine steady-state free precession without contrast. ?? Phase contrast imaging just above the aortic and pulmonic valve level. Short and long axis rest perfusion and delayed enhancement after intravenous administration of 56 cc of Dotarem Post-processing performed on an independent computer workstation. FINDINGS: Chambers Left ventricle: Normal morphology and structure. Note the presence of a false chord/tendon obliquely oriented in the upper to mid chamber, an anatomic variant. Other chambers: Normal morphology and structure. Myocardium Non-contrast series: No abnormal myocardial signal on non-contrast imaging. Post-contrast series: Normal left ventricular myocardial enhancement during rest perfusion. Normal myocardial signal nulling on the postcontrast inversion recovery images. Low-level subepicardial delayed enhancement (series 3 image 4) within the basal lateral wall. Other areas of delayed enhancement have resolved. Wall motion abnormalities: Subjectively low-normal systolic function. No global or segmental wall motion abnormalities. Valves: No valvulopathy identified. Pericardium: No pericardial thickening or effusion. Aorta: Normal contour and caliber. Other thoracic great vessels: Normal contour and caliber. Non-cardiovascular structures: No significant findings. QUANTITATIVE DATA: Body surface area: 2.8 m^2 LEFT VENTRICLE: LV Mass: 162.1 g LV End-Diastolic Volume: 243.7 mL LV End-Systolic Volume: 110.7 mL Stroke Volume: 133.0 mL LV Ejection Fraction: 54.6% Cardiac Output: 7.0 L/min Anteroseptal Wall Thickness: 1.1 mm Posterolateral Wall Thickness: 9.9 mm End-Diastolic Dimension: 5.7 cm End-Systolic Dimension: 4.7 cm RIGHT VENTRICLE: RV End-Diastolic Volume: 218.0 mL RV End-Systolic Volume: 80.6 mL RV Stroke Volume: 129.4 mL RV Ejection Fraction: 59.4% Procedure Note Purvi Rajan MD - 08/10/2020 EXAMINATION: MRI CARDIAC MORPHOLOGY FUNCTION WWO CONTRAST CLINICAL HISTORY: Acute myocarditis COMPARISON: Cardiac MRI 05/08/2020 TECHNIQUE: Axial HASTE without contrast. Short and long axis cine steady-state free precession without contrast. Phase contrast imaging just above the aortic and pulmonic valve level. Short and long axis rest perfusion and delayed enhancement afterintravenous administration of 56 cc of Dotarem Post-processing performed on an independent computer workstation. FINDINGS: Chambers Left ventricle: Normal morphology and structure. Note the presence of afalse chord/tendon obliquely oriented in the upper to mid chamber, an anatomic variant. Other chambers: Normal morphology and structure. Myocardium Non-contrast series: No abnormal myocardial signal on non-contrastimaging. Post-contrast series: Normal left ventricular myocardial enhancementduring rest perfusion. Normal myocardial signal nulling on the postcontrastinversion recovery images. Low-level subepicardial delayed enhancement (series 3image 4) within the basal lateral wall. Other areas of delayed enhancement haveresolved. Wall motion abnormalities: Subjectively low-normal systolic function. Noglobal or segmental wall motion abnormalities. Valves: No valvulopathy identified. Pericardium: No pericardial thickening or effusion. Aorta: Normal contour and caliber. Other thoracic great vessels: Normal contour and caliber. Non-cardiovascular structures: No significant findings. QUANTITATIVE DATA: Body surface area: 2.8 m^2 LEFT VENTRICLE: LV Mass: 162.1 g LV End-Diastolic Volume: 243.7 mL LV End-Systolic Volume: 110.7 mL Stroke Volume: 133.0 mL LV Ejection Fraction: 54.6% Cardiac Output: 7.0 L/min Anteroseptal Wall Thickness: 1.1 mm Posterolateral Wall Thickness: 9.9 mm End-Diastolic Dimension: 5.7 cm End-Systolic Dimension: 4.7 cm RIGHT VENTRICLE: RV End-Diastolic Volume: 218.0 mL RV End-Systolic Volume: 80.6 mL RV Stroke Volume: 129.4 mL RV Ejection Fraction: 59.4% IMPRESSION 1. Near-complete resolution of patchy subepicardial enhancement in basalleft ventricular lateral wall. Trace residual low-level delayed enhancement,likely minimal post inflammatory scarring. 2. Improved LVEF 55%, previously 52%. I have personally reviewed the image(s) and the resident's interpretationand agree with the findings, Purvi Rajan MD at 08/10/2020 4:46 PM Thank you for letting us participate in the care of this patient. Forquestions regarding this report, please contact the number below. Electronically signed by: Purvi Rajan MD, [facility]([phone]), at 08/10/2020 4:46 PM Reese Geronimo MD IMG MRI ORDERABLES documented in this encounter Visit Diagnoses Diagnosis Acute viral myocarditis documented in this encounter Administered Medications Inactive Administered Medications - up to 3 most recent administrations Medication Order MAR Action Action Date Dose Rate Site gadoterate meglumine (Dotarem) (0.5 mMol/mL) injection solution 29.84 mL 29.84 mL (0.2 mL/kg/dose ? 149.2 kg), Intravenous, ONCE PRN, 1 dose, Starting on Thu08/10/20 at 1103, Until Thu08/10/20 at 1103, Per Protocol, Radiology Contrast, Routine Given 08/10/2020 11:03 AM EST 56 mLs documented in this encounter Care Teams Insurance Risk Surveyor Relationship Specialty Start Date End Date Camille Barbour APRN [address] [place], [place] [address]Y [facility] [address] [place] [address] PCP - General Family Medicine 05/05/20 documented as of this encounter
--- OUTSIDE RECORDS SUMMARY | 2024-06-06 14:33 | XMS_ITS | Encounter Summary ---
Author Organization [facility] Address [address] [place] [address] Care Team Providers Care Wrapping Machine Helper Name Role Phone Unknown, Provider Primary Care Provider Unava ilable Encounter Details Date Type Department Care Team (Late st Contact Info) Description 07/21/2022 Lab Requisition [facility] Pathology & Laboratory Medicine - [facility] [address] [place], [place] [id number] Outr Resulting Lab, Provider Social History Tobacco [...] Procedure Name Priority Date/Time Associated Diagnosis Comments IMMUNOGLOBULINS Routine 07/21/2022 10:27 EST IGE Routine 07/21/2022 10:27 EST CORTISOL Routine 07/21/2022 10:27 EST documented in this encounter Results * IGE (07/21/2022 10:27 EST) IgE 12 <158 IU/mL 07/23/2022 11:01 EST [facility] Blood VENOUS BLOOD / Unknown 07/21/2022 10:27 EST 07/21/2022 22:21 EST us Provider Outr Resulting Lab CHEMISTRY & BLOOD GA S ORDERABLES Final Result [facility] [address] [place] [address] * IMMUNOGLOBULINS (07/21/2022 10:27 EST) IgG 1,419 610 - 1,616 mg/dL 07/22/2022 9:28 EST [facility] IgA 312 85 - 499 mg/dL 07/22/2022 9:28 EST [facility] IgM 113 35 - 242 mg/dL 07/22/2022 9:28 EST [facility] Blood VENOUS BLOOD / Unknown 07/21/2022 10:27 EST 07/21/2022 22:21 EST Provider Outr Resulting Lab CHEMISTRY & BLOOD GA S ORDERABLES Final Result Performing Organization Address [facility] Co de Phone Number [facility] [address] [place] [address] * CORTISOL (07/21/2022 10:27 EST) Cortisol 13 See Note ug/dL 07/21/2022 23:13 EST [facility] Comment: NOTE: Reference Ranges (from OCD IFU): Collected Before 10:00 AM: ??4 - 23 ug/dL Collected After 5:00 PM: ?2 - 14 ug/dL The results of this assay can be falsely elevated due to the consumption of Biotin. Blood VENOUS BLOOD / Unknown 07/21/2022 10:27 EST 07/21/2022 22:21 EST Provider Outr Resulting Lab CHEMISTRY & BLOOD GA S ORDERABLES Final Result Performing Organization Address City/[facility]/ZIP Co de Phone Number [facility] [address] [place] [address] documented in this encounter Visit Diagnoses Not on filedocumented in this encounter Care Teams Wrapping Machine Helper Relationship Specialty Start Date End Date Unknown, Provider, PCP - General 02/16/18 documented as of this encounter
--- OUTSIDE RECORDS SUMMARY | 2024-06-06 14:33 | XMS_ITS | Encounter Summary ---
Author Organization [facility] Address [facility] [place] [place] [address] Care Team Providers Care Floriculture Professor Name Role Phone Camille Barbour JENNIFER Primary Care Provider [phone] Encounter Details Date Type Department Care Team (Late st Contact Info) Description 05/05/2020 Telephone Cardiology at [address] [address] Ramesh Huertas MD [facility] [place] [address] Social History Tobacco Use Types Packs/Day Years Used Date Smoking Tobacco: Never Assessed Sex and Gender Information Value Date Recorded Sex Assigned at Not on file Gender Identity Not on file Sexual Orientation Not on file documented as of this encounter Miscellaneous Notes * Telephone Encounter - Ramesh Huertas MD - 05/05/2020 10:06 PM EDT Images from the original note were not included. 05/05/2020 Alcides Lo Initial Contact Date: 05/05/2020 Initial contact time: 10:06 PM Referring Provider: Dr. Maldonado Patient Location: [facility] Past Medical History: None Presenting Symptoms per OSH: Mr. Lo is a 25M with no medical hx who presents to [facility] with covid symptoms. 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 Only symptoms are a mild cough, mild SOB but is on RA. No CP or known cardiac history. Pertinent Diagnostic Findings: BP 129/72, HR 90s, RR 16, O2 97% on RA No leukocytosis CRP 11 (ULN 0.3) Trop I 9.48 (ULN 0.06) CTPA neg EKG - NSR without e/o ischemia OSH Interventions: None Plan: Mr. Lo is a 25M with no medical hx who presents to [facility] with covid symptoms. Cardiology involved on a transfer center call with pulm critical care given concern for possible viral myocarditis. Currently patient is hemodynamically stable without any symptomatology. Trop I is elevated to 9.48. Lower concern for ACS at this time given lack of symptoms and normal EKG. Recommended against heparinizing at this time. Patient is not suitable for cardiology primary service. Cardiology will be happy to consult on patient if he is transferred to [facility]. Above recommendations were based on my discussion with Dr. Maldonado; I have not personally interviewed or examined this patient. Ramesh Huertas PGY4 Cardiology [id number] documented in this encounter Plan of Treatment Not on file documented as of this encounter Visit Diagnoses Not on filedocumented in this encounter Care Teams Floriculture Professor Relationship Specialty Start Date End Date Camille Barbour APRN [address] [place] [address] PCP - General Family Medicine 05/05/20 documented as of this encounter
--- OUTSIDE RECORDS SUMMARY | 2024-06-06 14:33 | XMS_ITS | Encounter Summary ---
Author Organization [facility] [place] [address] Care Team Providers Care Professor Of Chemical Engineering Name Role Phone GuerlineCamille spencer JENNIFER Primary Care Provider [phone] [phone] Encounter Details Date Type Department Care Team (Late st Contact Info) Description 02/25/2024 Lab [place]quisition [place] [address] Ramesh Mcelroy S, DO [address] [place] [address] Social History Tobacco Use Types Packs/Day Years [...] Procedure Name Priority Date/Time Associated Diagnosis Comments SURGICAL PATHOLOGY (REQ ENTRY) Routine 02/25/2024 9:43 AM EDT documented in this encounter Results * Surgical Pathology (Req Entry) (02/25/2024 9:43 AM EDT) Case Report Surgical Pathology Report ? Case: [id number] ? Authorizing Provider: ??Navi, Ramesh Valdez, ??Collected: ? 02/25/2024 0943 ? DO ? Ordering Location: ? Laboratory ? Received: ?02/25/20244 ? Pathologist: ? Felipe, Jannette, MD ? Specimens: ?? A) - Small Bowel, Duodenal Bulb, Duodenal Bxs ? B) - Stomach, Antrum, Antral Bxs ? C) - Stomach, Body of Stomach ? D) - Esophagus, Distal ? E) - Colon, Random ? 03/02/2024 10:59 AM [facility] Final Diagnosis A. Small Bowel, Duodenal Bulb, Duodenal Bxs Biopsy: Duodenal mucosa with preserved villous architecture and foveolar metaplasia. B. Stomach, Antrum, Antral Bxs Biopsy: Gastric antral mucosa within normal limits. No H. Pylori-like microorganisms are seen. C. Stomach, Body of Stomach Biopsy: Gastric fundic gland mucosa with active and chronic gastritis. Immunostain for H. Pylori is negative. D. Esophagus, Distal, Biopsy: Gastric fundic gland mucosa with chronic gastritis. Esophageal squamous mucosa within normal limits. Immunostain for H. Pylori is negative. E. Colon, Random, Biopsy: Colonic mucosa within normal limits. 03/02/2024 10:59 AM [facility] Additional Studies Task ID IHC/Special Stains Result C1-2 H pylori Negative D1-2 H pylori Negative 03/02/2024 10:59 AM [facility] Disclaimer(s) Formalin-fixed, paraffin-embedded tissue sections are studied using the polymer technique with appropriate positive and negative controls. These IHC studies provide the pathologist with adjunctive diagnostic information. Antibody specificity has been verified by testing antibodies on a series of in-house tissues with known immunohistochemical performance characteristics. The clinical interpretation of any antibody positive staining or its absence is evaluated within the context of clinical presentation, morphology, histopathological criteria and other diagnostic tests. 03/02/2024 10:59 AM EDT [facility] Clinical Information History of chronic diarrhea and abdominal bloating. Grossly normal EGD/colonoscopy other than mild gastritis. 03/02/2024 10:59 AM T [facility] Gross Description A. Small Bowel, Duodenal Bulb, Duodenal Bxs. Labeled/Fixative: Duodenal biopsies, formalin. Quantity/Size: Fragments, 0.2 0.3 cm. Tissue Description: Soft, wispy, moe-romero tissues. Sections/Processing: Submitted in toto in 1 cassette labeled A1. B. Stomach, Antrum, Antral Bxs. Labeled/Fixative: Antral biopsy, formalin. Quantity/Size: Two, 0.2 cm. Tissue Description: Soft, moe-pink tissues. Sections/Processing: Submitted in toto in 1 cassette labeled B1. C. Stomach, Body of Stomach. Labeled/Fixative: Stomach, body of stomach, formalin. Quantity/Size: Single, 0.2 cm. Tissue Description: Soft, moe-pink tissue. Sections/Processing: Submitted in toto in 1 cassette labeled C1. D. Esophagus, Distal, . Labeled/Fixative: Distal esophagus, formalin. Quantity/Size: Two, 0.3 cm. Tissue Description: Soft, moe-pink tissues. Sections/Processing: Submitted in toto in 1 cassette labeled D1. E. Colon, Random, . Labeled/Fixative: Random colon biopsies, formalin. Quantity/Size: Multiple, 0.2 to 0.4 cm. Tissue Description: Soft, moe-romero tissues. Sections/Processing: Submitted in toto in 2 cassettes labeled E1-E2. 03/02/2024 10:59 AM T [facility] Result Note Routine 03/02/2024 10:59 AM [facility] Tissue DUODENAL AMPULLA STRUCTURE / Unknown 02/25/2024 9:43 AM EDT 02/25/2024 10:04 PM EDT Tissue specimen (specimen) PYLORIC ANTRUM STRUCTURE / Unknown 02/25/2024 9:43 AM EDT 02/25/2024 10:04 PM EDT Tissue specimen (specimen) STOMACH STRUCTURE / Unknown 02/25/2024 9:43 AM EDT 02/25/2024 10:04 PM EDT Tissue specimen (specimen) REGION OF ESOPHAGUS / Unknown 02/25/2024 9:43 AM EDT 02/25/2024 10:04 PM EDT Tissue specimen (specimen) (Colon, Random) 02/25/2024 9:43 AM EDT 02/25/2024 10:04 PM EDT Ramesh Mcelroy DO PATHOLOGY/CYT OLOGY ORDERABLES [facility] [place] [address] documented in this encounter Visit Diagnoses Not on filedocumented in this encounter Care Teams Professor Of Chemical Engineering Relationship Specialty Start Date End Date Camille Barbour APRN [address] [place] [address] PCP - General Family Medicine 05/05/20 documented as of this encounter
--- OUTSIDE RECORDS SUMMARY | 2024-06-06 14:33 | XMS_ITS | Encounter Summary ---
Author Organization [facility] Address [address] [place] [address] Care Team Providers Care Metal Expediter Name Role Phone Unknown, Provider Primary Care Provider Unava ilable Encounter Details Date Type Department Care Team (Late st Contact Info) Description 02/16/[address] [facility] [phone] Ny Stephens, DO [address] [place] [address] Social History Tobacco Use Types Packs/Day Years [...] Priority Date/Time Associated Diagnosis Comments SURGICAL PATHOLOGY Routine 02/16/2018 8:53 EDT documented in this encounter Results * SURGICAL PATHOLOGY (02/16/2018 8:53 EDT) Pathology Report: SURGICAL PATHOLOGY REPORT Reports generated via electronic interface contain original data; however they are lacking the format of the original report. Caution should be taken when reading/interpret ing unformatted reports. Name: ? ALCIDES STAFFORD ? Accession #: ? [id number] ? : ? 1995 (Age: 22) ??M ? Collect Date: ? 02/16/2018 ? Location: ? [facility] ? Receive Date: ? 02/16/2018 ? Provider: [place] STEPHENS DO Copy to: ANNY RIVERA MD ? Final Pathologic Diagnosis: A. ??SOFT TISSUE, ANTERIOR CHEST WALL, EXCISION: - Mature adipose tissue, consistent with lipoma. B. ??SOFT TISSUE, LEFT FOREARM, EXCISION: - Mature adipose tissue, consistent with lipoma. Document reviewed and electronically signed by: PADMINI ACEVEDO MD Report ??Date: 02/18/2018 15:43 By the signature above, the attending physician certifies that he/she has personally conducted a gross and/or microscopic examination of the described specimens and rendered or confirmed the above diagnosis. Specimen(s) Received: A. ?Anterior chest wall neoplasm B. ? Neoplasms left forearm Clinical History: Neoplasm torso and left forearm Gross Description: A. ?Received in formalin labelled with proper patient identification (initials C, T) and anterior chest wall neoplasm is a 1.5 x 1.2 x 1.0 cm irregular fragment of firm, homogenous pale yellow adipose tissue weighing 0.80 grams. The intact outer surface is inked blue. Sectioning reveals homogenous pale yellow to white cut surfaces. ??No firm areas are identified. Representative Government Relations sections are submitted in A1. B. ?Received in formalin labelled with proper patient identification (initials C, T) and neoplasms left forearm are three irregular fragments of pale yellow adipose tissue (2.0 x 2.0 x 0.5 cm in aggregate) weighing 0.89 g. The intact outer surfaces are inked blue. Sectioning reveals homogenous pale yellow to white cut surfaces. No firm areas are identified. Representative Government Relations sections are submitted in B1 and B2. ALEXI Riley (ASCP) 02/17/2018 9:35 AM End of Report [facility] 02/16/2018 8:53 EDT 02/16/2018 8:53 EDT us Ny Stephens DO PATHOLOGY ORDERABLES Final Res ult [facility] [address] [place] [id number] documented in this encounter Visit Diagnoses Not on filedocumented in this encounter Care Teams Metal Expediter Relationship Specialty Start Date End Date Unknown, Provider, PCP - General 02/16/18 documented as of this encounter
--- OUTSIDE RECORDS SUMMARY | 2024-06-06 14:33 | XMS_ITS | Encounter Summary ---
Author Organization [facility] Address [address] [place] [address] Care Team Providers Care Lead Manufacturing Technician Name Role Phone Unknown, Provider Primary Care Provider Unava ilable Encounter Details Date Type Department Care Team (Late st Contact Info) Description 12/06/[address] [facility] Pathology & Laboratory Medicine - [address] [id number] Outr Resulting Lab, Provider Social History Tobacco [...] Procedure Name Priority Date/Time Associated Diagnosis Comments FECAL BACTERIAL PATHOGENS BY PCR Routine 12/05/2023 14:30 EDT GIARDIA AND CRYPTOSPORIDIUM ANTIGENS Routine 12/05/2023 14:30 EDT OVA/PARASITE EXAM Routine 12/05/2023 14: 30 EDT documented in this encounter Results * GIARDIA AND CRYPTOSPORIDIUM ANTIGENS (12/05/2023 14:30 EDT) Giardia and Cryptosporidium Cryptosporidium Antigen Neg and Giardia Antigen Neg Cryptosporidium Antigen Neg and Giardia Antigen Neg 9:55 EDT [facility] Feces SPECIMEN FROM RECTUM / Unknown 12/05/2023 14:30 EDT 12/06/2023 15:47 EDT us Provider Outr Resulting Lab MICROBIOLOGY - GENER AL ORDERABLES Final Result Performing Organization Address [facility] de Phone Number [facility] [address] [place] [id number] * FECAL BACTERIAL PATHOGENS BY PCR (12/05/2023 14:30 EDT) Salmonella PCR Negative Negative 12/06/2023 22:53 EDT [facility] Shigella/Enteroin vasive E. coli Negative Negative 12/06/2023 22:53 EDT [facility] HN LAB CAMPYLOBACTER PCR Negative Negative 12/06/2023 22:53 EDT [facility] Shiga Toxin PCR Negative Negative 22:53 EDT [facility] Feces SPECIMEN FROM RECTUM / Unknown 12/05/2023 14:30 EDT 12/06/2023 15:47 EDT us Provider Outr Resulting Lab MICROBIOLOGY - GENER AL ORDERABLES Final Result Performing Organization Address [facility] Phone Number [facility] [address] [place] [phone] * OVA/PARASITE EXAM (12/05/2023 14:30 EDT) Parasite No ova and parasites seen. 12/08/2023 11:10 EDT [facility] Feces SPECIMEN FROM RECTUM / Unknown 12/05/2023 14:30 EDT 12/06/2023 15:47 EDT Narrative [facility] - 12/08/2023 11:10 EDT (If Cryptosporidium, Cyclospora, or Microsporidium are suspected, specific tests must be requested.) Single negative specimen does not rule out the possibility of a parasitic infection. us Provider Outr Resulting Lab MICROBIOLOGY - GENER AL ORDERABLES Final Result Performing Organization Address [facility]/State/ZIP Co de Phone Number [facility] [address] [place] [address] documented in this encounter Visit Diagnoses Not on filedocumented in this encounter Care Teams Lead Manufacturing Technician Relationship Specialty Start Date End Date Unknown, Provider, PCP - General 02/16/18 documented as of this encounter
--- OUTSIDE RECORDS SUMMARY | 2024-06-06 14:33 | XMS_ITS | Encounter Summary ---
Author Organization [facility] Address [address] [place] [address] Care Team Providers Care Registration Representative Name Role Phone Unknown, Provider Primary Care Provider Unava ilable Encounter Details Date Type Department Care Team (Late st Contact Info) Description 02/19/2022 Lab Requisition [facility] Pathology & Laboratory Medicine - [facility] [address] [place] [address] Outr Resulting Lab, Provider Social History Tobacco [...] Procedure Name Priority Date/Time Associated Diagnosis Comments ZZCOVID-19 TEST [facility] PCR Today 02/18/2022 12:16 EDT COVID-19 TESTING Routine 02/18/2022 12:1 6 EDT documented in this encounter Results * COVID-19 TEST [facility] PCR (02/18/2022 12:16 EDT) Swab 02/18/2022 12:1 6 EDT 02/19/2022 17:44 EDT us Provider Outr Resulting Lab MICROBIOLOGY - GENER AL ORDERABLES Final Result [facility] [address] [place] [address] * COVID-19 TESTING (02/18/2022 12:16 EDT) COVID-19 rt-PCR Result Negative Negative 02/20/2022 11:59 EDT [facility] Comment: This test has not been FDA cleared or approved. This test has been authorized by FDA under an EUA for use by authorized laboratories. This test has been authorized only for detection of nucleic acid from 2019-nCoV, not for any other viruses or pathogens. This test is only authorized for the duration of the declaration that circumstances exist justifying the authorization of emergency use of in vitro diagnostic tests for detection and/or diagnosis of 2019-nCoV under section 564(b)(1) of Act, 21 U.S.C ?? 360bbb-3(b) (1), unless the authorization is terminated or revoked sooner. Negative results do not preclude 2019-nCoV infection and should not be used as the sole basis for treatment or other patient management decisions. Negative results must be combined with clinical observations, patient history, and epidemiological information. Testing was performed using the charli SARS-CoV-2 assay ([employer] on the Charli 6800 System Performing Lab Charli [address] [facility] Lab 02/20/2022 11:59 EDT [facility] Swab 02/18/2022 12:1 6 EDT 02/19/2022 17:44 EDT us Provider Outr Resulting Lab MICROBIOLOGY - GENER AL ORDERABLES Final Result [facility] [address] [place] [address] documented in this encounter Visit Diagnoses Not on filedocumented in this encounter Care Teams Registration Representative Relationship Specialty Start Date End Date Unknown, Provider, PCP - General 02/16/18 documented as of this encounter
--- OUTSIDE RECORDS SUMMARY | 2024-06-06 14:33 | XMS_ITS | Encounter Summary ---
Author Organization [facility] Address [address] [place] [address] Care Team Providers Care Rehab Spec Name Role Phone Unknown, Provider Primary Care Provider Unava ilable Encounter Details Date Type Department Care Team (Latest Contact Info) Description 02/16/2018 9:45 EDT - 02/16/2018 23:59 EDT Hospital Encounter [address] [address] Unknown, Provider, Discharge Disposition: Home or Self Care Social History Tobacco Use Types Packs/Day Years Used Date Smoking Tobacco: Never Assessed Sex and Gender Information Value Date Recorded Sex Assigned at Not on file Legal Sex Male 23:55 EDT Gender Identity Not on file Sexual Orientation Not on file documented as of this encounter Discharge Disposition Disposition Code Departure Means Destination Home or Self Shelter documented in this encounter Plan of Treatment Not on file documented as of this encounter Visit Diagnoses Not on filedocumented in this encounter Care Teams Rehab Spec Relationship Specialty Start Date End Date Unknown, Provider, PCP - General 02/16/18 documented as of this encounter
--- OUTSIDE RECORDS SUMMARY | 2024-06-06 14:33 | XMS_ITS | Encounter Summary ---
Author Organization [facility] [address] Care Team Providers Care Digital Imaging Technician Name Role Phone Camille Barbour JENNIFER Primary Care Provider [phone] Encounter Details Date Type Department Care Team (Late st Contact Info) Description 07/23/2020 Orders Only Cardiology at [address] [phone] Bina Jordan RN Elevated troponin Social History Tobacco Use Types Packs/Day Years [...] on file documented as of this encounter Results * EKG 12 Lead (07/25/2020 10:57 AM EST) Ventricular rate 57 BPM MUSE SYSTEM Atrial Rate 57 BPM MUSE SYSTEM P-R Interval 166 ms MUSE SYSTEM QRS Duration 90 ms MUSE SYSTEM Q-T Interval 370 ms MUSE SYSTEM QTC Calculated (Bezet) 360 ms MUSE SYSTEM Calculated P Rentz 17 degrees MUSE SYSTEM Calculated R Rentz 39 degrees MUSE SYSTEM Calculated T Rentz 28 degrees MUSE SYSTEM INTERPRETATION Sinus bradycardia with sinus arrhythmia Nonspecific T wave abnormality Abnormal ECG When compared with ECG of 06-MAY-2020 01:46, No significant change was found Confirmed by Neo Canales ([id number]) on 07/25/2020 12:47:48 PM MUSE SYSTEM 07/25/2020 10:5 7 AM EST 07/25/2020 12:47 PM EST Reese Geronimo MD ECG ORDERABLES RFIDeas SYSTEM documented in this encounter Visit Diagnoses Diagnosis Elevated troponin Other abnormal blood chemistry documented in this encounter Care Teams Digital Imaging Technician Relationship Specialty Start Date End Date Camille Barbour APRN [address] [place] [address] [address] [facility] [address] [place] [address] PCP - General Family Medicine 05/05/20 documented as of this encounter
--- OUTSIDE RECORDS SUMMARY | 2024-06-06 14:33 | XMS_ITS | Encounter Summary ---
Author Organization [facility] Address [address] [place] [address] Care Team Providers Care Environmental Services Coordinator Name Role Phone Unknown, Provider Primary Care Provider Mellissava ilable Encounter Details Date Type Department Care Team (Late st Contact Info) Description 10/24/2019 Lab Requisition [facility] Pathology & Laboratory Medicine - [facility] [address] [place] [address] Gab Adrian MD [address] [phone] Encounter for other general examination Social History Tobacco Use Types Packs/Day Years [...] Procedure Name Priority Date/Time Associated Diagnosis Comments COVID-19 TESTING Today 10/24/2019 10:1 9 EDT Encounter for other general examination documented in this encounter Results * COVID-19 TESTING (10/24/2019 10:19 EDT) COVID-19 Result Not Detected 10/25/2019 19:52 EDT [facility] Comment:Assayed by [facility], [place], [place] Swab ENTIRE NASOPHARYNX / Unknown Not Given / Unknown 10/24/2019 10:19 EDT 10/24/2019 15:42 EDT us Gab Adrian MD MICROBIOLOGY - GENERAL ORDERABLE S Final Result [facility] [address] [place] [address] documented in this encounter Visit Diagnoses Diagnosis Encounter for other general examination documented in this encounter Care Teams Environmental Services Coordinator Relationship Specialty Start Date End Date Unknown, Provider, PCP - General 02/16/18 documented as of this encounter
--- OUTSIDE RECORDS SUMMARY | 2024-06-06 14:33 | XMS_ITS | Encounter Summary ---
Author Organization [facility] Address [facility] [place] [address] Care Team Providers Care Pyrotechnic Mixer Name Role Phone Camille Barbour JENNIFER Primary Care Provider [phone] Encounter Details Date Type Department Care Team (Late st Contact Info) Description 05/31/2021 11:00 AM EST Office Visit Cardiology at [address] [phone] Mathieu Noble MD [facility] [place] [address] Joe Talavera MD [facility] [place] [address] History of myocarditis Social History Tobacco Use Types Packs/Day Years [...] Sign Reading Time Taken Comments Blood Pressure 120/73 05/31/2021 10:59 AM EST Pulse 67 05/31/2021 10:59 AM EST Temperature - - Respiratory Rate - - Oxygen Saturation 100% 05/31/2021 10:59 AM EST Inhaled Oxygen Concentration - - Weight 145.2 kg (320 lb) 05/31/2021 10:59 AM EST Height 190.5 cm (6' 3) 05/31/2021 10:59 AM EST Body Mass Index 40 05/31/2021 10:59 AM EST documented in this encounter Progress Notes * Senser, Joe Champion MD - 05/31/2021 11:00 AM EST Images from the original note were not included. [facility] [address] Jones, [place] [phone] CARDIOLOGY OUTPATIENT NOTE PATIENT NAME: Alcides Lo PRIMARY CARE PROVIDER: Camille Barbour APRN REFERRING PROVIDER: Camille Barbour PROBLEM LIST: Cardiology Problems: 1. Viral Myocarditis with mildly reduced EF 04/2020 Pertinent Cardiology Studies: 1. 04/2020 CMR - borderline reduced EF at 52%, patchy epicardial DGE consistent with a diagnosis ofmyocarditis. 2. 04/2020 TTE technically difficult - EF 60%, low normal RV function, apical hypokinesis. 3. cMRI 08/02/2020: Near-complete resolution of patchy subepicardial enhancement in basal left ventricular lateral wall. Trace residual low-level delayed enhancement, likely minimal post inflammatory scarring. LVEF 55%. HPI: Alcides Lo is a 26 y.o. male with no significant PMH who presented for URI symptoms and concern for COVID 19 and was found to have enterovirus with positive troponin secondary to a viral myocarditis confirmed by CMR in 04/2020 w/ borderline reduced EF and DGE with follow up MRI with normalMRI and near resolution of DGE. He presents today with his mother for follow up after he experienced vague symptoms that later had been diagnosed as lyme disease. Not regularly taking metoprolol. He was doing well. However, recently has been having vague symptoms of lightheadedness, fatigue, aches and was diagnosed with lyme disease. He is finishing up treatment with doxycycline. He had a Holter monitor while not feeling well, which I reviewed and was completely normal (only occasional PVC's). Denied syncope, shortness of breath on exertion, chest pain. Did have some occasional palpitations. He has not resumed exercise to a level prior to his bout of myocarditis. He used to be pretty in to weight lifting. Still smoking cigarettes although actively trying to quit. Social Hx: Lives with a room mate in [place], [place]. Current smoker (only smokes 1-2 cigarettes per month), social EtOH, smokes marijuana occasionally. 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 Family Hx (Cardiac): no cardiac history or h/o sudden Patient Active Problem List Diagnosis Code ??? Suspected COVID-19 virus infection Z20.822 ??? Rhinovirus B34.8 ??? Acute viral myocarditis I40.0 ??? Elevated troponin R77.8 ??? Hypokinesis R68.89 Anxiety. No past surgical history on file. Meds: Outpatient Medications Marked as Taking for the 05/31/21 encounter (Office Visit) with Mathieu Noble MD Medication Sig Dispense Refill ??? doxycycline (VIBRAMYCIN) 100 mg Capsule TAKE ONE CAPSULE BY MOUTH TWICE A DAY ??? metoprolol succinate XL (Toprol-XL) 100 mg Tablet Sustained Release 24 hr TAKE ONE TABLET BY MOUTH EVERY DAY ??? ibuprofen (Advil;Motrin) 600 mg Tablet Take 1 tablet by mouth every 6 hours as needed for Pain.30 tablet 0 24 HR Review of Systems: 10 point ROS was performed and pertinent positives and negatives are included above. Vitals: Last value Range last 24 hrs Temperature Temp: -- Heart Rate Heart Rate: 67 Heart Rate: [67] Blood Pressure BP: 120/73 BP: (120)/(73) Respiratory Rate Resp: -- SpO2 SpO2: 100 % SpO2: [100 %] Examination: CONST: Pleasant, Well-appearing NEURO: Oriented x3; no obvious deficits PSYCH: NAD, Normal mood HEENT: Non-icteric sclera MSK: Ambulates w/o difficulty CV: JVP not elevated; RRR, normal S1+S2, no murmurs PULM: CTAB GI: Soft, non-tender, non-distended, +BS EXTREMITIES: No lower extremity edema; 2+ Radial pulses bilaterally SKIN: No rashes Laboratory: No results for input(s): WBC, HGB, HCT, PLATELET in the last 168 hours. No results for input(s): NA, K, CL, CO2, BUN, CREATININE in the last 168 hours. No results for input(s): AST, ALT, ALKPHOS, BILITOT, BILIDIR in the last 168 hours. No results for input(s): CALCIUM, PHOS in the last 168 hours. EKG: NSR with non-specific T-wave changes relatively similar to prior. Diagnostic Studies: (see above) I have personally reviewed the above ECG & imaging studies ASSESSMENT: Alcides Lo is a 26 y.o. male with no significant PMH who presented for URI symptoms and concernfor COVID 19 and was found to have enterovirus with positive troponin secondary to a viral myocarditis confirmed by CMR in 04/2020 w/ borderline reduced EF and DGE with follow up MRI with normal MRI and near resolution of DGE. He presents today with his mother for follow up after he experienced vague symptoms that later had been diagnosed as lyme disease. # History of viral myocarditis - recovered EF and nearly resolved DGE on follow up MRI. I think thebenefit for metoprolol is unproven and he is fine to stop this. Ok to resume full exercise, which Christine-iterated to him. # Tobacco use - recommended cessation. He plans on quitting after the winter. Follow up PRN. Patient was seen and discussed with Dr. Noble. Joe Talavera MD 05/31/21 11:28 AM I have seen the patient and reviewed the fellow's above history and I agree with the details as written. The assessment and plan were formulated in discussion with me and I agree with them as documented. documented in this encounter Plan of Treatment Not on file documented as of this encounter Procedures Procedure Name Priority Date/Time Associated Diagnosis Comments EKG 12-LEAD Routine 05/31/2021 11:12 AM EST History of myocarditis documented in this encounter Results * EKG 12 Lead (05/31/2021 11:12 AM EST) Ventricular rate 55 BPM MUSE SYSTEM Atrial Rate 55 BPM MUSE SYSTEM P-R Interval 166 ms MUSE SYSTEM QRS Duration 90 ms MUSE SYSTEM Q-T Interval 394 ms MUSE SYSTEM QTC Calculated (Bezet) 376 ms MUSE SYSTEM Calculated P Roxana 11 degrees MUSE SYSTEM Calculated R Roxana 34 degrees MUSE SYSTEM Calculated T Roxana 25 degrees MUSE SYSTEM INTERPRETATION Sinus bradycardia with sinus arrhythmia Otherwise normal ECG When compared with ECG of 25-JUL-2020 10:57, Nonspecific T wave abnormality no longer evident in Anterolateral leads Confirmed by MD Richard, Rg Dietrich ([id number]) on 05/31/2021 11:45:40 AM MUSE SYSTEM 05/31/2021 11:1 2 AM EST 05/31/2021 11:45 AM EST Mathieu Noble MD ECG ORDERABLES MUSE SYSTEM documented in this encounter Visit Diagnoses Diagnosis History of myocarditis Personal history of other diseases of circulatory system documented in this encounter Care Teams Pyrotechnic Mixer Relationship Specialty Start Date End Date Camille Barbour APRN [address] [place] [address] PCP - General Family Medicine 05/05/20 documented as of this encounter
--- OUTSIDE RECORDS SUMMARY | 2024-06-06 14:33 | XMS_ITS | Encounter Summary ---
Author Organization [facility] Address [address] [place] [address] Care Team Providers Care Records Custodian Name Role Phone Unknown, Provider Primary Care Provider Unava ilable Encounter Details Date Type Department Care Team (Late st Contact Info) Description 04/13/[address] [facility] Pathology & Laboratory Medicine - [facility] [address] [place], [place] [address] Outr Resulting Lab, Provider Social History Tobacco [...] Comments ZZCOVID-19 TEST [facility] PCR Today 04/12/2021 10:45 EDT COVID-19 TESTING Routine 04/12/2021 10:4 5 EDT documented in this encounter Results * COVID-19 TEST [facility] PCR (04/12/2021 10:45 EDT) Swab ENTIRE NASOPHARYNX / Unknown 04/12/2021 10:45 EDT 04/13/2021 22:31 EDT us Provider Outr Resulting Lab MICROBIOLOGY - GENER AL ORDERABLES Final Result [facility] [address] [place] [address] * COVID-19 TESTING (04/12/2021 10:45 EDT) COVID-19 rt-PCR Result Negative Negative 04/14/2021 14:07 EDT [facility] Comment: This test has not [...] clinical observations, patient history, and epidemiological information. Performed on the [employer] instrument Performing Lab [facility] 04/14/2021 14:07 EDT [facility] Swab 04/12/2021 10:4 5 EDT 04/13/2021 22:31 EDT us Provider Outr Resulting Lab MICROBIOLOGY - GENER AL ORDERABLES Final Result [facility] [address] [place] [address] documented in this encounter Visit Diagnoses Not on filedocumented in this encounter Care Teams Records Custodian Relationship Specialty Start Date End Date Unknown, Provider, PCP - General 02/16/18 documented as of this encounter
--- OUTSIDE RECORDS SUMMARY | 2024-06-06 14:33 | XMS_ITS | Referral Summary ---
Author Organization [facility] Address [address] [place] [address] Care Team Providers Care Medical Coding Manager Name Role Phone Unknown, Provider Primary Care Provider Unava ilable Social History [...] Orientation Not on file Plan of Treatment Not on file Care Teams Medical Coding Manager Relationship Specialty Start Date End Date Unknown, Provider, PCP - General 02/16/18
--- OUTSIDE RECORDS SUMMARY | 2024-06-06 14:33 | XMS_ITS | Encounter Summary ---
Author Organization [facility] Address [address] [place] [address] Care Team Providers Care Avionics Mechanic Name Role Phone Unknown, Provider Primary Care Provider Unava ilable Encounter Details Date Type Department Care Team (Late st Contact Info) Description 04/20/2021 Lab Requisition [facility] Pathology & Laboratory Medicine - [address] [address] Outr Resulting Lab, Provider Social History Tobacco [...] Procedure Name Priority Date/Time Associated Diagnosis Comments LYME ANTIBODY CONFIRMATION Today 04/19/2021 15:50 EDT LYME AB Routine 04/19/2021 15:50 EDT documented in this encounter Results * (ABNORMAL) LYME ANTIBODY CONFIRMATION (04/19/2021 15:50 EDT) Lyme IgG Antibody Positive(A) Negative 2020 15:03 EDT [facility] Comment:Specific anti-Borrel ia burgdorfei IgG antibodies are detected. Lyme IgM Antibody Negative Negative 021 15:03 EDT [facility] Comment:Specific anti-Borrel ia burgdorfei IgM antibodies are not detected. This does not exclude the possibility of B. burgdorferi infection. If exposure to B. burgdorferi is suspected, a second sample should be collected and tested 2-4 weeks later. Lyme Antibody Confirmation Interpretation See Comment 04/22/2021 15:03 EDT [facility] Comment:Indicative of B. bur gdorferi infection at some time in the past. Blood VENOUS BLOOD / Unknown 04/19/2021 15:50 EDT 04/21/2021 16:30 EDT Narrative [facility] - 04/22/2021 15:03 EDT New methodology in use 01/28/2021. us Provider Outr Resulting Lab IMMUNOLOGY AND SEROL OGY ORDERABLES Final Result Performing Organization Address [facility] Co de Phone Number [facility] [address] [place] [address] * (ABNORMAL) LYME AB (04/19/2021 15:50 EDT) Lyme Ab Equivocal (A) Negative 04/22/2021 14:22 EDT [facility] Comment: Lyme confirmation added by reflex. The [employer] Lyme Liaison Lyme Total Antibody Plus assay contains antigens from Borrelia burgdorferi, Borrelia garinii, and Borelia afzelli. Results from the second-step confirmation tests that detect only B. burgdorferi specific antigens should be interpreted with caution. Blood VENOUS BLOOD / Unknown 04/19/2021 15:50 EDT 04/21/2021 16:30 EDT us Provider Outr Resulting Lab IMMUNOLOGY AND SEROL OGY ORDERABLES Final Result [facility] [address] [place] [address] documented in this encounter Visit Diagnoses Not on filedocumented in this encounter Care Teams Avionics Mechanic Relationship Specialty Start Date End Date Unknown, Provider, PCP - General 02/16/18 documented as of this encounter
--- OUTSIDE RECORDS SUMMARY | 2024-06-06 14:33 | XMS_ITS | Encounter Summary ---
Author Organization [facility] [place] [address] Care Team Providers Care Payable Manager Name Role Phone Camille Barbour JENNIFER Primary Care Provider [phone] Reason for Referral * Diagnostic Test (Routine) - Closed Specialty Diagnoses / Procedures Referred By Contac t Referred To Contact Radiology Diagnoses Acute viral myocarditis Procedures MRI Cardiac Morphology Function wwo Contrast SenserJoe MD [facility] [place] [address] [place] [address] Referral ID Status Reason Start Date Expiration Date V isits Requested Visits Authorized [id number] Closed Specialty Service Requested 07/25/2020 01/22/2022 1 1 Reason for Visit * Consultation (Routine) - Closed Specialty Diagnoses / Procedures Referred By Contac t Referred To Contact Cardiology Diagnoses Elevated troponin Acute viral myocarditis Enteroviral infection Rhinovirus I am referring to Cardiology my 25 y.o. male patient Alcides Lo for evaluation.follow up recovery from viral (rhino/enteroviral) myocarditis with elevated troponin T 0.5, consider utility of stress test *Jose Ghosh MD [facility] [place] [address] [facility] Cardiology [address] [place] [phone] Referral ID Status Reason Start Date Expiration Date V isits Requested Visits Authorized [id number] Closed Specialty Service Requested 05/08/2020 05/08/2021 1 1 Encounter Details Date Type Department Care Team (Late st Contact Info) Description 07/25/2020 11:00 AM EST Office Visit Cardiology at [address] [address] Reese Geronimo MD [facility] [place] [address] Joe Talavera MD [facility] [place] [address] Acute viral myocarditis (Primary Dx); Elevated troponin Social History Tobacco Use Types [...] Sign Reading Time Taken Comments Blood Pressure 133/78 07/25/2020 10:59 AM EST Pulse 92 07/25/2020 10:59 AM EST Temperature - - Respiratory Rate - - Oxygen Saturation 99% 07/25/2020 10:59 AM EST Inhaled Oxygen Concentration - - Weight 149.2 kg (329 lb) 07/25/2020 10:59 AM EST Height 190.5 cm (6' 3) 07/25/2020 10:59 AM EST Body Mass Index 41.12 07/25/2020 10:59 AM EST documented in this encounter Patient Instructions * Patient Instructions* Joe Talavera MD - 07/25/2020 11:00 AM EST Images from the original note were not included. Patient Education Learning About Myocarditis What is myocarditis? Myocarditis is inflammation of the heart muscle. It may occur after an infection, such as diphtheria, rheumatic fever, or tuberculosis. It may also happen with other damage to the heart from toxins, certain drugs, or an autoimmune disease. The inflammation is part of an immune system response. The body's natural defense system attacks the heart. This can cause serious heart problems, such as dilated cardiomyopathy and heart failure. With these problems, the heart can't pump blood as well as it should. Myocarditis should be treated by a doctor as soon as possible. What are the symptoms? You may be short of breath. You may also have chest pain, feel tired, or have palpitations. (This is the uncomfortable feeling that your heart is beating fast or not in the usual way). Some of these symptoms are similar to symptoms of other heart problems, such as heart failure. In some cases, there may not be any symptoms. Your doctor may find signs of myocarditis while doingother tests on your heart. How is it diagnosed? Your doctor will give you some tests if you have symptoms of myocarditis. You may get an electrocardiogram (EKG or ECG). You may also get other imaging tests like an echocardiogram or MRI. You may get lab tests. Blood tests might be done to check for heart muscle injury. Your symptoms and test results may be similar to those of people who are having a heart attack. So your doctor might recommend a coronary angiogram to check for coronary artery disease, which can cause a heart attack. You may also need a biopsy in some cases. A biopsy (sample of heart tissue) can confirm if you havemyocarditis. And it may help the doctor find the cause. How is it treated? Treatment for myocarditis includes finding and treating the cause. If you are having other serious heart problems, your doctor will treat those at the same time. You may need to take medicine for your heart. If a bacterial infection is the cause, you may need to take antibiotics. Lifestyle changes, such asgetting more rest, may be part of the treatment. Many people recover completely from myocarditis. But some people may have long- term problems from it. Follow-up care is a maria part of your treatment and safety. Be sure to make and go to all appointments, and call your doctor if you are having problems. It's also a good idea to know your test resultsand keep a list of the medicines you take. Where can you learn more? Visit our [employer] information library at https://[employer] You can also view health information on [employer], your personal patient account. Log in or sign uptoday. Enter M120 in the search box to learn more about Learning About Myocarditis. Current as of: March 12, 2020?Content Version: 12.7 ?? [employer]. Care instructions adapted under license by [facility]. If you have questions about a medical condition or this instruction, always ask your healthcare professional. [employer] disclaims any warranty or liability for your use of this information. Patient Education Learning About Myocarditis What is myocarditis? Myocarditis is inflammation of the heart muscle. It may occur after an infection, such as diphtheria, rheumatic fever, or tuberculosis. It may also happen with other damage to the heart from toxins, certain drugs, or an autoimmune disease. The inflammation is part of an immune system response. The body's natural defense system attacks the heart. This can cause serious heart problems, such as dilated cardiomyopathy and heart failure. With these problems, the heart can't pump blood as well as it should. Myocarditis should be treated by a doctor as soon as possible. What are the symptoms? You may be short of breath. You may also have chest pain, feel tired, or have palpitations. (This is the uncomfortable feeling that your heart is beating fast or not in the usual way). Some of these symptoms are similar to symptoms of other heart problems, such as heart failure. In some cases, there may not be any symptoms. Your doctor may find signs of myocarditis while doingother tests on your heart. How is it diagnosed? Your doctor will give you some tests if you have symptoms of myocarditis. You may get an electrocardiogram (EKG or ECG). You may also get other imaging tests like an echocardiogram or MRI. You may get lab tests. Blood tests might be done to check for heart muscle injury. Your symptoms and test results may be similar to those of people who are having a heart attack. So your doctor might recommend a coronary angiogram to check for coronary artery disease, which can cause a heart attack. You may also need a biopsy in some cases. A biopsy (sample of heart tissue) can confirm if you havemyocarditis. And it may help the doctor find the cause. How is it treated? Treatment for myocarditis includes finding and treating the cause. If you are having other serious heart problems, your doctor will treat those at the same time. You may need to take medicine for your heart. If a bacterial infection is the cause, you may need to take antibiotics. Lifestyle changes, such asgetting more rest, may be part of the treatment. Many people recover completely from myocarditis. But some people may have long- term problems from it. Follow-up care is a maria part of your treatment and safety. Be sure to make and go to all appointments, and call your doctor if you are having problems. It's also a good idea to know your test resultsand keep a list of the medicines you take. Where can you learn more? Visit our [employer] information library at https://[employer] You can also view health information on [employer], your personal patient account. Log in or sign uptoday. Enter M120 in the search box to learn more about Learning About Myocarditis. Current as of: March 12, 2020?Content Version: 12.7 ?? [id number] [employer]. Care instructions adapted under license by [facility]. If you have questions about a medical condition or this instruction, always ask your healthcare professional. [employer] disclaims any warranty or liability for your use of this information. documented in this encounter Progress Notes * Joe Talavera MD - 07/25/2020 11:00 AM EST Images from the original note were not included. [facility] [place] [address] [address] CARDIOLOGY OUTPATIENT NOTE PATIENT NAME: Alcides Lo PRIMARY CARE PROVIDER: Camille Barbour APRN REFERRING PROVIDER: Camille Barbour PROBLEM LIST: Cardiology Problems: 1. Viral Myocarditis with mildly reduced EF 04/2020 Pertinent Cardiology Studies: 1. 04/2020 CMR - borderline reduced EF at 52%, patchy epicardial DGE consistent with a diagnosis ofmyocarditis. 2. 04/2020 TTE technically difficult - EF 60%, low normal RV function, apical hypokinesis. HPI: Alcides Lo is a 25 y.o. male with no significant PMH who presented for URI symptoms and concern for COVID 19 and was found to have enterovirus with positive troponin secondary to a viral myocarditis confirmed by CMR in 04/2020 w/ borderline reduced EF. He presents today with his mother forfollow up. Due to elevated risk of SCD, he was discharged with activity restriction and on a BB. He had residual shortness of breath that mostly resolved 1 week after discharge in April. He has been having gradually improving fatigue over the past couple months. He is not feeling back to baseline, but he isnot sure if this is related to deconditioning or medication effect from BB. He has been ramping up activity level and has on occasion performed activities that would qualify as heavy exertion (squatsand other exercises), which is against recommendations. He feels more fatigued than normal after these types of activities. Due to persistent fatigue, he had laboratory work up performed at an urgent care, which included a negative troponin I about a week ago. Social Hx: Lives with a room mate in [place], [place]. Current smoker (only smokes 1-2 cigarettes per month), social EtOH, smokes marijuana occasionally. Family Hx (Cardiac): no cardiac history or h/o sudden Patient Active Problem List Diagnosis Code ??? Suspected COVID-19 virus infection Z20.822 ??? Rhinovirus B34.8 ??? Acute viral myocarditis I40.0 ??? Elevated troponin R77.8 ??? Hypokinesis R68.89 Anxiety. No past surgical history on file. Meds: Outpatient Medications Marked as Taking for the 07/25/20 encounter (Office Visit) with Reese Geronimo MD Medication Sig Dispense Refill ??? metoprolol succinate XL (Toprol-XL) 100 mg [...] Temperature Temp: -- Heart Rate Heart Rate: 92 Heart Rate: [92] Blood Pressure BP: 133/78 BP: (133)/(78) Respiratory Rate Resp: -- SpO2 SpO2: 99 % SpO2: [99 %] Examination: CONST: Pleasant, Well-appearing NEURO: Oriented [...] imaging studies ASSESSMENT: Alcides Lo is a 25 y.o. male with no significant PMH who presented for URI symptoms and concernfor COVID 19 and was found to have enterovirus with positive troponin secondary to a viral myocarditis confirmed by CMR in 04/2020 w/ borderline reduced EF. Symptoms of myocarditis seem to have resolved, fatigue may be symptom from myocarditis, but suspectdeconditioning or BB effect. Troponin being negative is reassuring, but subtle EKG changes raise possibility of residual active disease. Prior to full resumption of activity and consideration of downtitrating BB, will repeat CMR to look for resolution of rosalva enhancement (preferred over echo due to poor windows and additional sensitivity for active myocarditis). Continue BB for now. If MRI normal, will decrease to 50 mg and stop after additional 6 months of metoprolol. He is interested in alternative medication for anxiety, as metoprolol has improved his symptoms. Cautioned that given his anxiety is not strictly performance induced, BB would not be first line treatment and he should seek the opinion of his PCP. Will follow up with patient over the phone following CMR and PRN thereafter. Patient was seen and discussed with Dr. Geronimo. Joe Talavera MD 07/25/20 12:07 PM * Reese Geronimo MD - 07/25/2020 11:00 AM EST Images from the original note were not included. Cardiology Staff Addendum: This patient was seen today and personally interviewed and examined. Agree with documentation by Dr. Talavera, which I have reviewed and independently confirmed. Briefly, this 25-year-old gentleman hasa history of acute myocarditis related to Enterococcus infection and this all took place in April. He has been generally doing well and his chief issue has been ongoing fatigue. He reports no major shortness of breath, chest pain, etc. His exam today is unremarkable and accurately documented by the fellow. Our plan is to obtain a repeat cardiac MRI to look for resolution of his acute inflammation and if this is the case, consider weaning his beta-liz since this is likely contributing to his fatigue. Reese Geronimo MD, [facility], [facility] documented in this encounter Plan of Treatment Not on file documented as of this encounter Procedures Procedure Name Priority Date/Time Associated Diagnosis Comments EKG 12-LEAD Routine 07/25/2020 10:57 AM EST Elevated troponin documented in this encounter Results * MRI [...] report, please contact the number below. ? Narrative 08/10/2020 4:46 PM EST EXAMINATION: MRI [...] below. Electronically signed by: Purvi Rajan MD, [facility]([phone]), at 08/10/2020 4:46 PM Reese Geronimo MD IMG MRI ORDERABLES * EKG 12 Lead (07/25/2020 10:57 AM EST) Ventricular rate 57 BPM MUSE SYSTEM Atrial Rate 57 BPM MUSE SYSTEM P-R Interval 166 ms MUSE SYSTEM QRS Duration 90 ms MUSE SYSTEM Q-T Interval 370 ms MUSE SYSTEM QTC Calculated (Bezet) 360 ms MUSE SYSTEM Calculated P Denhoff 17 degrees MUSE SYSTEM Calculated R Denhoff 39 degrees MUSE SYSTEM Calculated T Denhoff 28 degrees MUSE SYSTEM INTERPRETATION Sinus bradycardia with sinus arrhythmia Nonspecific T wave abnormality Abnormal ECG When compared with ECG of 06-MAY-2020 01:46, No significant change was found Confirmed by Neo Canales ([id number]) on 07/25/2020 12:47:48 PM MUSE SYSTEM 07/25/2020 10:5 7 AM EST 07/25/2020 12:47 PM EST Reese Geronimo MD ECG ORDERABLES MUSE SYSTEM documented in this encounter Visit Diagnoses Diagnosis Acute viral myocarditis- Primary Elevated troponin Other abnormal blood chemistry Acute viral myocarditis documented in this encounter Care Teams Payable Manager Relationship Specialty Start Date End Date Camille Barbour APRN [address] [place] [address] [address] [place] [address] PCP - General Family Medicine 05/05/20 documented as of this encounter
--- OUTSIDE RECORDS SUMMARY | 2024-06-06 14:33 | XMS_ITS | Encounter Summary ---
Author Organization [facility] Address [address] [place] [address] Care Team Providers Care Amf Mechanic Name Role Phone Unknown, Provider Primary Care Provider Unava ilable Encounter Details Date Type Department Care Team (Late st Contact Info) Description 06/26/2021 Lab Requisition [facility] Pathology & Laboratory Medicine - [address] [id number] Outr Resulting Lab, Provider Social History Tobacco [...] Comments ZZCOVID-19 TEST [facility] PCR Today 06/25/2021 10:50 EST COVID-19 TESTING Routine 06/25/2021 10:5 0 EST documented in this encounter Results * COVID-19 TEST [facility] PCR (06/25/2021 10:50 EST) Swab 06/25/2021 10:5 0 EST 06/26/2021 16:24 EST us Provider Outr Resulting Lab MICROBIOLOGY - GENER AL ORDERABLES Final Result [facility] [address] [place] [address] * COVID-19 TESTING (06/25/2021 10:50 EST) COVID-19 rt-PCR Result Negative Negative 06/27/2021 13:01 EST [facility] Comment: This test has not [...] clinical observations, patient history, and epidemiological information. This test was developed and its performance characteristics determined by [facility]. It has not been cleared or approved by the US Food and Drug Administration. FDA does not require this test to go through premarket FDA review. This test is used for clinical purposes. It should not be regarded as investigational or for research. This laboratory is certified under the Clinical Laboratory Improvement Amendments (CLIA) as qualified to perform high complexity clinical laboratory testing. This test is based on the [facility] COVID-19 Emergency Use Authorization (EUA) assay, with minor modification as defined by the FDA Performed on the [employer] 7 Flex RT-PCR System. Performing Lab [facility] Lab 06/27/2021 13:01 EST [facility] Swab 06/25/2021 10:5 0 EST 06/26/2021 16:24 EST us Provider Outr Resulting Lab MICROBIOLOGY - GENER AL ORDERABLES Final Result [facility] [address] [place] [address] documented in this encounter Visit Diagnoses Not on filedocumented in this encounter Care Teams Amf Mechanic Relationship Specialty Start Date End Date Unknown, Provider, PCP - General 02/16/18 documented as of this encounter
--- OUTSIDE RECORDS SUMMARY | 2024-06-06 14:33 | XMS_ITS | Encounter Summary ---
Author Organization [facility] Address [address] [place] [address] Care Team Providers Care Carpet Loom Fixer Name Role Phone Unknown, Provider Primary Care Provider Unava ilable Encounter Details Date Type Department Care Team (Late st Contact Info) Description 12/03/2023 Lab Requisition [facility] Pathology & Laboratory Medicine - [address] [id number] Outr Resulting Lab, Provider Social History Tobacco [...] Procedure Name Priority Date/Time Associated Diagnosis Comments CELIAC DISEASE PANEL Routine 12/03/2023 13:13 EDT documented in this encounter Results * CELIAC DISEASE PANEL (12/03/2023 13:13 EDT) Tissue Transglutaminase Antibody, IgA <4.0 <20.0 CU 12/07/2023 14:23 EDT [facility] Comment: A negative result may be due to IgA deficiency and does not rule out celiac disease. Negative: <20.0 CU Weak Positive: 20.0-30.0 CU Positive: >30.0 CU Results were obtained with the [employer] Flash h-tTG IgA chemiluminescent immunoassay. Values obtained with different manufacturers' assay methods may not be used interchangeably. IgA 272 85 - 499 mg/dL 12/07/2023 14:23 EDT [facility] Celiac Disease Interpretation Negative Serology. Celiac disease unlikely. Approximately 10% of patients with celiac disease are seronegative. Patients who are already adhering to a gluten-free diet may also be seronegative. If celiac disease is highly clinically suspected, referral to gastroenterology for additional evaluation is recommended. 12/07/2023 14:23 EDT [facility] Blood VENOUS BLOOD / Unknown 12/03/2023 13:13 EDT 12/03/2023 21:14 EDT us Provider Outr Resulting Lab IMMUNOLOGY AND SEROL OGY ORDERABLES Final Result [facility] [address] [place], [place] [id number] documented in this encounter Visit Diagnoses Not on filedocumented in this encounter Care Teams Carpet Loom Fixer Relationship Specialty Start Date End Date Unknown, Provider, PCP - General 02/16/18 documented as of this encounter
--- OUTSIDE RECORDS SUMMARY | 2024-06-06 14:33 | XMS_ITS | Encounter Summary ---
Author Organization [facility] [place] [address] Care Team Providers Care Accounting Generalist Name Role Phone Camille Barbour JENNIFER Primary Care Provider [phone] Encounter Details Date Type Department Care Team (Late st Contact Info) Description 05/05/2020 10:40 PM EDT Ancillary Procedure Radiology Library at [facility] [place] [address] [place] [address] Social History Tobacco Use Types Packs/Day Years Used Date Smoking Tobacco: Never Assessed Sex and Gender Information Value Date Recorded Sex Assigned at Not on file Gender Identity Not on file Sexual Orientation Not on file documented as of this encounter Plan of Treatment Not on file documented as of this encounter Procedures Procedure Name Priority Date/Time Associated Diagnosis Comments FILM LIBRARY STORAGE ONLY CT CHEST Routine 05/05/2020 10:38 PM EDT documented in this encounter Results * Film Library- Storage Only CT Chest (05/05/2020 10:38 PM EDT) Narrative [facility] - 05/05/2020 10:38 PM EDT This exam is auto-finalizing. It's purpose is for storage only. Dl Sullivan MD IMG FILM LIBRARY ORD ERABLES [place], [place] documented in this encounter Visit Diagnoses Not on filedocumented in this encounter Care Teams Accounting Generalist Relationship Specialty Start Date End Date Camille Barbour APRN [address] [place] [address] PCP - General Family Medicine 05/05/20 documented as of this encounter
--- OUTSIDE RECORDS SUMMARY | 2024-06-06 14:33 | XMS_ITS | Clinical Summary ---
Author Organization [facility] [place] [address] Care Team Providers Care Stereo Equipment Salesperson Name Role Phone KmRudolphCamillehong Mir APRN Primary Care Provider [phone] Allergies Active Allergy Reactions Criticality Noted Date Comments Albuterol Palpitations 05/06/2020 Medications Medication Sig Dispensed Refills Start Date End Date Status ibuprofen (Advil;Motrin) 600 mg Tablet Take 1 tablet by mouth every 6 hours as needed for Pain. 30 tablet 05/07/2020 Active metoprolol succinate XL (Toprol-XL) 100 mg Tablet Sustained Release 24 hr TAKE ONE TABLET BY MOUTH EVERY DAY 07/18/2020 Active doxycycline (VIBRAMYCIN) 100 mg Capsule TAKE ONE CAPSULE BY MOUTH TWICE A DAY 04/23/2021 Active Active Problems Problem Noted Date Diagnosed Date Rhinovirus 05/08/2020 Acute viral myocarditis 05/08/2020 Elevated troponin 05/08/2020 Hypokinesis 05/08/2020 Suspected COVID-19 virus infection 05/06/2020 Social History Tobacco Use Types Packs/Day Years [...] on file Sexual Orientation Not on file Last Filed Vital Signs Vital Sign Reading Time Taken Comments Blood Pressure 120/73 05/31/2021 10:59 AM EST Pulse 67 05/31/2021 10:59 AM EST Temperature 36.7 ??C (98.1 ??F) 05/08/2020 11:07 AM E DT Respiratory Rate 16 05/08/2020 11:07 AM EDT Oxygen Saturation 100% 05/31/2021 10:59 AM EST Inhaled Oxygen Concentration - - Weight 145.2 kg (320 lb) 05/31/2021 10:59 AM EST Height 190.5 cm (6' 3) 05/31/2021 10:59 AM EST Body Mass Index 40 05/31/2021 10:59 AM EST Plan of Treatment Health Maintenance Due Date Last Done Comments Pneumococcal Vaccine: At-Risk 5-64yrs (1 of 2 - PCV) 0 2002 HIV screen 2014 Hepatitis C Screening 2014 Hepatitis B vaccine (0-59 yrs) (1) 2015 Tetanus/Diphtheria/Pertussis Vaccines (1 - Tdap) 03/19 Covid-19 Vaccine (1 - 2023- season) 2024 Influenza (Flu) vaccine (1 o f 1 - Influenza standard series) 03/13/2024 Lipid Screening 05/06/2025 05/06/2020 Procedures Procedure Name Priority Date/Time Associated Diagnosis Comments HDL/CHOL PROFILE Routine 05/06/2020 1:42 AM EDT from Last 3 Months or Most Recently Relevant to Health Maintenance Results * HDL/Cholesterol Profile (05/06/2020 1:42 AM EDT) Cholesterol, Total 137 mg/dL [facility] Comment: Lower Risk: <200 mg/dL Average Risk: 200-239 mg/dL Higher Risk: >gx=015 mg/dL HDL Cholesterol 31 mg/dL [facility] Comment: Males: ?? Higher Risk: <40 mg/dL Females: ?? HIgher Risk: <50 mg/dL Cholesterol/HDL Ratio 4.4 ratio [facility] Chol/HDL Interpretation See Note [facility] Comment: Lipid management should be guided by a patient? s ASCVD risk, goals and preferences. ACC/AHA Guidelines recommend high intensity statin if clinical ASCVD or LDL greater than or equal to 190 mg/dL. http://[email or web address]/NJR-WLR-[email or web address] Measure LDL if Total Cholesterol minus HDL Cholesterol is greater than 220 mg/dL. Adults aged 40-75 with LDL 70-189 mg/dL should have their 10 year ASCVD risk estimated with the ACC/AHA ASCVD risk body shop estimator http://tools.acc.org/IGLOT-Wefl-Mykajfpcs/ Statin should be discussed if risk greater [...] In Lab Jose Herrera MD CHEMISTRY ORDERABLES [facility] [place] [address] from Last 3 Months or Most Recently Relevant to Health Maintenance Advance Directives * Attempt Cardiopulmonary Resuscitation - Inpatient (Latest Code Status on File) Date Activated Date Inactivated Comments 05/06/2020 1:18 AM 05/08/2020 7:31 PM Question Answer Comments Code Status decision made by: Patient Care Teams Stereo Equipment Salesperson Relationship Specialty Start Date End Date Camille Barbour APRN [address] [place] [address] PCP - General Family Medicine 05/05/20
--- OUTSIDE RECORDS SUMMARY | 2024-06-06 14:33 | XMS_ITS | Encounter Summary ---
Author Organization [facility] Address [address] [place] [address] Care Team Providers Care Alum Mixer Name Role Phone Unknown, Provider Primary Care Provider Unava ilable Encounter Details Date Type Department Care Team (Late st Contact Info) Description 10/02/2020 Lab Requisition [facility] Pathology & Laboratory Medicine - [facility] [address], [place] [address] Outr Resulting Lab, Provider Social History Tobacco [...] Comments ZZCOVID-19 TEST [facility] PCR Today 10/02/2020 11:00 EDT COVID-19 TESTING Routine 10/02/2020 11:0 0 EDT documented in this encounter Results * COVID-19 TEST [facility] PCR (10/02/2020 11:00 EDT) Swab ENTIRE NASOPHARYNX / Unknown 10/02/2020 11:00 EDT 10/02/2020 15:52 EDT us Provider Outr Resulting Lab MICROBIOLOGY - GENER AL ORDERABLES Final Result [facility] [address] [place] [address] * COVID-19 TESTING (10/02/2020 11:00 EDT) COVID-19 rt-PCR Result Negative Negative 10/03/2020 13:53 EDT [facility] Comment: This test has [...] developed and its performance characteristics determined by [facility]. It has not been cleared or [...] testing. This test is based on the [facility] COVID-19 Emergency Use Authorization (EUA) assay, with minor modification as defined by the FDA Performed on the TriOvizo 7 Pro RT-PCR System. Performing Lab [facility] 10/03/2020 13:53 EDT [facility] Swab 10/02/2020 11:0 0 EDT 10/02/2020 15:52 EDT us Provider Outr Resulting Lab MICROBIOLOGY - GENER AL ORDERABLES Final Result [facility] [address] [place] [address] documented in this encounter Visit Diagnoses Not on filedocumented in this encounter Care Teams Alum Mixer Relationship Specialty Start Date End Date Unknown, Provider, PCP - General 02/16/18 documented as of this encounter
== END 2024-06-06 14:44 ==
LOC: DI 14:32
PROVIDERS: PCP Nurse Practitioner Family; Visit Provider Nurse Practitioner Family
DX: R05.9 Cough, unspecified (principal)
CPT/HCPCS: 71046

== ENCOUNTER 2025-05-03 14:25 | Outpatient (REF) | payer OTHER, SELFPAY | END 2025-05-03 14:26 | disposition home or self-care (01) | LOC: LBN 14:25 | PROVIDERS: PCP Nurse Practitioner Family; Visit Provider Physician Assistant Medical | DX: J02.9 Acute pharyngitis, unspecified (principal) | CPT/HCPCS: 87070 ==